=== PATIENT | male | born 1955 | race Native Hawaiian/Other Pacific Islander ===

== ENCOUNTER 2016-10-03 05:39 | Outpatient (CLI) | payer BC ==
[~2016-10-03] VITALS: Ht 157.5 cm; Wt 68.4 kg
[~2016-10-03 05:39] MED LIST: ASP81CT PO; ATRV10T PO; GLIP5TAB13 PO; LISI5TAB PO; METF-380 PO; METO50TA7 PO; ONDA4TAB11 PO; OXYC-12 PO; PRM25T PO; RNT150T PO
[2016-10-03] MEDS ORDERED: GLIP10TA13 PO (12:34)
== END 2016-10-03 12:37 ==
LOC: PREOP 05:39
PROVIDERS: ATTEND Surgery
DX: Z01.818 Encounter for other preprocedural examination (principal); K21.9 Gastro-esophageal reflux disease without esophagitis; K62.89 Other specified diseases of anus and rectum; K62.5 Hemorrhage of anus and rectum

== ENCOUNTER 2016-10-16 08:18 | Day surgery (SDC) | payer BC ==
[~2016-10-16] VITALS: Ht 157.5 cm; Wt 68.4 kg
[~2016-10-16 08:18] MED LIST changes: +GLIP10TA13 PO
--- OUTSIDE RECORDS SUMMARY | 2016-10-16 08:23 | XMS REPORT ---
Author Author GERMAN THAKUR Organization eClinicalWorks Address Unknown Phone Unavailable Care Team Providers Care Currency Machine Operator Name Role Phone GERMAN THAKUR CP Unavailable Allergies No Known Allergies Problems Problem Type Condition Code Onset Dates Condition Status Problem Unspecified infective otitis externa 380.10 Active Problem Unspecified hypotension 458.9 Active Problem Routine general medical examination at health care facility V70.0 Active Problem Sinusitis 473.9 Active Problem Dehydration 276.51 Active Problem Otitis media 382.9 Active Problem Impacted cerumen 380.4 Active Problem Unspecified hearing loss 389.9 Active Problem Unspecified subjective visual disturbance 368.10 Active Problem Diabetes mellitus without mention of complication, type II or unspecified type, not stated as uncontrolled 250.00 Active Medications Medication Code System Code Instructions Start Date End Date Status Dosage Lisinopril [facility] [address]-99 5 MG Mar 25, 2014 take 1 tablet by Oral route 1 time per day Metformin HCl [facility] 44521216982 1000 MG TAKE ONE TABLET BY MOUTH TWICE DAILY WITH MORNING AND EVENING MEALS GlipiZIDE [facility] 23373109619 10 MG TAKE ONE TABLET BY MOUTH IN THE MORNING AND ONE-HALF TABLET BY MOUTH EVERY EVENING Results No Known Results Summary Purpose eClinicalWorks Submission
--- OUTSIDE RECORDS SUMMARY | 2016-10-16 08:23 | XMS REPORT ---
Author GERMAN [facility]l [facility] eClinicalWorks Address Unknown Phone Unavailable Care Team Providers Care Sleeve Maker Name Role Phone GERMAN THAKUR CP Unavailable Allergies, Adverse Reactions, Alerts Substance Reaction Event Type N.K.D.A. Info Not Available Non Drug Allergy Problems Problem Type Condition Code Onset Dates Condition Status Problem Routine general medical examination at health care facility V70.0 Active Problem Unspecified hearing loss 389.9 Active Problem Unspecified hypotension 458.9 Active Assessment Type 2 diabetes mellitus without complications E11.9 Active Problem Unspecified infective otitis externa 380.10 Active Problem Otitis media 382.9 Active Problem Sinusitis 473.9 Active Problem Type 2 diabetes mellitus without complications E11.9 Active Problem Diabetes mellitus without mention of complication, type II or unspecified type, not stated as uncontrolled 250.00 Active Problem Impacted cerumen 380.4 Active Problem Dehydration 276.51 Active Problem Unspecified subjective visual disturbance 368.10 Active Medications Medication Code System Code Instructions Start Date End Date Status Dosage Blood Glucose Test Strip NDC 0 Twice daily with lancets 1 Test Blood Glucose Test NDC 0 Blood Glucose 2 times a day ONE TOUCH ULTRA DX E11.9 August 07, 2014 as directed and lancets GlipiZIDE [facility] [address]-99 10 mg Once a day, am, and 1/2 tab in pm 1 tablet Metformin HCl [facility] [address]-28 1000 MG 2 times a day 1 tablet with meals Atorvastatin Calcium [facility] [address]-99 10 mg Once a day 1 tablet Lisinopril [facility] [address]-26 5 mg Once a day 1 tablet Loratadine [facility] [address]-64 10 mg Once a day 1 tablet Procedures Procedure Coding System Code Date Office Visit, Est Pt., Level 3 CPT-4 34892 Jan 21, 2016 GLYCATED HEMOGLOBIN TEST CPT-4 62683 Jan 21, 2016 Vital Signs Date/Time: Jan 21, 2016 Cardiac Monitoring Heart Rate 72 bpm Weight 161.6 lbs Height 63 in BMI 28.62 Index Blood Pressure Diastolic 66 mmHg Blood Pressure Systolic 108 mmHg Results Name Result Date Reference Range Unit Abnormality Flag A1C (IN HOUSE) ----A1C IN HOUSE 8.2 20160121 4.3 - 5.6 % ----Previous A1c 7.4 20160121 ----Lot [id number] ----Exp date 20160121 Summary Purpose eClinicalWorks Submission
--- OUTSIDE RECORDS SUMMARY | 2016-10-16 08:23 | XMS REPORT ---
Author Author GERMAN THAKUR [facility] eClinicalWorks Address Unknown Phone Unavailable Care Team Providers Care Produce Shipper Name Role Phone GERMAN THAKUR CP Unavailable [...] type, not stated as uncontrolled 250.00 Active Assessment Vision changes H53.9 Active Assessment Type 2 diabetes mellitus without complications E11.9 Active Assessment Hearing loss, bilateral H91.93 Active Medications Medication Code System Code Instructions Start Date End Date Status Dosage Blood Glucose Test NDC 0 Blood Glucose 2 times a day ONE TOUCH ULTRA DX 250.01 August 07, 2014 as directed and lancets Blood Glucose Test Strip NDC 0 Twice daily with lancets 1 Test Lisinopril [facility] [address]-60 5 MG Mar 25, 2014 take 1 tablet by Oral route 1 time per day Metformin HCl [facility] 42881288617 1000 MG TAKE ONE TABLET BY MOUTH TWICE DAILY WITH MORNING AND EVENING MEALS GlipiZIDE ND 37259777208 10 MG TAKE ONE TABLET BY MOUTH IN THE MORNING AND ONE-HALF TABLET BY MOUTH EVERY EVENING Procedures Procedure Coding System Code Date Office Visit, Est Pt., Level 3 CPT-4 76771 Mar 17, 2015 GLYCATED HEMOGLOBIN TEST CPT-4 68547 Mar 17, 2015 Vital Signs Date/Time: Mar 17, 2015 Temperature 98.0 F Weight 154 lbs Height 63 in BMI 27.28 Index Blood Pressure Diastolic 62 mmHg Blood Pressure Systolic 140 mmHg Cardiac Monitoring Heart Rate 78 bpm Results Name Result Date Reference Range Unit Abnormality Flag A1C (IN HOUSE) ----A1C IN HOUSE 7.9 [id number] 4.3 - 5.6 % ----Previous A1c 7.1 [id number] ----Lot [id number] ----Exp date 20150317 Summary Purpose eClinicalWorks Submission
--- OUTSIDE RECORDS SUMMARY | 2016-10-16 08:24 | XMS REPORT ---
Author GERMAN [facility] eClinicalWorks Address Unknown Phone Unavailable Care Team Providers Care Hearing Instrument Specialist Name Role Phone GERMAN THAKUR CP Unavailable [...] August 07, 2014 as directed and lancets Atorvastatin Calcium [facility] [address]-77 10 mg Once a day 1 tablet Metformin HCl [facility] [address]-55 1000 MG 2 times a day 1 tablet with meals Loratadine [facility] [address]-24 10 mg Once a day 1 tablet GlipiZIDE [facility] [address]-45 10 mg Once a day, am, and 1/2 tab in pm 1 tablet Lisinopril [facility] [address]-01 5 mg Once a day 1 tablet Colace [facility] 51401255809 100 MG Orally Once a day 1 capsule as needed Procedures Procedure Coding System Code Date Office Visit, Est Pt., Level 3 CPT-4 58752 September 17, 2015 GLYCATED HEMOGLOBIN TEST CPT-4 27907 September 17, 2015 Vital Signs Date/Time: September 17, 2015 Cardiac Monitoring Heart Rate 68 bpm Weight 158.4 lbs Height 63 in Blood Pressure Diastolic 64 mmHg Blood Pressure Systolic 108 mmHg Results No Known Results Summary Purpose eClinicalWorks Submission
--- OUTSIDE RECORDS SUMMARY | 2016-10-16 08:24 | XMS REPORT ---
Author GERMAN Morel Organization [employer]Works Address Unknown Phone Unavailable Care Team Providers Care Care Taker Name Role Phone GERMAN THAKUR CP Unavailable Allergies No Known Allergies Problems Problem Type Condition Code Onset Dates Condition Status Problem Routine general medical examination at health care facility V70.0 Active Problem Unspecified hearing loss 389.9 Active Problem Unspecified hypotension 458.9 Active Problem Unspecified infective otitis externa 380.10 [...] August 07, 2014 as directed and lancets Results No Known Results Summary Purpose eClinicalWorks Submission
--- OUTSIDE RECORDS SUMMARY | 2016-10-16 08:24 | XMS REPORT ---
Author GERMAN Morel Organization eClinicalWorks Address Unknown Phone Unavailable Care Team Providers Care Human Resources Advisor Name Role Phone GERMAN THAKUR CP Unavailable [...] Unspecified subjective visual disturbance 368.10 Active Medications No Known Medications Results No Known Results Summary Purpose eClinicalWorks Submission
--- OUTSIDE RECORDS SUMMARY | 2016-10-16 08:25 | XMS REPORT | Continuity of Care Document ---
Author Author [facility] Address Unknown Phone Unavailable Allergies Medications Problems Date Dx Coded Attending Type Code Diagnosis Diagnosed By 02/14/2012 GERMAN THAKUR APRN 250.00 DIABETES II CONTROLLED (UNCOMPLICATED) 02/14/2012 GERMAN THAKUR APRN 380.4 CERUMEN IMPACTION 02/14/2012 ALLIE CORTEZ DO 250.00 DIABETES II CONTROLLED (UNCOMPLICATED) 02/14/2012 ALLIE CORTEZ DO 380.4 CERUMEN IMPACTION 02/14/2012 GERMAN THAKUR APRN 250.00 DIABETES II CONTROLLED (UNCOMPLICATED) 02/14/2012 GERMAN THAKUR APRN 380.4 CERUMEN IMPACTION 02/14/2012 250.00 DIABETES II CONTROLLED (UNCOMPLICATED) 02/14/2012 380.4 CERUMEN IMPACTION 02/14/2012 250.00 DIABETES II CONTROLLED (UNCOMPLICATED) 02/14/2012 380.4 CERUMEN IMPACTION 02/14/2012 GERMAN THAKUR APRN 250.00 DIABETES MELLITUS TYPE 2 02/14/2012 GERMAN THAKUR APRN 380.4 CERUMEN IMPACTION 02/14/2012 250.00 DIABETES MELLITUS TYPE 2 02/14/2012 380.4 CERUMEN IMPACTION 02/14/2012 GERMAN THAKUR APRN 250.00 DIABETES MELLITUS TYPE 2 02/14/2012 GERMAN THAKUR APRN 380.4 CERUMEN IMPACTION 02/14/2012 OMALLEYVIKTOR DAVIS DDS 250.00 DIABETES MELLITUS TYPE 2 02/14/2012 VIKTOR OMALLEY DDS 380.4 CERUMEN IMPACTION 02/14/2012 GERMAN THAKUR APRN 250.00 DIABETES MELLITUS TYPE 2 02/14/2012 GERMAN THAKUR APRN 380.4 CERUMEN IMPACTION 02/26/2012 ALLIE CORTEZ DO 380.10 INFECTIVE OTITIS EXTERNA UNSPECIFIED 02/26/2012 ALLIE CORTEZ DO V70.0 ROUTINE GENERAL MEDICAL EXAMINATION AT A HEALTH CARE FACILITY 02/26/2012 GERMAN THAKUR APRN 380.10 INFECTIVE OTITIS EXTERNA UNSPECIFIED 02/26/2012 GERMAN THAKUR APRN V70.0 ROUTINE GENERAL MEDICAL EXAMINATION AT A HEALTH CARE FACILITY 02/26/2012 380.10 INFECTIVE OTITIS EXTERNA UNSPECIFIED 02/26/2012 V70.0 ROUTINE GENERAL MEDICAL EXAMINATION AT A HEALTH CARE FACILITY 02/26/2012 380.10 INFECTIVE OTITIS EXTERNA UNSPECIFIED 02/26/2012 V70.0 ROUTINE GENERAL MEDICAL EXAMINATION AT A HEALTH CARE FACILITY 02/26/2012 GERMAN THAKUR APRN 380.10 INFECTIVE OTITIS EXTERNA UNSPECIFIED 02/26/2012 GERMAN THAKUR APRN V70.0 ROUTINE GENERAL MEDICAL EXAMINATION AT A HEALTH CARE FACILITY 02/26/2012 380.10 INFECTIVE OTITIS EXTERNA UNSPECIFIED 02/26/2012 V70.0 ROUTINE GENERAL MEDICAL EXAMINATION AT A HEALTH CARE FACILITY 02/26/2012 GERMAN THAKUR APRN 380.10 INFECTIVE OTITIS EXTERNA UNSPECIFIED 02/26/2012 GERMAN THAKUR APRN V70.0 ROUTINE GENERAL MEDICAL EXAMINATION AT A HEALTH CARE FACILITY 02/26/2012 OM[facility] DDSVIKTOR 380.10 INFECTIVE OTITIS EXTERNA UNSPECIFIED 02/26/2012 [facility] DDSVIKTOR V70.0 ROUTINE GENERAL MEDICAL EXAMINATION AT A HEALTH CARE FACILITY 02/26/2012 GERMAN THAKUR APRN 380.10 INFECTIVE OTITIS EXTERNA UNSPECIFIED 02/26/2012 GERMAN THAKUR APRN V70.0 ROUTINE GENERAL MEDICAL EXAMINATION AT A HEALTH CARE FACILITY 03/19/2012 GERMAN THAKUR APRN 389.9 HEARING LOSS UNSPEC 03/19/2012 GERMAN THAKUR APRN 458.9 HYPOTENSION 03/19/2012 389.9 HEARING LOSS UNSPEC 03/19/2012 458.9 HYPOTENSION 03/19/2012 389.9 HEARING LOSS UNSPEC 03/19/2012 458.9 HYPOTENSION 03/19/2012 GERMAN THAKUR APRN 389.9 HEARING LOSS UNSPEC 03/19/2012 GERMAN THAKUR APRN 458.9 HYPOTENSION 03/19/2012 389.9 HEARING LOSS UNSPEC 03/19/2012 458.9 HYPOTENSION 03/19/2012 GERMAN THAKUR APRN 389.9 HEARING LOSS UNSPEC 03/19/2012 GERMAN THAKUR APRN 458.9 HYPOTENSION 03/19/2012 OM[facility] VIKTOR RAMIREZ 389.9 HEARING LOSS UNSPEC 03/19/2012 VIKTOR OMALLEY DDS 458.9 HYPOTENSION 03/19/2012 GERMAN THAKUR APRN 389.9 HEARING LOSS UNSPEC 03/19/2012 GERMAN THAKUR APRN 458.9 HYPOTENSION 06/05/2012 276.51 DEHYDRATION 06/05/2012 276.51 DEHYDRATION 06/05/2012 GERMAN THAKUR APRN 276.51 DEHYDRATION 06/05/2012 276.51 DEHYDRATION 06/05/2012 GERMAN THAKUR APRN 276.51 DEHYDRATION 06/05/2012 VIKTOR OMALLEY DDS 276.51 DEHYDRATION 06/05/2012 GERMAN THAKUR APRN 276.51 DEHYDRATION 11/06/2012 GERMAN THAKUR APRN 368.10 VISUAL DISTURBANCE UNSPECIFIED 11/06/2012 368.10 VISUAL DISTURBANCE UNSPECIFIED 11/06/2012 GERMAN THAKUR APRN 368.10 VISUAL DISTURBANCE UNSPECIFIED 11/06/2012 VIKTOR OMALLYE DDS 368.10 VISUAL DISTURBANCE UNSPECIFIED 11/06/2012 GERMAN THAKUR APRN 368.10 VISUAL DISTURBANCE UNSPECIFIED Procedures Code [place] [address] ROUTINE VENIPUNCTURE 02/26/2012 92303 A1C (IN-HOUSE) 58612 CMP 02/26/2012 0114144 GFR CALC (RESULT ONLY) 02/26/2012 85538 CBC 02/26/2012 46531 TSH 02/27/2012 30527 REMOVE IMPACTED EAR WAX 02/28/2012 Family Chey Blackburn 03/19/2012 69213 ROUTINE VENIPUNCTURE 06/05/2012 31730 A1C (IN-HOUSE) 77857 CMP 06/05/2012 22164 LIPID PANEL 06/05 67903 CBC 06/05/2012 Archie Maurice 02/17/2013 81044 A1C (IN-HOUSE) Results Encounters ACCT No. Visit Date/Time Discharge Status Pt. Type Provider Facility Loc./Unit Complaint [id number] 03/26/2014 08:42:00 03/26/2014 23: 59:59 CLS Outpatient GERMAN THAKUR APRN [id number] 12/30/2013 10:02:00 12/30/2013 23: 59:59 CLS Outpatient VIKTOR OMALLEY DDS [id number] 03/31/2013 11:48:00 03/31/2013 23: 59:59 CLS Outpatient GERMAN THAKUR APRN [id number] 01/08/2013 05:52:00 01/08/2013 23: 59:59 CLS Outpatient [id number] 11/06/2012 16:39:00 11/06/2012 23: 59:59 CLS Outpatient GERMAN THAKUR APRN [id number] 06/05/2012 11:45:00 06/05/2012 23: 59:59 CLS Outpatient [id number] 03/19/2012 13:33:00 03/19/2012 23: 59:59 CLS Outpatient GERMAN THAKUR APRN [id number] 02/26/2012 09:52:00 02/26/2012 23: 59:59 CLS Outpatient ALLIE CORTEZ DO [id number] 02/14/2012 09:59:00 02/14/2012 23: 59:59 CLS Outpatient GERMAN THAKUR APRN [id number] 06/19/2012 14:49:00 Document Registration
[2016-10-16 08:35] VITALS: BP 131/64
[2016-10-16] MEDS ORDERED: NS IV 500 ML 500 ML IV PRN (08:35)
[2016-10-16] MEDS ORDERED: HURRICAINE EXT TUBE (BENZOCAINE) XX PRN (08:45)
[2016-10-16] MEDS ORDERED: NS IV 500 ML 500 ML ONE (08:53)
[2016-10-16] MEDS ORDERED: ATOR10TA66 PO (09:22)
[2016-10-16] MEDS ORDERED: ATOR10TA PO (09:22)
[2016-10-16] MEDS ORDERED: METF1000 PO (09:22)
[2016-10-16] MEDS ORDERED: fentaNYL INJECTION 100 MCG/2 ML AMP ONE ×2 (11:02)
[2016-10-16] MEDS ORDERED: HURRICAINE EXT TUBE (BENZOCAINE) ONE (11:02)
[2016-10-16] MEDS ORDERED: MIDAZOLAM 2 MG/2 ML (VERSED) VIAL ONE ×3 (11:02)
--- NOTE | 2016-10-16 11:29 | History & Physicial ---
History of Present Illness History of Present Illness Reason for visit/HPI to undergo an upper endoscopy to evaluate symptoms of gastroesophageal reflux and concomitant colonoscopy to investigate rectal bleeding. Most of the history was obtained from his sister, due to his inability with communication in [place]. Date of Admission Date Seen by Provider: Oct 16, 2016 Time Seen by Provider: 11:28 I consulted on this patient on 10/16/16 11:27 Attending Physician Maria D Suggs MD Admitting Physician Lanny,[facility] Allergies and Home Medications Allergies Coded Allergies: No Known Drug Allergies (Unverified , 01/21/12) Home Medications Atorvastatin Calcium 10 Mg Tablet, 10 MG PO HS, (Reported) Glipizide 10 Mg Tablet, 5-10 MG PO BID, (Reported) take 1 (10mg) tab in am take 1/2 of 5mg tab in pm Lisinopril 5 Mg Tablet, 5 MG PO DAILY, (Reported) Metformin HCl 1,000 Mg Tablet, 1,000 MG PO BID, (Reported) Past Tiuqxey-Iptzfx-Nuvnhf Hx Patient Social History Marrital Status: Employed/Student: unemployed Alcohol Use: Denies Use Recreational Drug Use: No Smoking Status: Never a Smoker Recent Foreign Travel: No Contact w/other who traveled: No Recent Hopitalizations: No Recent Infectious Disease Expo: No Immunizations Up To Date Tetanus Booster (TDap): Unknown Pediatric: No Date of Pneumonia Vaccine: May 27, 2012 Surgeries Appendectomy, Eye Surgery Cardiovascular High Cholesterol, Hypertension Reproductive System Hx Reproductive Disorders: No Gastrointestinal Gastroesophageal Reflux, Chronic Constipation Endocrine Endocrine Disorders: Diabetes, Non-Insulin dep HEENT Hearing Impairment: Hard of Hearing Family Medical History Significant Family History: No Pertinent Family Hx Constitutional: malaise EENTM: no symptoms reported Respiratory: no symptoms reported Cardiovascular: no symptoms reported Gastrointestinal: heartburn, melena Genitourinary: no symptoms reported Musculoskeletal: no symptoms reported Skin: no symptoms reported Psychiatric/Neurological: No Symptoms Reported Physical Exam Vital Signs Vital Sign - Last 12Hours 10/16/16 08:35 Temp 97.7 Pulse 68 Resp 16 B/P (MAP) 131/64 Pulse Ox 96 O2 Delivery Room Air Capillary Refill : General Appearance: No Apparent Distress HEENT: Normal ENT Inspection Neck: Normal Inspection Respiratory: Lungs Clear Cardiovascular: Regular Rate, Rhythm Gastrointestinal: Non Tender, Soft Rectal: Deferred Extremity: Normal Inspection Neurologic/Psychiatric: Alert, Oriented x3 Skin: Warm/Dry Assessment/Plan Assessment and Plan gentleman with symptoms of reflux disease and a history of rectal bleeding. For combined upper endoscopy and colonoscopy. Problems: MARIA D SUGGS MD Oct 16, 2016 11:29 am
[2016-10-16] MEDS: fentaNYL INJECTION 100 MCG/2 ML AMP IVP PRN ×2 (11:30→11:37)
--- NOTE | 2016-10-16 11:30 | Conscious Sedation/ASA ---
Conscious Sedation Pre-Proced Time Reviewed: 11:29 ASA Class: 2 Airway Mallampati Classification: (viejas appropriate class) I. II. III, IV Lungs Heart ASA score ASA 1: a normal healthy patient ASA 2: a patient with a mild systemic disease (mid diabetes, controlled hypertension, obesity ASA 3: a patient with a severe systemic disease that limits activity (angina , COPD, prior Myocardial infarction) ASA 4: a patient with an incapacitating disease that is a constant threat to life (CHF, renal failure) ASA 5: a moribund patient not expected to survive 24 hrs. (ruptured aneurysm) ASA 6: a declared brain patient whose organs are being harvested. For emergent operations, add the letter E after the classification Grade 2 Sedation Plan: Discussed options with patient/fam Note The patient is an appropriate candidate to undergo the planned procedure, sedation, and anesthesia. The patient immediately re-assessed prior to indication. MARIA D SUGGS MD Oct 16, 2016 11:30 am
[2016-10-16] MEDS: MIDAZOLAM 2 MG/2 ML (VERSED) VIAL IVP PRN ×3 (11:35→11:46)
--- NOTE | 2016-10-16 12:23 | Endo Procedure Record ---
Endo Procedure Report Date of Procedure Oct 16, 2016 Surgeon (s) MARIA D SUGGS MD Post Procedure/Op Diagnosis EGD: Grade 2 distal esophageal varices. Distal gastritis and duodenitis Colonoscopy: Internal and external hemorrhoids Procedure Performed EGD with antral biopsy Colonoscopy to cecum Description of Procedure Anesthesia Type: Conscious Sedation Specimen(s) collected/removed antral mucosa Description of the Procedure Indication for the procedures: This gentleman came in for an upper endoscopy to evaluate symptoms of reflux disease and concomitant colonoscopy to investigate rectal pain along with rectal bleeding. Informed consent was obtained with the help of his sister due to his inability due to comprehend and speak Tajik. Description of the procedures: EGD: He was placed in left lateral decubitus position and his vital signs were monitored. Conscious sedation was achieved using Versed and fentanyl. The flexible gastroscope was introduced down the esophagus, past the stomach, into the proximal duodenum. Findings: Esophagus: Grade 2 esophageal varices involving the distal end. Stomach: Evidence of distal gastritis without any ulceration. Biopsy for H. pylori was obtained. Duodenum: Changes of duodenitis with found along the first part. There was no ulceration. He tolerated the procedure well and was turned around in preparation for colonoscopy. Impression: Symptoms of reflux, esophageal varices requiring further evaluation as to the etiologydistal gastritis and duodenitis. Helicobacter status pending. Colonoscopy: Examination of the perianal area revealed large external hemorrhoids. Digital examination was otherwise unremarkable. The colonoscope was then introduced into the rectum and advanced to the cecum. It was then withdrawn slowly and the mucosa examined in a systematic fashion. Finding: Internal hemorrhoids, the possible source of his bleeding. It is likely that he may have occult portal hypertension contributing to esophageal varices and the distal hemorrhoids. This requires further evaluation possibly involving the safety leader. He tolerated both procedures reasonably well and was taken back to the nursing area in a stable condition Impression: Rectal bleeding due to hemorrhoids. Incidental esophageal varices this, making the possibility of portal hypertension likely. Recommend evaluation by a safety leader. Copies To: ALLIE CORTEZ XAVIER M MD Oct 16, 2016 12:23 pm
--- NOTE | 2016-10-16 12:26 | Discharge Inst-Simple/Standard ---
Discharge Inst-Standard Discharge Medications New, Converted or Re-Newed RX: Other Patient Instructions/Follow Up Plan of Care/Instructions/FU: follow-up with his primary provider to seek an appointment with a control systems engineer Activity as Tolerated: Yes Discharge Diet: No Restrictions MARIA D SUGGS MD Oct 16, 2016 12:26 pm
[2016-10-16 12:30] VITALS: BP 107/72
[2016-10-16 13:00] VITALS: BP 114/63
--- NOTE | 2016-10-16 13:22 | Discharge Inst-Simple/Standard ---
Discharge Inst-Standard Discharge Medications New, Converted or Re-Newed RX: Other Patient Instructions/Follow Up Plan of Care/Instructions/FU: to follow up with his primary and have a consultation with a public information relations manager arranged Activity as Tolerated: Yes Discharge Diet: ADA Diet MARIA D SUGGS MD Oct 16, 2016 1:21 pm
[2016-10-16 14:00] VITALS: BP 114/63
== END 2016-10-16 14:00 | disposition home or self-care (01) ==
LOC: ENDO 08:18
PROVIDERS: ATTEND Surgery
DX: I85.00 Esophageal varices without bleeding (principal); K62.5 Hemorrhage of anus and rectum; K29.60 Other gastritis without bleeding; K29.80 Duodenitis without bleeding; K64.4 Residual hemorrhoidal skin tags; K64.8 Other hemorrhoids; K21.9 Gastro-esophageal reflux disease without esophagitis; E11.9 Type 2 diabetes mellitus without complications
CPT/HCPCS: 82962

== ENCOUNTER 2020-10-31 11:39 | Observation (INO) | payer SELFPAY ==
[~2020-10-31] VITALS: Ht 165 cm; Wt 78.0 kg
[~2020-10-31 11:39] MED LIST changes: +ATOR10TA PO; +ATOR10TA66 PO; +METF-399 PO
[2020-10-31 12:06] LABS: BASOPHILS # (AUTO) 0.1 10^3/uL (0.0-0.1); BASOPHILS % (AUTO) 1 % (0-10); EOSINOPHILS # (AUTO) 0.2 10^3/uL (0.0-0.3); EOSINOPHILS % (AUTO) 2 % (0-10); HEMATOCRIT 41 % (40-54); HEMOGLOBIN 13.8 g/dL (13.3-17.7); LYMPHOCYTES # (AUTO) 1.8 10^3/uL (1.0-4.0); LYMPHOCYTES % (AUTO) 22 % (12-44); MEAN CORPUSCULAR HEMOGLOBIN 31 pg (25-34); MEAN CORPUSCULAR HGB CONC 34 g/dL (32-36); MEAN CORPUSCULAR VOLUME 93 fL (80-99); MEAN PLATELET VOLUME 10.6 fL (9.0-12.2); MONOCYTES # (AUTO) 0.6 10^3/uL (0.0-1.0); MONOCYTES % (AUTO) 7 % (0-12); NEUTROPHILS # (AUTO) 5.7 10^3/uL (1.8-7.8); NEUTROPHILS % (AUTO) 68 % (42-75); PLATELET COUNT 153 10^3/uL (130-400); WHITE BLOOD COUNT 8.5 10^3/uL (4.3-11.0)
[2020-10-31 12:08] LABS: CHLORIDE 101 MMOL/L (98-107); POTASSIUM 4.7 MMOL/L (3.6-5.0); SODIUM 133 MMOL/L (135-145)
[2020-10-31 12:09] LABS: CALCIUM 9.8 MG/DL (8.5-10.1)
[2020-10-31 12:10] LABS: GLUCOSE 206 MG/DL (70-105); TOTAL PROTEIN 7.4 GM/DL (6.4-8.2)
[2020-10-31 12:11] LABS: CARBON DIOXIDE 21 MMOL/L (21-32)
[2020-10-31 12:12] LABS: BILIRUBIN,TOTAL 0.7 MG/DL (0.1-1.0)
[2020-10-31 12:14] LABS: ALKALINE PHOSPHATASE 60 U/L (40-136); CREATININE SERUM 2.26 MG/DL (0.60-1.30); GFR ESTIMATED 29
[2020-10-31 12:15] LABS: BUN/CREATININE RATIO 23
[2020-10-31 12:17] LABS: ALANINE AMINOTRANSFERASE 21 U/L (0-55)
[2020-10-31 12:23] LABS: FIBRIN DEGRADATION PRODUCTS < 0.27 UG/ML (0.00-0.49); INR 0.9 (0.8-1.4); PARTIAL THROMBOPLASTIN TIME 25 SEC (24-35); PROTHROMBIN TIME PATIENT 12.7 SEC (12.2-14.7)
--- NOTE | 2020-10-31 12:25 | Diagnostic Imaging Report ---
PROCEDURE: CT head wo r/o stroke. TECHNIQUE: Multiple contiguous axial images were obtained through the brain without the use of intravenous contrast. Auto Exposure Controls were utilized during the CT exam to meet ALARA standards for radiation dose reduction. DATE: October 31, 2020. COMPARISON: None. INDICATION: 65-year-old male, neuro deficit. Evaluation for stroke. FINDINGS: The ventricles and cerebral spinal fluid spaces are of normal size and configuration for the patient's age. There is no mass effect or midline shift. There is no acute intracranial hemorrhage. There is no abnormal extra-axial fluid collection. The visualized portions of the paranasal sinuses, mastoid air cells and middle ears are well aerated. IMPRESSION: 1. No identified acute intracranial abnormality. Dictated by: Dictated on workstation # [id number]
--- NOTE | 2020-10-31 12:33 | Diagnostic Imaging Report ---
PROCEDURE: CT chest, abdomen, and pelvis without contrast. TECHNIQUE: Multiple contiguous axial images were obtained through the chest, abdomen, and pelvis without the use of intravenous contrast. Auto Exposure Controls were utilized during the CT exam to meet ALARA standards for radiation dose reduction. Date: October 31, 2020. Indication: 65-year-old male, left flank pain, syncope. Comparison: CT abdomen pelvis January 25, 2016. Chest radiograph October 31, 2020. Findings: There is no identified pulmonary nodule. There is no lung mass. There is respiratory motion artifact. There is atelectasis most notable in the lower lobes. There is no additional focal airspace consolidation. There is no pneumothorax. There is no pleural effusion. The heart is not enlarged. There is no pericardial effusion. There are coronary artery calcifications. There is no abnormally enlarged mediastinal or axillary lymph node meeting CT size criteria for adenopathy. The liver is unremarkable in size and contour. The patient is status post cholecystectomy. There is no biliary ductal dilation. The main pancreatic duct is not grossly dilated. Limited noncontrast evaluation of the pancreatic parenchyma is unremarkable. The spleen is normal in size. The adrenal glands are unremarkable. Unremarkable appearance of the renal parenchyma. The urinary collecting systems are not distended. No identified renal or ureteral stone. Urinary bladder is unremarkable. There is a large volume stool in the rectum which is mildly distended. There is an additional moderate to large volume colonic stool. There is questioned mild wall thickening of the distal transverse colon. There is no evidence of acute appendicitis. There is no free intraperitoneal air. There is no drainable fluid collection. There is no free pelvic fluid. There are atherosclerotic calcifications. There is no identified abnormally enlarged lymph node in the abdomen or pelvis meeting CT size criteria for adenopathy. There are degenerative changes of the spine. There is no identified acute bony abnormality. Impression: 1. No identified acute abnormality of the chest, abdomen, or pelvis. 2. Large volume stool in the rectum which is mildly distended. Additional mild to moderate volume colonic stool. Dictated by: Dictated on workstation # [id number]
--- NOTE | 2020-10-31 12:34 | Diagnostic Imaging Report ---
EXAMINATION: Chest radiograph, portable AP view. DATE: 10/31/2020 12:20 PM INDICATION: 65-year-old male, syncope. COMPARISON: January 21, 2012. FINDINGS: Heart size and mediastinal contours are unchanged. There is no identified pneumothorax, large pleural effusion, or focal airspace consolidation. IMPRESSION: No identified acute cardiopulmonary abnormality. Dictated by: Dictated on workstation # [id number]
--- NOTE | 2020-10-31 13:03 | History & Physical-Hospitalist ---
History of Present Illness HPI/Chief Complaint Chief complaint: Syncopal episode History of present illness: This is a 65-year-old male clinic patient of [facility] with intellectual disability and language barrier who presents with his 2 sisters 1 of whom he lives with after suffering a syncopal episode while he was in the car waiting for a to finish. An extensive work-up was done no evidence of any type of stroke but it was recommended to monitor and observation for any cardiac arrhythmia or any other type of self-limited issue. 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 Patients Allergies have been reviewed. Allergies Allergies Coded Allergies No Known Drug Allergies (Verified10/16/16) Past Ywhhaea-Sistjd-Gqcdoa Hx Patient Social History Marrital Status: single Employed/Student: unemployed Tobacco Use?: No Smoking Status: Never a Smoker Use of E-Cig and/or Vaping dev: No Substance use?: No Alcohol Use?: No Pt feels they are or have been: No Immunizations Up To Date Second COVID19 Vaccination Gordon: 2 MO AGO 2020 PER FAM Tetanus Booster (TDap): Unknown PED Vaccines UTD: No Date of Pneumonia Vaccine: May 27, 2012 Current Status Advance Directives: No Communicates: Verbally Primary Language: [place] Preferred Spoken Language: [place] Is interpretation needed?: No Past Medical History Surgeries: Appendectomy, Eye Surgery High Cholesterol, Hypertension Gastroesophageal Reflux, Chronic Constipation Diabetes, Non-Insulin dep Hearing Impairment: Hard of Hearing Family Medical History No Pertinent Family Hx Review of Systems Constitutional: see HPI EENTM: no symptoms reported Respiratory: no symptoms reported Cardiovascular: no symptoms reported Gastrointestinal: no symptoms reported Genitourinary: no symptoms reported Skin: no symptoms reported Psychiatric/Neurological: No Symptoms Reported All Other Systems Reviewed Negative Unless Noted: Yes Physical Exam Physical Exam Vital Signs Vital Signs - First Documented 10/31/20 12:43 Temp 35.6 Pulse 88 Resp 22 B/P (MAP) 127/90 (102) Pulse Ox 96 O2 Delivery Room Air Capillary Refill : Height, Weight, BMI Height: 5'2.00" Weight: 150lbs. 11.6oz. 68.872053gd; 29.00 BMI Method:Stated General Appearance: No Apparent Distress, Obese Eyes: Right Eye Normal Inspection, Right Eye PERRL HEENT: PERRL/EOMI, Normal ENT Inspection, Pharynx Normal, Moist Mucous Membranes Neck: Full Range of Motion, Normal Inspection, Non Tender Respiratory: Chest Non Tender, Lungs Clear, Normal Breath Sounds, No Accessory Muscle Use, No Respiratory Distress Cardiovascular: Regular Rate, Rhythm, No Edema, No Gallop, No JVD, No Murmur, Normal Peripheral Pulses Gastrointestinal: Normal Bowel Sounds, No Organomegaly, No Pulsatile Mass, Non Tender, Soft Back: Normal Inspection, No CVA Tenderness, No Vertebral Tenderness Extremity: Normal Capillary Refill, Normal Inspection, Normal Range of Motion, Non Tender, No Calf Tenderness, No Pedal Edema Neurologic/Psychiatric: Alert, Oriented x3, No Motor/Sensory Deficits, Normal Mood/Affect Skin: Normal Color, Warm/Dry Lymphatic: No Adenopathy Results Results/Procedures Labs Laboratory Tests 10/31/20 11:47 11/01/20 05:49 Patient resulted labs reviewed. Assessment/Plan Admission Diagnosis Assessment: Syncope Acute kidney injury Presumed dehydration Intellectual disability Language barrier Hypertension Hyperlipidemia Plan: Supportive care Observe Admission Status: Observation Diagnosis/Problems Diagnosis/Problems (1) Syncope Status: Acute Qualifiers: Syncope type: unspecified Qualified Codes: R55 - Syncope and collapse (2) Acute kidney injury Status: Acute (3) Dehydration Status: Acute HECTOR ROBERTS DO Oct 31, 2020 13:02
--- NOTE | 2020-10-31 13:22 | ED Neurological Problem ---
General Chief Complaint: Neurological Problems Stated Complaint: NEURO ISSUES Nursing Triage Note: PATIENT FAMILY STATE PATIENT HAS A HISTORY OF MR AND AUTISM. THIS PATIENT SPEAKS [place], PATIENT CONVERSING WITH FAMILY IN [place] LANGUAGE. THEY STATE THIS IS MORE HIS BASELINE THAN WHEN PICKED UP BY EMS. Source: patient, family, EMS, cold press loader (Sisters) Exam Limitations: language barrier History of Present Illness Date Seen by Provider: Oct 31, 2020 Time Seen by Provider: 11:45 Initial Comments This 65-year-old gentleman is brought to the emergency room by EMS after having a unresponsive or syncopal episode. His family was attending a . He was reported to be normal in route to the between 1000 and 1030. The family left the car and went into the . He stated he would wait in the car for a bit and come in in a few minutes. He did not arrive into the and was found to be unresponsive when his brother went out to check on him. He was diaphoretic and had vomited. There was no observed seizure-like activity. He has not been known to have any type of syncope or seizure in the past. EMS reports blood sugar was 167 upon their assessment. Patient is now responsive and able to interact some but not quite at his baseline according to sisters. There are no focal deficits on exam. Patient reports having a little bit of left flank pain. Patient has cognitive disability at baseline described as MR or autism by his sisters. He does walk at baseline and is generally conversational. His primary care provider is Kobi gardiner at [facility]. His decision makers would be his mother and his sister Ashley with whom he lives. Ainsley is present in the ER. Her phone number is [phone]. Allergies and Home Medications Allergies Coded Allergies: No Known Drug Allergies (Verified , 10/16/16) Patient Home Medication List Home Medication List Reviewed: Yes Atorvastatin Calcium (Lipitor) 10 Mg Tablet, 10 MG PO HS, (Reported) Entered as Reported by: BRET TORO on 10/16/16 0922 Glipizide (Glipizide) 10 Mg Tablet, 5-10 MG PO BID, (Reported) Entered as Reported by: LINUS YEE on 10/03/16 1234 Lisinopril (Prinivil) 5 Mg Tablet, 5 MG PO DAILY, (Reported) Entered as Reported by: MARY VARGAS on 01/29/12 0939 Metformin HCl (Metformin HCl) 1,000 Mg Tablet, 1,000 MG PO BID, (Reported) Entered as Reported by: BRET TORO on 10/16/16 0922 Review of Systems Review of Systems Constitutional: see HPI, diaphoresis Eyes: No Symptoms Reported Ears, Nose, Mouth, Throat: no symptoms reported Respiratory: no symptoms reported Cardiovascular: see HPI Gastrointestinal: see HPI Genitourinary: no symptoms reported Musculoskeletal: no symptoms reported Skin: see HPI Psychiatric/Neurological: See HPI Endocrine: No Symptoms Reported Hematologic/Lymphatic: No Symptoms Reported Past Ryfbjhd-Ggytfj-Cqezrg Hx Patient Social History Tobacco Use?: No Use of E-Cig and/or Vaping dev: No Substance use?: No Alcohol Use?: No Pt feels they are or have been: No Immunizations Up To Date Tetanus Booster (TDap): Unknown PED Vaccines UTD: No Second COVID19 Vaccination Gordon: 2 MO AGO 2020 PER FAM COVID19 Vaccine 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: VIRGEN Past Medical History Surgeries: Yes Appendectomy, Eye Surgery Respiratory: No Cardiac: Yes High Cholesterol, Hypertension Neurological: Yes (Cognitive deficits) Reproductive Disorders: No Genitourinary: No Gastrointestinal: Yes Gastroesophageal Reflux, Chronic Constipation Musculoskeletal: No Endocrine: Yes Diabetes, Non-Insulin dep HEENT: No Hearing Impairment: Hard of Hearing Cancer: No Psychosocial: No Integumentary: No Family Medical History No Pertinent Family Hx Physical Exam Vital Signs Vital Signs - First Documented 10/31/20 12:43 Temp 35.6 Pulse 88 Resp 22 B/P (MAP) 127/90 (102) Pulse Ox 96 O2 Delivery Room Air Capillary Refill : Height, Weight, BMI Height: 5'2.00" Weight: 150lbs. 11.6oz. 68.059156mc; 29.00 BMI Method:Stated General Appearance: WD/WN, no apparent distress HEENT: PERRL/EOMI, normal ENT inspection Neck: normal inspection Respiratory: lungs clear, normal breath sounds, no respiratory distress Cardiovascular: regular rate, rhythm, no edema, no murmur Gastrointestinal: normal bowel sounds, soft, tenderness (Mild tenderness in the left flank) Extremities: normal inspection, no pedal edema Neurologic/Psychiatric: svp marketing II-XII nml as tested, no motor/sensory deficits, alert, normal mood/affect Crainal Nerves: normal speech, hearing deficit (R) (Hard of hearing), hearing deficit (L) (Hard of hearing) Coordination/Gait: normal finger to nose Motor/Sensory: no motor deficit, no sensory deficit Skin: normal color, diaphoresis (Improving) Formal NIH stroke scale was not performed for 2 reasons. First, brief syncope of this nature with no specific focal deficits is not suggestive of stroke. Second, the language and intellectual disability barriers did not permit accurate NIH scoring. Progress/Results/Core Measures Results/Orders Lab Results Laboratory Tests Test 10/31/20 11:47 Range/Units White Blood Count 8.5 4.3-11.0 10^3/uL Red Blood Count 4.41 4.30-5.52 10^6/uL Hemoglobin 13.8 13.3-17.7 g/dL Hematocrit 41 40-54 % Mean Corpuscular Volume 93 80-99 fL Mean Corpuscular Hemoglobin 31 25-34 pg Mean Corpuscular Hemoglobin Concent 34 32-36 g/dL Red Cell Distribution Width 12.6 10.0-14.5 % Platelet Count 153 130-400 10^3/uL Mean Platelet Volume 10.6 9.0-12.2 fL Immature Granulocyte % (Auto) 1 % Neutrophils (%) (Auto) 68 42-75 % Lymphocytes (%) (Auto) 22 12-44 % Monocytes (%) (Auto) 7 0-12 % Eosinophils (%) (Auto) 2 0-10 % Basophils (%) (Auto) 1 0-10 % Neutrophils # (Auto) 5.7 1.8-7.8 10^3/uL Lymphocytes # (Auto) 1.8 1.0-4.0 10^3/uL Monocytes # (Auto) 0.6 0.0-1.0 10^3/uL Eosinophils # (Auto) 0.2 0.0-0.3 10^3/uL Basophils # (Auto) 0.1 0.0-0.1 10^3/uL Immature Granulocyte # (Auto) 0.1 0.0-0.1 10^3/uL Prothrombin Time 12.7 12.2-14.7 SEC INR Comment 0.9 0.8-1.4 Activated Partial Thromboplast Time 25 24-35 SEC D-Dimer < 0.27 0.00-0.49 UG/ML Sodium Level 133 L 135-145 MMOL/L Potassium Level 4.7 3.6-5.0 MMOL/L Chloride Level 101 98-107 MMOL/L Carbon Dioxide Level 21 21-32 MMOL/L Anion Gap 11 5-14 MMOL/L Blood Urea Nitrogen 52 H 7-18 MG/DL Creatinine 2.26 H 0.60-1.30 MG/DL Estimat Glomerular Filtration Rate 29 BUN/Creatinine Ratio 23 Glucose Level 206 H 70-105 MG/DL Calcium Level 9.8 8.5-10.1 MG/DL Corrected Calcium 9.8 8.5-10.1 MG/DL Total Bilirubin 0.7 0.1-1.0 MG/DL Aspartate Amino Transf (AST/SGOT) 19 5-34 U/L Alanine Aminotransferase (ALT/SGPT) 21 0-55 U/L Alkaline Phosphatase 60 40-136 U/L Troponin I < 0.028 <0.028 NG/ML Total Protein 7.4 6.4-8.2 GM/DL Albumin 4.0 3.2-4.5 GM/DL Influenza Type A (RT-PCR) Not Detected Not Detecte Influenza Type B (RT-PCR) Not Detected Not Detecte SARS-CoV-2 RNA (RT-PCR) Not Detected Not Detecte My Orders Orders - MARTHA SPRINGER MD Cbc With Automated Diff (10/31/20 11:59) Protime With Inr (10/31/20 11:59) Partial Thromboplastin Time (10/31/20 11:59) Comprehensive Metabolic Panel (10/31/20 11:59) Fibrin Degradation Products (10/31/20 11:59) Troponin I (10/31/20 11:59) Ua Culture If Indicated (10/31/20 11:59) Chest 1 View, Ap/Pa Only (10/31/20 11:59) Ekg Tracing (10/31/20 11:59) Nothing By Mouth (10/31/20 Lunch) Accucheck Stat ONCE (10/31/20 11:59) Ed Iv/Invasive Line Start (10/31/20 11:59) Ed Iv/Invasive Line Start (10/31/20 11:59) Vital Signs Stroke Patient Q15M (10/31/20 11:59) Ct Head Wo-R/O Stroke (10/31/20 11:59) O2 (10/31/20 11:59) Intake & Output 06,14,22 (10/31/20 11:59) Monitor-Rhythm Ecg Trace Only (10/31/20 11:59) Dysphagia Screening Tool (10/31/20 11:59) Post Thrombolytic Adminstratio (10/31/20 11:59) Lipid Panel (11/01/20 06:00) Ct Chest/Abdomen/Pelvis Wo (10/31/20 12:00) Covid 19 Inhouse Test (10/31/20 12:01) Influenza A And B By Pcr (10/31/20 12:01) Vital Signs/I&O 10/31/20 12:43 Temp 35.6 Pulse 88 Resp 22 B/P (MAP) 127/90 (102) Pulse Ox 96 O2 Delivery Room Air Blood Pressure Mean: 102 Progress Progress Note : Progress Note Patient received a liter of IV fluid as administered by EMS. Blood sugar was 167 per EMS. Cognitive function improved to baseline according to patient's sisters. CT of the head was unremarkable. Labs revealed probable acute kidney injury when compared with baseline. The exact cause of his unresponsive episode is uncertain. This may have been hypoglycemic that corrected prior to EMS arrival. Cardiac arrhythmia, vasovagal syncope, and seizure are also within the differential. CT of the chest abdomen and pelvis was also obtained as patient complained of left-sided abdominal pain. Constipation was noted. Initial ECG Impression Date: Oct 31, 2020 Initial ECG Impression Time: 12:24 Initial ECG Rate: 75 Initial ECG Rhythm: Normal Sinus Comment Sinus rhythm with no diagnostic ST elevation or depression. There were minimal ST changes but they are nearly identical to prior from 2011. No abnormal intervals or axis deviation. Departure Communication (Admissions) Time/Spoke to Admitting Phy: 13:00 Dr. Squires Impression Primary Impression: Syncope Qualified Codes: R55 - Syncope and collapse Additional Impressions: Vomiting Qualified Codes: R11.10 - Vomiting, unspecified Acute kidney injury Acute constipation Disposition: ADMITTED INPATIENT Condition: Improved Admissions Decision to Admit Reason: Admit from ER (General) Decision to Admit/Date: Oct 31, 2020 Time/Decision to Admit Time: 13:18 Departure-Patient Inst. Referrals: [facility] (PCP/Family) Primary Care Physician MARTHA SPRINGER MD Oct 31, 2020 13:22
[2020-10-31 14:13] LABS: BILIRUBIN,URINE NEGATIVE (NEGATIVE); CLARITY,URINE CLEAR; COLOR,URINE YELLOW; GLUCOSE, URINE (UA) TRACE (NEGATIVE); KETONES,URINE NEGATIVE (NEGATIVE); LEUKOCYTE ESTERASE ,URINE NEGATIVE (NEGATIVE); NITRITE,URINE NEGATIVE (NEGATIVE); PH,URINE 5.5 (5-9); PROTEIN,URINE NEGATIVE (NEGATIVE)
[2020-10-31 14:21] LABS: BACTERIA,URINE NEGATIVE /HPF
[2020-10-31] MEDS ORDERED: LORazepam INJ 2 MG/ML (ATIVAN) VIAL IV PRN (15:30)
[2020-10-31] MEDS ORDERED: ONDANSETRON 4 MG/2 ML (SDV) Z0FRAN IV PRN (15:30)
[2020-10-31 16:00] VITALS: BP 161/72
[2020-10-31] MEDS: DOCUSATE SODIUM 100 MG (COLACE) CAP PO SCH ×2 (16:07→20:47)
[2020-10-31] MEDS: NS IV 1000 ML 1,000 ML IV SCH ×2 (16:09→23:20)
[2020-10-31] MEDS ORDERED: MONT10TA32 PO (18:16)
[2020-10-31] MEDS ORDERED: CETI10TA17 PO (18:16)
[2020-10-31] MEDS ORDERED: PIOG45TA65 PO (18:16)
[2020-10-31] MEDS: inSUlin ASPART (NovoLOG) 1 UNIT/0.01 ML (CHARGE PER UNIT) SC SCH (19:29)
[2020-10-31 19:33] VITALS: BP 131/76
[2020-10-31] MEDS ORDERED: ACETAMINOPHEN 500 MG TAB (TYLENOL) PO PRN (21:00)
[2020-10-31] MEDS ORDERED: ENOXAPARIN 40 MG/0.4 ML (LOVENOX) SYR SC SCH (21:00)
[2020-10-31] MEDS ORDERED: diphenhydrAMINE 25 MG TAB (BENADRYL) PO PRN (21:00)
[2020-10-31] MEDS ORDERED: MELATONIN 3 MG TABLET PO PRN (21:00)
[2020-10-31] MEDS ORDERED: HYDROcodone/APAP 5 MG/325 MG (LORTAB) TAB PO PRN (21:00)
[2020-10-31] MEDS ORDERED: DOCUSATE SODIUM 100 MG (COLACE) CAP PO PRN (21:00)
[2020-10-31] MEDS ORDERED: ALPRAZolam 0.25 MG (XANAX) TAB PO PRN (21:00)
[2020-10-31] MEDS ORDERED: LOPERAMIDE 2 MG (IMODIUM) TABLET PO PRN (21:00)
[2020-10-31] MEDS ORDERED: CALCIUM CARBONATE 500 MG (TUMS) TAB.CHEW PO PRN (21:00)
[2020-10-31] MEDS: polyethylene glycoL POWDER 17 GM (MIRALAX) PACK PO SCH (21:35)
[2020-10-31] MEDS: SENNA W/DOCUSATE (SENOKOT S) TABLET PO SCH (21:36)
[2020-11-01] VITALS: BP 130/70
[2020-11-01 04:30] VITALS: BP 147/76
[2020-11-01] MEDS: inSUlin ASPART (NovoLOG) 1 UNIT/0.01 ML (CHARGE PER UNIT) SC SCH ×2 (05:08→12:00)
[2020-11-01 06:00] LABS: BASOPHILS % (AUTO) 1 % (0-10); EOSINOPHILS # (AUTO) 0.2 10^3/uL (0.0-0.3); EOSINOPHILS % (AUTO) 2 % (0-10); HEMATOCRIT 40 % (40-54); HEMOGLOBIN 13.2 g/dL (13.3-17.7); LYMPHOCYTES # (AUTO) 1.6 10^3/uL (1.0-4.0); LYMPHOCYTES % (AUTO) 20 % (12-44); MEAN CORPUSCULAR HEMOGLOBIN 31 pg (25-34); MEAN CORPUSCULAR HGB CONC 33 g/dL (32-36); MEAN CORPUSCULAR VOLUME 94 fL (80-99); MEAN PLATELET VOLUME 10.3 fL (9.0-12.2); MONOCYTES # (AUTO) 0.5 10^3/uL (0.0-1.0); MONOCYTES % (AUTO) 6 % (0-12); NEUTROPHILS # (AUTO) 5.9 10^3/uL (1.8-7.8); NEUTROPHILS % (AUTO) 71 % (42-75); PLATELET COUNT 135 10^3/uL (130-400); WHITE BLOOD COUNT 8.3 10^3/uL (4.3-11.0)
[2020-11-01 06:13] LABS: POTASSIUM 4.4 MMOL/L (3.6-5.0)
[2020-11-01 06:15] LABS: CALCIUM 9.4 MG/DL (8.5-10.1)
[2020-11-01 06:19] LABS: CREATININE SERUM 1.34 MG/DL (0.60-1.30)
[2020-11-01 08:00] VITALS: BP 152/76
[2020-11-01] MEDS: SENNA W/DOCUSATE (SENOKOT S) TABLET PO SCH (10:07)
[2020-11-01] MEDS: DOCUSATE SODIUM 100 MG (COLACE) CAP PO SCH (10:07)
[2020-11-01] MEDS: polyethylene glycoL POWDER 17 GM (MIRALAX) PACK PO SCH (10:07)
[2020-11-01] MEDS: NS IV 1000 ML 1,000 ML IV SCH (10:12)
[2020-11-01 11:54] VITALS: BP 148/66
--- NOTE | 2020-11-01 12:12 | Discharge Summary ---
Discharge Summary Hospital Course Was the Problem List Reviewed?: Yes Problems/Dx: (1) Syncope Status: Acute Qualifiers: Qualified Codes: R55 - Syncope and collapse (2) Acute kidney injury Status: Acute (3) Dehydration Status: Acute Hospital Course Date of Admission: Oct 31, 2020 at 13:10 Admission Diagnosis : Family Physician/Provider: [place] Date of Discharge: 11/01/20 Discharge Diagnosis: Syncope, dehydration, acute kidney injury, diabetes, hypertension, intellectual disability Hospital Course: Patient has short observation course he was admitted after syncopal episode when he was in a car waiting for a to finish. Lab work-up ensued no evidence of stroke and patient was monitored on telemetry given aggressive IV fluids which improved creatinine and patient was deemed stable for discharge. Labs and Pending Lab Test: Laboratory Tests 10/31/20 14:04: Urine Color YELLOW, Urine Clarity CLEAR, Urine pH 5.5, Urine Specific Lind 1.020, Urine Protein NEGATIVE, Urine Glucose (UA) TRACEH, Urine Ketones NEGATIVE, Urine Nitrite NEGATIVE, Urine Bilirubin NEGATIVE, Urine Urobilinogen 0.2, Urine Leukocyte Esterase NEGATIVE, Urine RBC (Auto) NEGATIVE, Urine RBC NONE, Urine WBC NONE, Urine Squamous Epithelial Cells NONE, Urine Crystals NONE, Urine Bacteria NEGATIVE, Urine Casts PRESENT, Urine Hyaline Casts 5-10H, Urine Mucus NEGATIVE, Urine Culture Indicated NO 10/31/20 18:58: Glucometer 331H 11/01/20 05:03: Glucometer 118H 11/01/20 05:49: White Blood Count 8.3, Red Blood Count 4.26L, Hemoglobin 13.2L, Hematocrit 40, Mean Corpuscular Volume 94, Mean Corpuscular Hemoglobin 31, Mean Corpuscular Hemoglobin Concent 33, Red Cell Distribution Width 12.6, Platelet Count 135, Mean Platelet Volume 10.3, Immature Granulocyte % (Auto) 0, Neutrophils (%) (Auto) 71, Lymphocytes (%) (Auto) 20, Monocytes (%) (Auto) 6, Eosinophils (%) (Auto) 2, Basophils (%) (Auto) 1, Neutrophils # (Auto) 5.9, Lymphocytes # (Auto) 1.6, Monocytes # (Auto) 0.5, Eosinophils # (Auto) 0.2, Basophils # (Auto) 0.0, Immature Granulocyte # (Auto) 0.0, Sodium Level 136, Potassium Level 4.4, Chloride Level 110H, Carbon Dioxide Level 19L, Anion Gap 7, Blood Urea Nitrogen 40H, Creatinine 1.34H, Estimat Glomerular Filtration Rate 53, BUN/Creatinine Ratio 30, Glucose Level 133H, Calcium Level 9.4, Triglycerides Level 72, Cholesterol Level 172, LDL Cholesterol Direct 130H, VLDL Cholesterol 14, HDL Cholesterol 36L 11/01/20 11:08: Glucometer 353H Home Meds Active Reported Cetirizine HCl 10 Mg Tablet 10 Mg PO DAILY Montelukast Sodium 10 Mg Tablet 10 Mg PO DAILY Pioglitazone HCl 45 Mg Tablet 45 Mg PO DAILY Metformin HCl 1,000 Mg Tablet 1,000 Mg PO BID Lipitor (Atorvastatin Calcium) 10 Mg Tablet 10 Mg PO HS Glipizide 10 Mg Tablet 5-10 Mg PO BID take 1 (10mg) tab in am take 1/2 of 5mg tab in pm Prinivil (Lisinopril) 5 Mg Tablet 5 Mg PO DAILY Assessment/Pt Instructions [facility] in 1 week Discharge Planning: <30 minutes discharge planning Discharge Instructions Discharge Diet: ADA Diet Discharge Physical Examination Vital Signs Vital Signs Date Time Temp Pulse Resp B/P (MAP) Pulse Ox O2 Delivery O2 Flow Rate FiO2 11/01/20 11:54 36.2 85 20 148/66 (93) 97 Room Air General Appearance: No Apparent Distress, WD/WN, Chronically ill, Obese Allergies: Coded Allergies: No Known Drug Allergies (Verified , 10/16/16) Discharge Summary Date of Admission Oct 31, 2020 at 13:10 Date of Discharge Discharge Date: Nov 01, 2020 Admission Diagnosis Assessment: Syncope Acute kidney injury Presumed dehydration Intellectual disability Language barrier Hypertension Hyperlipidemia Plan: Supportive care Observe Discharge Diagnosis (1) Syncope Status: Acute Qualifiers: Qualified Codes: R55 - Syncope and collapse (2) Acute kidney injury Status: Acute (3) Dehydration Status: Acute HECTOR ROBERTS DO Nov 01, 2020 12:12
== END 2020-11-01 13:56 | disposition home or self-care (01) ==
LOC: EDUNIT# 11:43 → ER 11:45 → 4TH 13:10
PROVIDERS: ADMIT Internal Medicine; ATTEND Internal Medicine
DX: R55 Syncope and collapse (principal); R11.10 Vomiting, unspecified; K59.09 Other constipation; N17.9 Acute kidney failure, unspecified; E86.0 Dehydration; F79 Unspecified intellectual disabilities; E78.00 Pure hypercholesterolemia, unspecified; I10 Essential (primary) hypertension; E11.9 Type 2 diabetes mellitus without complications; K21.9 Gastro-esophageal reflux disease without esophagitis; Z79.899 Other long term (current) drug therapy; Z79.84 Long term (current) use of oral hypoglycemic drugs
CPT/HCPCS: 36415; 70450; 71045; 71250; 74176; 80048; 80053; 80061; 81000; 82947; 84484; 85025; 85379; 85610; 85730; 87636; 93005; 93041; G0378

== ENCOUNTER 2021-03-26 19:32 | Inpatient (IN) | payer OTHER ==
[~2021-03-26] VITALS: Ht 172.7 cm; Wt 91.3 kg
[~2021-03-26 19:32] MED LIST changes: +CETI10TA17 PO; +MONT-40 PO; +PIOG45TA65 PO
[2021-03-26] MEDS ORDERED: NOREPINEPHRINE 8 MG/250 ML 250 ML IV ONE ×2 (20:05→23:23)
[2021-03-26] MEDS ORDERED: NS (IVPB) 250 ML ONE ×3 (20:24→23:54)
[2021-03-26 20:28] LABS: BASOPHILS # (AUTO) 0.1 10^3/uL (0.0-0.1); BASOPHILS % (AUTO) 1 % (0-10); EOSINOPHILS # (AUTO) 0.1 10^3/uL (0.0-0.3); EOSINOPHILS % (AUTO) 1 % (0-10); HEMATOCRIT 40 % (40-54); HEMOGLOBIN 12.3 g/dL (13.3-17.7); LYMPHOCYTES % (AUTO) 18 % (12-44); MEAN CORPUSCULAR HEMOGLOBIN 30 pg (25-34); MEAN CORPUSCULAR HGB CONC 31 g/dL (32-36); MEAN CORPUSCULAR VOLUME 99 fL (80-99); MEAN PLATELET VOLUME 11.2 fL (9.0-12.2); MONOCYTES # (AUTO) 0.3 10^3/uL (0.0-1.0); MONOCYTES % (AUTO) 2 % (0-12); NEUTROPHILS # (AUTO) 12.5 10^3/uL (1.8-7.8); NEUTROPHILS % (AUTO) 74 % (42-75); PLATELET COUNT 146 10^3/uL (130-400)
[2021-03-26] MEDS ORDERED: EPINEPHrine INJECTION 1 MG/ML AMP ONE (20:32)
[2021-03-26 20:33] LABS: BILIRUBIN,URINE NEGATIVE (NEGATIVE); CLARITY,URINE CLEAR; COLOR,URINE YELLOW; GLUCOSE, URINE (UA) 3+ (NEGATIVE); KETONES,URINE TRACE (NEGATIVE); LEUKOCYTE ESTERASE ,URINE NEGATIVE (NEGATIVE); NITRITE,URINE NEGATIVE (NEGATIVE); PH,URINE 5.5 (5-9); PROTEIN,URINE TRACE (NEGATIVE)
[2021-03-26 20:40] LABS: BACTERIA,URINE FEW /HPF; SQUAMOUS EPITHELIAL CELL,UR 0-2 /HPF; WBC,URINE 0-2 /HPF
--- NOTE | 2021-03-26 20:41 | Diagnostic Imaging Report ---
EXAMINATION: Chest 1 view. HISTORY: Post code. Central line placement. COMPARISON: 10/31/2020. FINDINGS: A right internal jugular central line is seen with the tip overlying the mid SVC. Endotracheal tube is seen overlying the trachea approximately 5 cm above the sherif. Enteric tube is seen descending below the diaphragm with the tip overlying the stomach. Widespread patchy and consolidative opacities are seen throughout the lungs. No large pleural effusion or pneumothorax. The cardiac silhouette is prominent although this is likely partially due to technique. IMPRESSION: 1. Support devices in the appropriate configuration. 2. Multifocal pneumonia. Dictated by: Dictated on workstation # [id number]
[2021-03-26 20:42] LABS: PROTHROMBIN TIME PATIENT 23.1 SEC (12.2-14.7)
[2021-03-26 20:48] LABS: LYMPHOCYTES % (MANUAL) 18 %; MONOCYTES % (MANUAL) 14 %; MYELOCYTES % 2 %; NEUTROPHILS % (MANUAL) 66 %; POLYCHROMASIA SLIGHT
--- NOTE | 2021-03-26 20:53 | ED CPR ---
HPI-CPR General Chief Complaint: Code Blue Stated Complaint: CODE BLUE Source of Information: Patient Exam Limitations: No Limitations History of Present Illness Date Seen by Provider: Mar 26, 2021 Time Seen by Provider: 19:30 Initial Comments Patient to ER from home by EMS performing CPR for arrest. Family witnessed. Ca lled EMS immediately. Police initiated CPR. 3 doses of epi were given in route. V. tach was seen on the monitor then asystole interspersed. PEA. LMA placed by EMS. He is diabetic and has hypertension on lisinopril, glimepiride and Metformin followed by oKbi Lopez at [facility]. He has been sick for the last 2 to 3 days according to his family, sister who is his caregiver who lives with him. He has a history of learning disabilities. They did a Covid swab yesterday which was negative Allergies and Home Medications Allergies Coded Allergies: No Known Drug Allergies (Verified , 10/16/16) Patient Home Medication List Home Medication List Reviewed: Yes Atorvastatin Calcium (Lipitor) 10 Mg Tablet, 10 MG PO HS, (Reported) Entered as Reported by: BRET TORO on 10/16/16 0922 Cetirizine HCl (Cetirizine HCl) 10 Mg Tablet, 10 MG PO DAILY, (Reported) Entered as Reported by: DEE BRANCH on 10/31/201815 Glipizide (Glipizide) 10 Mg Tablet, 5-10 MG PO BID, (Reported) Entered as Reported by: LINUS YEE on 10/03/16 1234 Montelukast Sodium (Montelukast Sodium) 10 Mg Tablet, 10 MG PO DAILY, (Reported) Entered as Reported by: DEE BRANCH on 10/31/201815 Pioglitazone HCl (Pioglitazone HCl) 45 Mg Tablet, 45 MG PO DAILY, (Reported) Entered as Reported by: DEE BRANCH on 10/31/201815 Review of Systems Review of Systems Constitutional: see HPI EENTM: See HPI Respiratory: See HPI Cardiovascular: See HPI Gastrointestinal: See HPI Genitourinary: See HPI All Other Systems Reviewed Negative Unless Noted: Yes Past Gyiljix-Toyffg-Zgfwbg Hx Patient Social History Tobacco Use?: No Use of E-Cig and/or Vaping dev: No Substance use?: No Alcohol Use?: No Immunizations Up To Date Tetanus Booster (TDap): Unknown PED Vaccines UTD: No First/Initial COVID19 Vaccinat: July Second COVID19 Vaccination Gordon: August Past Medical History Surgery/Hospitalization HX: None Surgeries: Yes Appendectomy, Eye Surgery Respiratory: No Cardiac: Yes High Cholesterol, Hypertension Neurological: Yes (Cognitive deficits) Reproductive Disorders: No Genitourinary: No Gastrointestinal: Yes Gastroesophageal Reflux, Chronic Constipation Musculoskeletal: No Endocrine: Yes Diabetes, Non-Insulin dep HEENT: No Hearing Impairment: Hard of Hearing Cancer: No Psychosocial: No Integumentary: No Family Medical History No Pertinent Family Hx Physical Exam Vital Signs Vital Signs - First Documented 03/26/21 21:18 Pulse 55 B/P (MAP) 75/54 Capillary Refill : Height, Weight, BMI Height: 5'2.00" Weight: 150lbs. 11.6oz. [id number]; 28.65 BMI Method:Stated General Appearance: WD/WN, Severe Distress HEENT: PERRL/EOMI, Pharynx Normal Neck: Full Range of Motion, Normal Inspection Respiratory: Other (Respiratory arrest, LMA in the mouth and high flow oxygen t hrough a bag) Cardiovascular: No Edema, Other (Cool extremities) Gastrointestinal: Normal Bowel Sounds, No Organomegaly Extremity: Slow Capillary Refill, Other (Acrocyanosis all 4 extremities) Neurologic/Psychiatric: Other (3T GCS) Skin: Cyanosis, Damp, Diaphoresis Focused Exam Lactate Level 03/26/21 02:30: Lactic Acid Level 10.74*H Lactic Acid Level Laboratory Tests Test 03/26/21 02:30 Lactic Acid Level 10.74 MMOL/L (0.50-2.00) *H Procedures/Interventions Lumen: triple Central Line Procedure: betadine prep (Chlorhexidine prep), sterile drapes applied, sterile dressing applied Position: internal jugular (R) Complications: none Post Position: sutured, good blood return, position confirmed w/ CXR Risks, benefits and alternatives were discussed with the patient and the patient consented to the procedure. The patient was positioned in the usual format and using the usual sterile garments and drapes the patient was dressed out. The skin was thoroughly cleaned with the supplied chlorhexidine prep. After the prep had dried a sterile drape was placed. The 20 cm 7 Burkinan triple-lumen catheter was flushed with sterile saline. We used ultrasound guidance to pass the introducer needle into the right internal jugular without difficulty. A guidewire was placed easily without difficulty. No ectopy was seen on the monitor. The supplied 11 blade scalpel was used to make a 2 mm incision at the inferior portion of the introducer needle. The introducer needle was replaced with the dilator. The dilator was taken out and the patient had the central lumen of the triple lumen catheter threaded over the guidewire and placed at 14 cm. The guidewire was removed and the triple-lumen catheter was stitched in place using the supplied braided stitch at 2 different points. The catheter withdrew blood and flushed easily. A sterile dressing was placed over the catheter. The patient tolerated the procedure well. A chest x-ray was obtained that demonstrated no pneumothorax and a new interval central catheter over the shadow of the right internal jugular down the superior vena cava and terminating just proximal to the right atria. Reason for Intubation: Cardiopulmonary arrest Date of ETT Placement: Mar 26, 2021 Time of ETT Placement: 20:00 Intubation Method: orotracheal Tube Size: 7.5 Positive End Tide CO2: Yes Breath Sounds after Intubation: bilateral-equal Intubation Complications: no complications Post Intubation Xray: Yes Good position Trevor vision used and placed through the fully visible vocal cords on first attempt. 7.5 ET tube at 22 at the lips. Tube clogged on expiration, bilateral breath sounds heard. No sounds auscultated over the epigastric region. Oxygen saturations improved. End-tidal CO2 in the 50s. Progress/Results/Core Measures Results/Orders Lab Results Laboratory Tests Test 03/26/21 02:30 03/26/21 20:20 03/26/21 20:25 03/26/21 20:35 Range/Units Lactic Acid Level 10.74 *H 0.50-2.00 MMOL/L White Blood Count 17.0 H 4.3-11.0 10^3/uL Red Blood Count 4.07 L 4.30-5.52 10^6/uL Hemoglobin 12.3 L 13.3-17.7 g/dL Hematocrit 40 40-54 % Mean Corpuscular Volume 99 80-99 fL Mean Corpuscular Hemoglobin 30 25-34 pg Mean Corpuscular Hemoglobin Concent 31 L 32-36 g/dL Red Cell Distribution Width 14.0 10.0-14.5 % Platelet Count 146 130-400 10^3/uL Mean Platelet Volume 11.2 9.0-12.2 fL Immature Granulocyte % (Auto) 6 % Neutrophils (%) (Auto) 74 42-75 % Lymphocytes (%) (Auto) 18 12-44 % Monocytes (%) (Auto) 2 0-12 % Eosinophils (%) (Auto) 1 0-10 % Basophils (%) (Auto) 1 0-10 % Neutrophils # (Auto) 12.5 H 1.8-7.8 10^3/uL Lymphocytes # (Auto) 3.0 1.0-4.0 10^3/uL Monocytes # (Auto) 0.3 0.0-1.0 10^3/uL Eosinophils # (Auto) 0.1 0.0-0.3 10^3/uL Basophils # (Auto) 0.1 0.0-0.1 10^3/uL Immature Granulocyte # (Auto) 1.0 H 0.0-0.1 10^3/uL Neutrophils % (Manual) 66 % Lymphocytes % (Manual) 18 % Monocytes % (Manual) 14 % Myelocytes % 2 % Polychromasia SLIGHT Blood Morphology Comment NA Prothrombin Time 23.1 H 12.2-14.7 SEC INR Comment 2.0 H 0.8-1.4 Activated Partial Thromboplast Time 77 H 24-35 SEC D-Dimer > 20.00 H 0.00-0.49 UG/ML Sodium Level 138 135-145 MMOL/L Potassium Level 4.7 3.6-5.0 MMOL/L Chloride Level 102 98-107 MMOL/L Carbon Dioxide Level 5 *L 21-32 MMOL/L Anion Gap 31 H 5-14 MMOL/L Blood Urea Nitrogen 80 H 7-18 MG/DL Creatinine 2.92 H 0.60-1.30 MG/DL Estimat Glomerular Filtration Rate 23 BUN/Creatinine Ratio 27 Glucose Level 759 *H 70-105 MG/DL Calcium Level 10.0 8.5-10.1 MG/DL Corrected Calcium 11.2 H 8.5-10.1 MG/DL Phosphorus Level 11.4 H 2.3-4.7 MG/DL Magnesium Level 3.3 H 1.6-2.4 MG/DL Total Bilirubin 1.3 H 0.1-1.0 MG/DL Aspartate Amino Transf (AST/SGOT) 789 H 5-34 U/L Alanine Aminotransferase (ALT/SGPT) 371 H 0-55 U/L Alkaline Phosphatase 148 H 40-136 U/L Troponin I 0.211 H <0.028 NG/ML C-Reactive Protein High Sensitivity 33.92 H 0.00-0.50 MG/DL Total Protein 6.4 6.4-8.2 GM/DL Albumin 2.5 L 3.2-4.5 GM/DL Procalcitonin 4.00 H <0.10 NG/ML Urine Color YELLOW Urine Clarity CLEAR Urine pH 5.5 5-9 Urine Specific [place] 1.020 1.016-1.022 Urine Protein TRACE H NEGATIVE Urine Glucose (UA) 3+ H NEGATIVE Urine Ketones TRACE H NEGATIVE Urine Nitrite NEGATIVE NEGATIVE Urine Bilirubin NEGATIVE NEGATIVE Urine Urobilinogen 1.0 < = 1.0 MG/DL Urine Leukocyte Esterase NEGATIVE NEGATIVE Urine RBC (Auto) TRACE-I H NEGATIVE Urine RBC NONE /HPF Urine WBC 0-2 /HPF Urine Squamous Epithelial Cells 0-2 /HPF Urine Renal Epithelial Cells NONE /HPF Urine Crystals NONE /LPF Urine Bacteria FEW H /HPF Urine Casts NONE /LPF Urine Mucus NEGATIVE /LPF Urine Culture Indicated CULTURE PENDING Influenza Type A Antigen NEGATIVE NEGATIVE Influenza Type B Antigen NEGATIVE NEGATIVE SARS-CoV-2 RNA (RT-PCR) Detected H Not Detecte Test 03/26/21 20:56 03/26/21 21:21 Range/Units Blood Gas Puncture Site R RAD Blood Gas Patient Temperature 35.6 Arterial Blood pH 6.88 *L 7.37-7.43 Arterial Blood Partial Pressure CO2 46 H 35-45 MMHG Arterial Blood Partial Pressure O2 82 79-93 MMHG Arterial Blood HCO3 9 *L 23-27 MMOL/L Arterial Blood Total CO2 10.0 L 21.0-31.0 MMOL/L Arterial Blood Oxygen Saturation 81 L 94-100 % Arterial Blood Base Excess -22.1 L -2.5-2.5 MMOL/L Norm Test YES-POS Blood Gas Ventilator Setting YES Blood Gas Inspired Oxygen 100% Glucometer 590 *H 70-110 MG/DL My Orders Orders - TOMASZ RENE Norepinephrine 8 Mg/250 Ml (Norepinephri (03/26/21 20:05) Cbc With Automated Diff (03/26/21 20:19) Comprehensive Metabolic Panel (03/26/21 20:19) Blood Culture (03/26/21 20:19) Sputum Culture (03/26/21 20:19) Urinalysis (03/26/21 20:19) Urine Culture (03/26/21 20:19) Protime With Inr (03/26/21 20:19) Partial Thromboplastin Time (03/26/21 20:19) Chest 1 View, Ap/Pa Only (03/26/21 20:19) Ed Iv/Invasive Line Start (03/26/21 20:19) Ed Iv/Invasive Line Start (03/26/21 20:19) Troponin I Sherron (03/26/21 20:19) Vital Signs Adult Sepsis Patie Q15M (03/26/21 20:19) O2 (03/26/21 20:19) Remove Rings In Anticipation O (03/26/21 20:19) Lactic Acid Analyzer (03/26/21 20:19) Ns (Ivpb) (Sodium Chloride 0.9%) (03/26/21 20:24) Manual Differential (03/26/21 20:20) Epinephrine 1 Mg Injection (Adrenalin I (03/26/21 20:32) Ed Iv/Invasive Line Start (03/26/21 20:54) Ns Iv 1000 Ml (Sodium Chloride 0.9%) (03/26/21 21:00) Piperacillin Sodium/Tazobactam (Zosyn Vi (03/26/21 21:00) Vancomycin Injection (Vancomycin Injecti (03/26/21 21:00) Arterial Blood Gas (03/26/21 20:57) Covid 19 Inhouse Test (03/26/21 20:58) Influenza A & B Antigens (03/26/21 20:35) Accucheck Stat ONCE (03/26/21 21:10) Vasopressin Injection (Pitressin Injecti (03/26/21 21:15) Sodium Bicarbonate 8.4% Syr (Sodium Bica (03/26/21 21:10) 1/2 Ns Iv Solution (0.45% Sodium Chlorid (03/26/21 21:10) 1/2 Ns Iv Solution... W/Sodium Bicarbona (03/26/21 21:15) Ekg Tracing (03/26/21 21:14) Sodium Bicarbonate 8.4% Syr (Sodium Bica (03/26/21 21:15) Ekg Tracing (03/26/21 21:26) Medications Given in ED Current Medications Medications Dose Ordered Sig/Elham Route Start Time Stop Time Status Last Admin Dose Admin Epinephrine HCl 1 mg STK-MED ONCE .ROUTE 03/26/21 20:32 03/26/21 20:35 DC 03/26/21 21:19 1 MG Norepinephrine Bitartrate 250 ml @ ud STK-MED ONCE IV 03/26/21 20:05 03/26/21 20:09 DC 03/26/21 21:18 0 MLS/HR Piperacillin Sod/ Tazobactam Sod 4.5 gm/Sodium Chloride 100 ml @ 200 mls/hr ONCE ONCE IV 03/26/21 21:00 03/26/21 21:29 DC 03/26/21 21:15 200 MLS/HR Sodium Bicarbonate 50 meq STK-MED ONCE .ROUTE 03/26/21 21:10 03/26/21 21:11 DC 03/26/21 21:20 50 MEQ Sodium Bicarbonate 50 meq STK-MED ONCE .ROUTE 03/26/21 21:15 03/26/21 21:18 DC 03/26/21 21:21 50 MEQ Sodium Chloride 250 ml @ ud STK-MED ONCE .ROUTE 03/26/21 20:24 03/26/21 20:27 DC 03/26/21 21:19 0 MLS/HR Sodium Chloride 1,000 ml @ ud STK-MED ONCE IV 03/26/21 21:10 03/26/21 21:11 DC 03/26/21 21:17 0 MLS/HR Vital Signs/I&O 03/26/21 21:18 Pulse 55 B/P (MAP) 75/54 Progress Progress Note : Time: 20:52 Progress Note Patient is marginally stabilized, critically ill on 0.1 mcg/kg/min based on a estimated weight of 75 kg of epinephrine. He is also on 0.2 mics per kilo per minute of norepinephrine. Give him some fluids. His chest x-ray looks like yards. He had a negative Covid swab yesterday. Initial ECG Impression Date: Mar 26, 2021 Initial ECG Impression Time: 19:42 Initial ECG Rate: 113 Initial ECG Rhythm: S.Tach Comment Patient has sinus tachycardia with PVCs and right branch block and possible ST elevation in aVR EKG : EKG Time: 21:19 Rate: 82 Rhythm: Normal Sinus Intervals: Normal ECG Comparisson: Changed ECG Impression: Nonspecific Changes Comment Little less artifact patient does still have a little 1/2-1 block of elevation in aVR and anterior lateral leads V3 and V4 as seen on previous EKG uncertain clinical significance. Does not meet criteria for STEMI Diagnostic Imaging Diagonstic Imaging: Xray Plain Films/CT/US/NM/MRI: chest Comments [facility], [place] NAME: [facility] REC#: [id number] PT STATUS: REG ER : 1955 PHYSICIAN: TOMASZ RENE MD ADMIT DATE: 03/26/21/ER Signed Date of Exam:03/26/21 CHEST 1 VIEW, AP/PA ONLY EXAMINATION: Chest 1 view. HISTORY: Post code. Central line placement. COMPARISON: 10/31/2020. FINDINGS: A right internal jugular central line is seen with the tip overlying the mid SVC. Endotracheal tube is seen overlying the trachea approximately 5 cm above the sherif. Enteric tube is seen descending below the diaphragm with the tip overlying the stomach. Widespread patchy and consolidative opacities are seen throughout the lungs. No large pleural effusion or pneumothorax. The cardiac silhouette is prominent although this is likely partially due to technique. IMPRESSION: 1. Support devices in the appropriate configuration. 2. Multifocal pneumonia. Dictated by: Dictated on workstation # [id number] Dict: 03/26/212037 Trans: 03/26/212045 [facility] [id number] Interpreted by: MUKUND FOSTER DO Electronically signed by: MUKUND FOSTER DO 03/26/212045 Reviewed: Reviewed by Me Critical Care Note Critical Care Start Time: 19:30 Stop Time: 20:45 Total Time (minutes) 75-minute Progress I attest to 75 minutes of critical care time outside of procedures for CPR, management of pressors, antibiotics, taking a history from the family and managing their expectations. Also coordinated with eICU and admitting team. Departure Communication (Admissions) Time/Spoke to Admitting Phy: 21:[address] Squires and she agrees with ICU placement, eICU consult. Time/Spoke to Consulting Phy: 22:00 Discussed the case with Dr. Metz at eICU and he agrees to consult on the case. Impression Primary Impression: Cardiopulmonary arrest Additional Impressions: MSOF (multiple systems organ failure) COVID-19 Acute respiratory failure Qualified Codes: J96.01 - Acute respiratory failure with hypoxia; J96.02 - Acute respiratory failure with hypercapnia Liver injury Qualified Codes: S36.119A - Unspecified injury of liver, initial encounter Acute kidney injury (nontraumatic) Hyperglycemia Disposition: ADMITTED INPATIENT Condition: Critical Admissions Decision to Admit Reason: Admit from ER (General) Decision to Admit/Date: Mar 26, 2021 Time/Decision to Admit Time: 22:00 Departure-Patient Inst. Referrals: [facility] [place] Primary Care Physician TOMASZ RENE Mar 26, 2021 20:53
[2021-03-26 20:57] LABS: ALBUMIN 2.5 GM/DL (3.2-4.5); BILIRUBIN,TOTAL 1.3 MG/DL (0.1-1.0); CREATININE SERUM 2.92 MG/DL (0.60-1.30); POTASSIUM 4.7 MMOL/L (3.6-5.0); TOTAL PROTEIN 6.4 GM/DL (6.4-8.2)
[2021-03-26] MEDS ORDERED: NS IV 1000 ML 1,000 ML IV SCH (21:00)
[2021-03-26] MEDS ORDERED: PIPERACILLIN SODIUM/TAZOBACTAM 4.5 GM in NS (IVPB) 100 ML IV ONE (21:00)
[2021-03-26 21:04] LABS: ABG BASE EXCESS -22.1 MMOL/L (-2.5-2.5); ABG OXYGEN SATURATION 81 % (94-100); ABG PCO2 46 MMHG (35-45); ABG PO2 82 MMHG (79-93)
[2021-03-26 21:05] LABS: ALLENS TEST YES-POS; INSPIRED O2 100%; PATIENT TEMP 35.6; VENTILATOR YES
[2021-03-26 21:06] LABS: ABG PH 6.88 (7.37-7.43)
[2021-03-26] MEDS: VANCOMYCIN INJECTION 750 MG in NS (IVPB) 250 ML IV SCH ×2 (21:06→22:00)
[2021-03-26] MEDS ORDERED: 1/2 NS IV SOLUTION 1,000 ML IV ONE (21:10)
[2021-03-26] MEDS ORDERED: SODIUM BICARB 8.4% 50 MEQ/50 ML (ABBOTT) SYR ONE ×2 (21:10→21:15)
[2021-03-26] MEDS: SODIUM BICARBONATE 8.4% VIAL 150 MEQ in 1/2 NS IV SOLUTION 1,000 ML IV SCH (21:17)
[2021-03-26] MEDS ORDERED: PROPOFOL DRIP (ICU) 100 ML IV ONE (21:32)
--- NOTE | 2021-03-26 22:14 | Tele-ICU Consult ---
History of Present Illness History of Present Illness Date Seen by Provider: Mar 26, 2021 Time Seen by Provider: 22:08 History of Present Illness Hx of Dr Millard in ED 66 yo M known to have Developmental delay, NIDDM, HTN, arrested at home witnessed by family, CPR begun by police about 2 min later CPR begun in ED about 15 min later, intubated, Now on 3 pressors, epi, levo, vaso, severly acidotic with pH < 7 on IV NaHCO3 Started on IV hypothermia with body temp 95, LFT's are elevated in hundreds, CXR showing ARDS picture with enlarged heart Also started on IV insulin for glu 759, INR 2, Cr elevated at 2.92, BUN 80, received one dose on IV Vanco and IV Zosyn Pt had a home test for COVID which was negative but in ED is positive, Flu in negative Family want aggressive care unless codes again in which case they do not want CPR Pt is not posturing, seizing or having myoclonus. Allergies and Home Medications Allergies Coded Allergies: No Known Drug Allergies (Verified , 10/16/16) Home Medications Atorvastatin Calcium 10 Mg Tablet, 10 MG PO HS, (Reported) Cetirizine HCl 10 Mg Tablet, 10 MG PO DAILY, (Reported) Glipizide 10 Mg Tablet, 5-10 MG PO BID, (Reported) take 1 (10mg) tab in am take 1/2 of 5mg tab in pm Montelukast Sodium 10 Mg Tablet, 10 MG PO DAILY, (Reported) Pioglitazone HCl 45 Mg Tablet, 45 MG PO DAILY, (Reported) Past Medical/Social/Family Hx Immunizations Up To Date First/Initial COVID19 Vaccinat: July Second COVID19 Vaccination Gordon: August Tetanus Booster (TDap): Unknown TB Skin Test: None Date of Pneumonia Vaccine: May 27, 2012 Current Status Primary Language: [employer] Review of Systems Constitutional: see HPI Focused Exam Lactate Level 03/26/21 21:39: Height, Weight, BMI Height: 5'2.00" Weight: 150lbs. 11.6oz. 68.278234ex; 28.65 BMI Method:Stated Lactic Acid Level Laboratory Tests Test 03/26/21 21:39 Exam Exam Patient acknowledged, consented, and participated in this virtual visit which was conducted using real time audio/video Vital Signs Date Time Temp Pulse Resp B/P (MAP) Pulse Ox O2 Delivery O2 Flow Rate FiO2 03/26/21 21:46 85 126/78 03/26/21 21:18 55 75/54 Height & Weight Height: 5'2.00" Weight: 150lbs. 11.6oz. 68.331199yk; 28.65 BMI Method:Stated General Appearance: Other (unresponsive) Respiratory: Rhonci Cardiovascular: Regular Rate, Rhythm Neurologic/Psychiatric: Other (unresponsive, pupils do react, no clonus) Results Lab Laboratory Tests 03/26/21 20:20 Assessment/Plan Assessment/Plan Critically ill with poor prognosis, probably anoxic brain injury , continue on hypothermia, vent, pressors, abx, recheck ABG, continue insulin drip Made DNR by family Critical Care: Ventilator Management Time spent with patient (mins): 35 KALEB COOL MD Mar 26, 2021 22:13
[2021-03-26] MEDS ORDERED: inSUlin (REGULAR) HUMAN 1 UNIT/0.01 ML (CHARGE PER UNIT) SC ONE (22:15)
[2021-03-26] MEDS ORDERED: EPINEPHrine (OMNICELL DRIP KIT ONLY) 1 MG/ML AMP ONE ×2 (22:16→23:53)
[2021-03-26 22:35] LABS: MAGNESIUM 3.3 MG/DL (1.6-2.4); PHOSPHORUS 11.4 MG/DL (2.3-4.7)
[2021-03-26 23:25] VITALS: BP 140/109
[2021-03-26 23:35] VITALS: BP 75/54
[2021-03-27] VITALS (7 sets, daily range): BP systolic 121–163; BP diastolic 58–110
[2021-03-27 00:24] LABS: ABG BASE EXCESS -16.4 MMOL/L (-2.5-2.5); ABG OXYGEN SATURATION 90 % (94-100); ABG PCO2 46 MMHG (35-45); ABG PO2 90 MMHG (79-93); ABG TCO2 13.4 MMOL/L (21.0-31.0)
[2021-03-27 00:25] LABS: ALLENS TEST YES-POS; INSPIRED O2 100%; VENTILATOR YES
[2021-03-27 00:32] LABS: ABG PH 7.05 (7.37-7.43); PATIENT TEMP 35.2
[2021-03-27] MEDS ORDERED: EPINEPHrine 1 MG INJECTION 8 MG in NS (IVPB) 242 ML IV SCH (01:15)
[2021-03-27] MEDS: PROPOFOL DRIP (ICU) 100 ML IV SCH ×3 (02:42→22:08)
[2021-03-27] MEDS: NOREPINEPHRINE 8 MG/250 ML 250 ML IV SCH ×6 (02:42→20:08)
[2021-03-27] MEDS: EPINEPHrine 1 MG INJECTION 4 MG in NS (IVPB) 248 ML IV SCH ×2 (02:43→08:11)
[2021-03-27 02:49] LABS: BASOPHILS # (AUTO) 0.1 10^3/uL (0.0-0.1); BASOPHILS % (AUTO) 1 % (0-10); EOSINOPHILS % (AUTO) 0 % (0-10); HEMATOCRIT 39 % (40-54); HEMOGLOBIN 12.5 g/dL (13.3-17.7); LYMPHOCYTES # (AUTO) 0.8 10^3/uL (1.0-4.0); LYMPHOCYTES % (AUTO) 4 % (12-44); MEAN CORPUSCULAR HEMOGLOBIN 30 pg (25-34); MEAN CORPUSCULAR HGB CONC 32 g/dL (32-36); MEAN CORPUSCULAR VOLUME 95 fL (80-99); MONOCYTES # (AUTO) 0.5 10^3/uL (0.0-1.0); MONOCYTES % (AUTO) 3 % (0-12); NEUTROPHILS # (AUTO) 16.6 10^3/uL (1.8-7.8); NEUTROPHILS % (AUTO) 91 % (42-75); PLATELET COUNT 207 10^3/uL (130-400); WHITE BLOOD COUNT 18.2 10^3/uL (4.3-11.0)
[2021-03-27 03:02] LABS: ALBUMIN 2.6 GM/DL (3.2-4.5)
[2021-03-27 03:03] LABS: POTASSIUM 4.3 MMOL/L (3.6-5.0)
[2021-03-27 03:04] LABS: CALCIUM 8.3 MG/DL (8.5-10.1)
[2021-03-27 03:05] LABS: TOTAL PROTEIN 6.4 GM/DL (6.4-8.2)
[2021-03-27 03:07] LABS: BILIRUBIN,TOTAL 3.9 MG/DL (0.1-1.0)
[2021-03-27 03:08] LABS: PHOSPHORUS 7.9 MG/DL (2.3-4.7)
[2021-03-27 03:09] LABS: CREATININE SERUM 2.93 MG/DL (0.60-1.30)
[2021-03-27 03:12] LABS: MAGNESIUM 2.7 MG/DL (1.6-2.4)
[2021-03-27] MEDS ORDERED: inSUlin (REGULAR) HUMAN 1 UNIT/0.01 ML (CHARGE PER UNIT) IV ONE (03:45)
[2021-03-27] MEDS: PIPERACILLIN SODIUM/TAZOBACTAM 4.5 GM in NS (IVPB) 100 ML IV SCH ×3 (03:55→18:48)
[2021-03-27] MEDS ORDERED: 1/2 NS IV SOLUTION 1,000 ML IV ONE (04:13)
[2021-03-27] MEDS ORDERED: SODIUM BICARB 8.4% 50 MEQ/50 ML (ABBOTT) SYR ONE ×2 (04:13→04:14)
[2021-03-27] MEDS: SODIUM BICARBONATE 8.4% VIAL 150 MEQ in 1/2 NS IV SOLUTION 1,000 ML IV SCH ×4 (04:43→20:04)
[2021-03-27] MEDS: VASOPRESSIN INJECTION 20 UNIT in NS (IVPB) 100 ML IV SCH ×3 (04:56)
--- NOTE | 2021-03-27 05:40 | Progress Note ---
Standard Progress Note Progress Notes/Assess & Plan Date Seen by a Provider: Mar 27, 2021 Time Seen by a Provider: 05:39 Progress/Assessment & Plan glu still out of control at 588, will go up to 25 U/h reg insulin IV Grant Cool MD Focused Exam Lactate Level 03/26/21 02:30: Lactic Acid Level 10.74*H 03/26/21 21:39: Lactic Acid Level 13.79*H 03/27/21 04:55: Lactic Acid Level 12.07*H Lactic Acid Level Laboratory Tests Test 03/27/21 04:55 Lactic Acid Level 12.07 MMOL/L (0.50-2.00) *H KALEB COOL MD Mar 27, 2021 05:40
--- NOTE | 2021-03-27 06:43 | History & Physical-Hospitalist ---
History of Present Illness HPI/Chief Complaint CC: Multi-system organ failure s/o cardiac arrest in ER s/p epinephrine HPI: This is a 66yoHM who presented to the ER in respiratory failure and elevated sugar and COVID-19 PNA. Patient had a cardiac arrest in the ER and ER obtained ROSC. Anoxia brain injury suspected since he has been off sedation and no spontaneous movement. Severely elevated sugars noted requiring insulin drip. Patient appears to be mottling and requiring 3 pressors to maintain MAP 60. I did speak to sister and she told me the family wants us to "wait 3 days to see if he comes out of it" and I explained that although he is DNR he appears to be mottling and likely will not survive another 3 days. We decided to maintain care as is. Source: RN/MD, old records Exam Limitations: clinical condition (intubated) Date Seen 03/27/21 Time Seen by a Provider: 12:00 Attending Physician Christy Squires DO [facility] Referring Physician Date of Admission Mar 26, 2021 at 21:30 Home Medications & Allergies Home Medications Reviewed patient Home Medication Reconciliation performed by pharmacy medication reconciliations satellite tv technician installer and/or nursing. Patients Allergies have been reviewed. Allergies Allergies Coded Allergies No Known Drug Allergies (Verified10/16/16) Past Lihqpuh-Beepvy-Mdpczz Hx Patient Social History Tobacco Use?: No Smoking Status: Unknown if Ever Smoked Use of E-Cig and/or Vaping dev: No Substance use?: No Alcohol Use?: No Immunizations Up To Date First/Initial COVID19 Vaccinat: Marychuy Second COVID19 Vaccination Gordon: August Tetanus Booster (TDap): Unknown PED Vaccines UTD: No Date of Pneumonia Vaccine: May 27, 2012 Current Status Primary Language: Pug [employer] Past Medical History Surgeries: Appendectomy, Eye Surgery High Cholesterol, Hypertension Gastroesophageal Reflux, Chronic Constipation Diabetes, Non-Insulin dep Hearing Impairment: Hard of Hearing Family Medical History No Pertinent Family Hx Review of Systems ROS-Unable to Obtain: intubated Constitutional: see HPI Physical Exam Physical Exam Vital Signs Vital Signs - First Documented 03/26/21 03/26/21 03/26/21 19:32 20:04 23:30 Temp 34.3 Pulse 65 Resp 18 B/P (MAP) 107/77 Pulse Ox 70 O2 Delivery Ambu Bag O2 Flow Rate 100.00 FiO2 100 Capillary Refill : Height, Weight, BMI Height: 5'2.00" Weight: 150lbs. 11.6oz. 68.728387gd; 28.65 BMI Method:Stated General Appearance: Chronically ill, Other (intubated, unresponsive) Respiratory: Lungs Clear, Normal Breath Sounds Cardiovascular: Regular Rate, Rhythm Results Results/Procedures Labs Laboratory Tests 03/26/21 20:20 03/27/21 02:30 Patient resulted labs reviewed. Assessment/Plan Admission Diagnosis Assessment: Multi-system organ failure Vent dependence COVID 19 s/p cardiac arrest s/p epinephrine with ROSC DM with acute DKA on inulin drip CHRISSY Plan: DNR Poor prognosis Admission Status: Inpatient Order (span 2 midnights) Reason for Inpatient Admission: resp failure Diagnosis/Problems Diagnosis/Problems (1) COVID-19 Status: Acute (2) MSOF (multiple systems organ failure) Status: Acute (3) Acute kidney injury (nontraumatic) Status: Acute (4) Cardiopulmonary arrest Status: Acute (5) Acute respiratory failure Status: Acute Qualifiers: Respiratory failure complication: hypoxia and hypercapnia Qualified Codes: J96.01 - Acute respiratory failure with hypoxia; J96.02 - Acute respiratory failure with hypercapnia (6) Acute kidney injury Status: Acute CHRISTY SQUIRES DO Mar 27, 2021 06:42
[2021-03-27 06:56] LABS: ABG BASE EXCESS -10.6 MMOL/L (-2.5-2.5); ABG OXYGEN SATURATION 63 % (94-100); ABG PCO2 59 MMHG (35-45); ABG PO2 84 MMHG (79-93); ABG TCO2 18.7 MMOL/L (21.0-31.0); ALLENS TEST YES-POS; INSPIRED O2 100%
[2021-03-27 06:57] LABS: PATIENT TEMP 37.8; VENTILATOR YES
[2021-03-27] MEDS ORDERED: VASOPRESSIN INJECTION 20 UNIT in NS (IVPB) 100 ML IV SCH (07:45)
[2021-03-27] MEDS ORDERED: RT-ALBUTEROL HFA 8.5 GM INHALER IH PRN (08:15)
[2021-03-27] MEDS ORDERED: NS (IVPB) 100 ML ONE (09:19)
--- NOTE | 2021-03-27 09:53 | Tele-ICU Progress Note ---
Subjective Date Seen by a Provider: Mar 27, 2021 Time Seen by a Provider: 07:50 Subjective/Events-last exam This virtual visit was conducted using real time audio/video. Thank you for asking us to see this patient for respiratory insufficiency due to Covid pna with OOH arrest. Recent events: low grade temp., low UO. PE: sedated on vent. VSS HEENT: No obvious masses, adenopathy or JVD. Chest: clear to auscultation. CV: RRR S1 S2 No murmur or added sounds. Abd: Non-tender. Bowel sounds Y. : Unremarkable. Elizondo Y. [employer] ENGLISH [employer]CTOR/psychiatric: Grossly intact. No obvious focal findings. Extremities: trace edema. Capillary refill < 3 seconds. Skin: unremarkable. Results: Elevated WCC 18.2, BUN 79, Creat 2.93, BG 445. Decreased Hb 12.5. BG: &.. CXR: B infilts.. Available chart/ vitals / labs / images reviewed. Video assessment done using teleICU camera, rest of exam as per RN. A/P: Respiratory insufficiency: Continue present management with alb., vent. Increase TV to 500, RR to 25 Critical Care: critically ill patient. Cont. 3c pressors, insulin drip, vanco, Zosyn. Discussed with GI Bradley. Asked RN to reach out to eICU if any questions or concerns later. Time spent with patient/coordination of care with other health professionals (mins): 25 Review of Systems General: Other HEENT: Other Pulmonary: Other Cardiovascular: Other Gastrointestinal: Other Genitourinary: Other Neurological: Other See free text Sepsis Event Evaluation Height, Weight, BMI Height: 5'2.00" Weight: 150lbs. 11.6oz. 68.140386qd; 26.72 BMI Method:Stated Focused Exam Lactate Level 03/27/21 04:55: Lactic Acid Level 12.07*H 03/27/21 06:22: Lactic Acid Level 6.59*H 03/27/21 08:25: Lactic Acid Level 6.30*H Lactic Acid Level Laboratory Tests Test 03/27/21 06:22 03/27/21 08:25 Lactic Acid Level 6.59 MMOL/L (0.50-2.00) *H 6.30 MMOL/L (0.50-2.00) *H Exam Exam Patient acknowledged, consented, and participated in this virtual visit which was conducted using real time audio/video Vital Signs Date Time Temp Pulse Resp B/P (MAP) Pulse Ox O2 Delivery O2 Flow Rate FiO2 03/27/21 09:00 37.1 98 23 145/66 95 Mechanical Ventilator 100.00 03/27/21 08:12 101 96 90 03/27/21 08:10 107 164/92 03/27/21 08:00 96 Mechanical Ventilator 100 03/27/21 08:00 37.3 03/27/21 08:00 37.3 110 32 164/92 Mechanical Ventilator 100.00 03/27/21 07:17 101 29 96 90 03/27/21 07:00 37.6 109 29 166/78 92 Mechanical Ventilator 100.00 03/27/21 07:00 102 03/27/21 06:00 37.9 112 22 146/67 92 Mechanical Ventilator 100.00 03/27/21 05:00 37.9 116 21 136/68 91 Mechanical Ventilator 100.00 03/27/21 04:56 110 156/91 03/27/21 04:00 96 Mechanical Ventilator 100 03/27/21 04:00 37.6 112 19 153/88 93 Mechanical Ventilator 100.00 03/27/21 03:56 114 140/67 03/27/21 03:00 37.2 110 21 132/74 91 Mechanical Ventilator 100.00 03/27/21 02:48 112 24 85 100 03/27/21 02:42 111 137/75 03/27/21 02:42 111 137/75 03/27/21 02:00 36.6 107 21 142/79 93 Mechanical Ventilator 100.00 03/27/21 01:00 35.8 99 19 137/79 95 Mechanical Ventilator 100.00 03/27/21 01:00 99 03/27/21 00:30 35.4 96 17 142/81 93 Mechanical Ventilator 100.00 03/27/21 00:15 35.3 89 19 156/88 95 Mechanical Ventilator 100.00 03/27/21 00:00 94 Mechanical Ventilator 100 03/27/21 00:00 111 137/75 03/27/21 00:00 35.2 83 17 112/71 93 Mechanical Ventilator 100.00 03/26/21 23:45 35.0 91 18 121/64 94 Mechanical Ventilator 100.00 03/26/21 23:35 55 100 03/26/21 23:30 34.9 89 19 152/76 92 Mechanical Ventilator 100.00 03/26/21 23:25 92 24 89 100 03/26/21 22:24 89 03/26/21 21:46 85 126/78 03/26/21 21:18 55 75/54 I & O 03/27/21 07:00 Intake Total 2201 ml Output Total 150 ml Balance 2051 ml Height & Weight Height: 5'2.00" Weight: 150lbs. 11.6oz. 68.317167dv; 26.72 BMI Method:Stated General Appearance: WD/WN, Severe Distress HEENT: PERRL/EOMI, Pharynx Normal Neck: Full Range of Motion, Normal Inspection Respiratory: Other (Respiratory arrest, LMA in the mouth and high flow oxygen through a bag) Cardiovascular: No Edema, Other (Cool extremities) Extremity: Slow Capillary Refill, Other (Acrocyanosis all 4 extremities) Neurologic/Psychiatric: Other (3T GCS) Skin: Cyanosis, Damp, Diaphoresis Results Lab Laboratory Tests 03/26/21 20:20 03/27/21 02:30 Assessment/Plan Assessment/Plan See free text. Critical Care: Ventilator Management JOHANA LOPEZ MD Mar 27, 2021 09:53
[2021-03-27] MEDS: RT-ALBUTEROL HFA 8.5 GM INHALER IH SCH ×4 (11:08→21:34)
[2021-03-27] MEDS ORDERED: MIDAZOLAM 5 MG/5 ML (VERSED) VIAL IJ ONE (13:19)
[2021-03-27] MEDS ORDERED: NS (IVPB) 250 ML IV ONE (13:19)
[2021-03-27] MEDS ORDERED: CATHETER FLUSH 10 ML SYR IV ONE (13:19)
[2021-03-27] MEDS ORDERED: CALCIUM CHLORIDE 1 GM/10 ML (IMS) SYR INJ ONE (13:19)
[2021-03-27] MEDS ORDERED: AMIODARONE (BOLUS) 150 MG/3 ML IV ONE (13:19)
[2021-03-27] MEDS ORDERED: EPINEPHrine 0.1 MG/ML 10 ML (HOSPIRA) SYR IJ ONE (13:19)
[2021-03-27] MEDS ORDERED: fentaNYL INJ 100 MCG/2 ML AMP IV ONE (13:19)
[2021-03-27] MEDS ORDERED: SODIUM BICARB 8.4% 50 MEQ/50 ML (ABBOTT) SYR INJ ONE (13:19)
[2021-03-27] MEDS: VANCOMYCIN 1 GM/NS 250 ML IVPB IV SCH ×2 (20:03)
[2021-03-27] MEDS ORDERED: DEXTROSE 50% 50 ML (IMS) SYR ONE ×3 (20:38→22:55)
[2021-03-27 21:09] LABS: POTASSIUM 3.5 MMOL/L (3.6-5.0)
[2021-03-27] MEDS ORDERED: D5 1/2 NS 1000 ML IV SOLUTION 1,000 ML IV ONE (22:33)
[2021-03-27] MEDS: D5 1/2 NS 1000 ML IV SOLUTION 1,000 ML IV SCH (22:53)
[2021-03-28] MEDS: NOREPINEPHRINE 8 MG/250 ML 250 ML IV SCH ×5 (00:02→22:06)
[2021-03-28] MEDS: PIPERACILLIN SODIUM/TAZOBACTAM 4.5 GM in NS (IVPB) 100 ML IV SCH ×3 (02:01→22:05)
[2021-03-28 02:37] VITALS: BP 118/63
[2021-03-28] MEDS: RT-ALBUTEROL HFA 8.5 GM INHALER IH SCH ×6 (02:37→22:19)
[2021-03-28] MEDS: SODIUM BICARBONATE 8.4% VIAL 150 MEQ in 1/2 NS IV SOLUTION 1,000 ML IV SCH ×3 (03:51→16:05)
[2021-03-28 05:12] LABS: BASOPHILS # (AUTO) 0.1 10^3/uL (0.0-0.1); BASOPHILS % (AUTO) 0 % (0-10); LYMPHOCYTES % (AUTO) 3 % (12-44)
[2021-03-28] MEDS: D5 1/2 NS 1000 ML IV SOLUTION 1,000 ML IV SCH ×3 (05:12→13:32)
[2021-03-28 05:14] LABS: EOSINOPHILS # (AUTO) 0.4 10^3/uL (0.0-0.3); EOSINOPHILS % (AUTO) 2 % (0-10); HEMATOCRIT 29 % (40-54); HEMOGLOBIN 10.6 g/dL (13.3-17.7); LYMPHOCYTES # (AUTO) 0.7 10^3/uL (1.0-4.0); MEAN CORPUSCULAR HEMOGLOBIN 31 pg (25-34); MEAN CORPUSCULAR HGB CONC 37 g/dL (32-36); MEAN CORPUSCULAR VOLUME 83 fL (80-99); MONOCYTES # (AUTO) 0.5 10^3/uL (0.0-1.0); MONOCYTES % (AUTO) 2 % (0-12); NEUTROPHILS # (AUTO) 18.7 10^3/uL (1.8-7.8); NEUTROPHILS % (AUTO) 90 % (42-75); PLATELET COUNT 56 10^3/uL (130-400); WHITE BLOOD COUNT 20.9 10^3/uL (4.3-11.0)
[2021-03-28 05:45] LABS: ALBUMIN 1.9 GM/DL (3.2-4.5); BILIRUBIN,TOTAL 3.6 MG/DL (0.1-1.0); CALCIUM 6.5 MG/DL (8.5-10.1); CREATININE SERUM 4.43 MG/DL (0.60-1.30); MAGNESIUM 1.8 MG/DL (1.6-2.4); PHOSPHORUS 2.5 MG/DL (2.3-4.7); POTASSIUM 4.2 MMOL/L (3.6-5.0); TOTAL PROTEIN 5.3 GM/DL (6.4-8.2)
[2021-03-28] MEDS: POTASSIUM CL 10MEQ/50ML IVPB 50 ML IV SCH (06:04)
[2021-03-28] MEDS: KCL 20 MEQ TAB (K-DUR) PO SCH (06:04)
[2021-03-28] MEDS: MAGNESIUM 1 GM/100 ML IVPB 100 ML IV SCH (06:04)
[2021-03-28 06:20] LABS: ABG BASE EXCESS 5.5 MMOL/L (-2.5-2.5); ABG OXYGEN SATURATION 89 % (94-100); ABG PCO2 36 MMHG (35-45); ABG PH 7.51 (7.37-7.43); ABG PO2 62 MMHG (79-93); ABG TCO2 29.7 MMOL/L (21.0-31.0)
[2021-03-28 06:21] LABS: INSPIRED O2 50%; PATIENT TEMP 37.5; VENTILATOR YES
[2021-03-28] MEDS: PROPOFOL DRIP (ICU) 100 ML IV SCH ×3 (06:53→22:05)
[2021-03-28] MEDS ORDERED: LISI5TAB20 PO (09:21)
[2021-03-28] MEDS ORDERED: ACET-2267 PO (09:21)
[2021-03-28] MEDS ORDERED: METF-399 PO (09:21)
[2021-03-28] MEDS ORDERED: GLIP10TA13 PO (09:21)
--- NOTE | 2021-03-28 09:36 | Progress Note ---
Subjective Subjective/Events-last exam Afebrile, mechanically ventilated. Focused Exam Lactate Level 03/27/21 06:22: Lactic Acid Level 6.59*H 03/27/21 08:25: Lactic Acid Level 6.30*H 03/27/21 10:30: Lactic Acid Level 4.38*H Objective Exam Last Set of Vital Signs Vital Signs Date Time Temp Pulse Resp B/P (MAP) Pulse Ox O2 Delivery O2 Flow Rate FiO2 03/28/21 09:00 37.7 89 33 105/50 94 Mechanical Ventilator 45.00 03/28/21 08:00 45 Capillary Refill : Less Than 3 Seconds I&O Intake and Output 03/28/21 00:00 Intake Total 2201 ml Output Total 270 ml Balance 1931 ml Intake Oral 0 ml IV Total 2201 ml Output Urine Total 270 ml General: Other (intubated, no response to voice or touch) Lungs: Other (ronchi) Heart: Regular Rate, No Murmurs Abdomen: Normal Bowel Sounds, Soft Extremities: Other (hands and feet cold) Results/Procedures Lab Laboratory Tests 03/27/21 10:06: Glucometer 465*H 03/27/21 10:30: Lactic Acid Level 4.38*H 03/27/21 10:57: Glucometer 383H 03/27/21 12:12: Glucometer 423*H 03/27/21 14:08: Glucometer 343H 03/27/21 15:02: Glucometer 376H 03/27/21 15:56: Glucometer 299H 03/27/21 17:12: Glucometer 301H 03/27/21 18:07: Glucometer 292H 03/27/21 18:51: Glucometer 254H 03/27/21 20:13: Glucometer 285H 03/27/21 20:45: Sodium Level 150H, Potassium Level 3.5L, Chloride Level 107, Carbon Dioxide Lev el 27, Anion Gap 16H, Blood Urea Nitrogen 85H, Creatinine 4.00#H, Estimat Glomerular Filtration Rate 16, BUN/Creatinine Ratio 21, Glucose Level 5*L, Calcium Level 7.0L 03/27/21 21:56: Glucometer 11*L 03/27/21 22:48: Glucometer 34*L 03/27/21 23:57: Glucometer 77 03/28/21 00:57: Glucometer 82 03/28/21 01:57: Glucometer 94 03/28/21 02:57: Glucometer 129H 03/28/21 03:55: Glucometer 137H 03/28/21 04:55: White Blood Count 20.9H, Red Blood Count 3.47L, Hemoglobin 10.6L, Hematocrit 29L , Mean Corpuscular Volume 83, Mean Corpuscular Hemoglobin 31, Mean Corpuscular Hemoglobin Concent 37H, Red Cell Distribution Width 13.2, Platelet Count 56L, Mean Platelet Volume , Immature Granulocyte % (Auto) 3, Neutrophils (%) (Auto) 90H, Lymphocytes (%) (Auto) 3L, Monocytes (%) (Auto) 2, Eosinophils (%) (Auto) 2, Basophils (%) (Auto) 0, Neutrophils # (Auto) 18.7H, Lymphocytes # (Auto) 0.7L , Monocytes # (Auto) 0.5, Eosinophils # (Auto) 0.4H, Basophils # (Auto) 0.1, Immature Granulocyte # (Auto) 0.6H, Percent Immature Platelet Fraction 8.6H, Sodium Level 147H, Potassium Level 4.2, Chloride Level 105, Carbon Dioxide Level 24, Anion Gap 18H, Blood Urea Nitrogen 87H, Creatinine 4.43#H, Estimat Glomerular Filtration Rate 14, BUN/Creatinine Ratio 20, Glucose Level 145H, Calc ium Level 6.5L, Corrected Calcium 8.2L, Phosphorus Level 2.5, Magnesium Level 1.8, Total Bilirubin 3.6H, Aspartate Amino Transf (AST/SGOT) 257H, Alanine Aminotransferase (ALT/SGPT) 214H, Alkaline Phosphatase 115, Total Protein 5.3L, Albumin 1.9L 03/28/21 05:10: Blood Gas Puncture Site RT BRACHIAL, Blood Gas Patient Temperature 37.5, Arterial Blood pH 7.51H, Arterial Blood Partial Pressure CO2 36, Arterial Blood Partial Pressure O2 62L, Arterial Blood HCO3 29H, Arterial Blood Total CO2 29.7, Arterial Blood Oxygen Saturation 89L, Arterial Blood Base Excess 5.5H, Norm Test NA, Blood Gas Ventilator Setting YES, Blood Gas Inspired Oxygen 50% 03/28/21 05:58: Glucometer 156H 03/28/21 06:55: Glucometer 164H 03/28/21 07:57: Glucometer 205H 03/28/21 08:56: Glucometer 207H Microbiology 03/26/21 Blood Culture - Preliminary, Resulted No growth 03/26/21 MRSA Screen - Final, Complete MRSA not isolated Assessment/Plan Assessment/Plan (1) COVID-19 Status: Acute Assessment & Plan: Had Moderna vaccine on 06/22 and 2020. On dexamethasone. (2) Acute respiratory failure Status: Acute Assessment & Plan: Secondary to COVID19 and possibly bacterial pneumonia. Requiring mechanical ventilation, s/p cardiorespiratory arrest. Appreciate [facility] ICU management. Qualifiers: Qualified Codes: J96.01 - Acute respiratory failure with hypoxia; J96.02 - Acute respiratory failure with hypercapnia (3) Cardiopulmonary arrest Status: Acute Assessment & Plan: Witnessed at home, s/p epi x 3 by EMS. Appreciate [facility] ICU recommendations. No meaningful responses to this point. (4) Hyperglycemia Status: Acute Assessment & Plan: On insulin drip initially. Had marked hypoglycemia, now back in the 200s, off of insulin drip for now. (5) Liver injury Status: Acute Assessment & Plan: Secondary to hypoxia/cardiovascular collapse. Improving. Qualifiers: Qualified Codes: S36.119A - Unspecified injury of liver, initial encounter (6) Transaminitis Status: Acute (7) Acute kidney injury Status: Acute Assessment & Plan: Secondary to hypotension/cardiovascular collapse. Baseline creatinine around 1.35-1.40 per labs in May 2020 in clinic. Worsening in spite of blood pressure support and IVF. (8) Lactic acidosis Status: Acute Assessment & Plan: Secondary to cardiovascular collapse. (9) Respiratory acidosis with metabolic acidosis Status: Acute (10) Diabetes mellitus, type 2 Status: Chronic Assessment & Plan: Last A1c in clinic 05/2020 was over 9, lost to follow up per diabetes team. Qualifiers: Qualified Codes: E11.65 - Type 2 diabetes mellitus with hyperglycemia (11) Thrombocytopenia Status: Acute (12) Coagulopathy Status: Acute Assessment & Plan: Elevated INR and markedly elevated D dimer secondary to multiorgan failure. (13) Multifocal pneumonia Status: Acute Assessment & Plan: Possible bacterial component with COVID19, on zosyn and vancomycin (14) CKD (chronic kidney disease) Status: Chronic (15) Hypertension Status: Chronic Assessment & Plan: Hypotensive since arrival. Qualifiers: Qualified Codes: I10 - Essential (primary) hypertension (16) Hypernatremia Status: Acute (17) DVT prophylaxis Status: Acute Assessment & Plan: No pharmacologic due to drastic drop in platelets last 24 hours and decreasing hemoglobin. (18) Goals of care, counseling/discussion Status: Acute Assessment & Plan: Spoke with sister Ashley and updated on status, she expressed the family continued to want to pursue aggressive care (other than they would not want him to be coded again) for 3 days and then at that time will decide on goals of care. MARLEY VELASCO MD Mar 28, 2021 09:36
[2021-03-28] MEDS ORDERED: ACETAMINOPHEN 500 MG TAB (TYLENOL) PO NR (10:00)
--- NOTE | 2021-03-28 10:42 | Tele-ICU Progress Note ---
Subjective Date Seen by a Provider: Mar 28, 2021 Time Seen by a Provider: 10:42 Sepsis Event Evaluation Height, Weight, BMI Height: 5'2.00" Weight: 150lbs. 11.6oz. 68.186262fa; 26.72 BMI Method:Stated Focused Exam Lactate Level 03/27/21 06:22: Lactic Acid Level 6.59*H 03/27/21 08:25: Lactic Acid Level 6.30*H 03/27/21 10:30: Lactic Acid Level 4.38*H Exam Exam Patient acknowledged, consented, and participated in this virtual visit which w as conducted using real time audio/video Vital Signs Date Time Temp Pulse Resp B/P (MAP) Pulse Ox O2 Delivery O2 Flow Rate FiO2 03/28/21 10:00 37.5 81 25 113/54 95 Mechanical Ventilator 45.00 03/28/21 09:00 37.7 89 33 105/50 94 Mechanical Ventilator 45.00 03/28/21 08:00 Mechanical Ventilator 45 03/28/21 08:00 37.8 98 34 105/54 95 Mechanical Ventilator 45.00 03/28/21 07:57 90 03/28/21 07:23 Mechanical Ventilator 45.00 03/28/21 07:13 86 28 96 45 03/28/21 07:00 37.8 86 24 104/53 100 Mechanical Ventilator 50.00 03/28/21 06:53 104/58 03/28/21 06:00 37.7 95 22 123/60 96 Mechanical Ventilator 50.00 03/28/21 05:16 117/62 03/28/21 05:00 37.4 93 22 107/58 96 Mechanical Ventilator 50.00 03/28/21 04:09 Mechanical Ventilator 50 03/28/21 04:00 37.4 82 22 116/57 99 Mechanical Ventilator 50.00 03/28/21 03:50 Mechanical Ventilator 50.00 03/28/21 03:00 37.3 89 22 104/59 88 Mechanical Ventilator 60.00 03/28/21 02:37 87 25 95 50 03/28/21 02:00 37.3 79 22 127/60 85 Mechanical Ventilator 60.00 03/28/21 01:00 37.2 96 22 147/69 95 Mechanical Ventilator 60.00 03/28/21 01:00 96 03/28/21 00:06 Mechanical Ventilator 60.00 03/28/21 00:02 141/72 03/28/21 00:00 37.1 94 22 141/72 87 Mechanical Ventilator 60.00 03/27/21 23:14 Mechanical Ventilator 60 03/27/21 23:00 37.1 96 22 160/74 90 Mechanical Ventilator 60.00 03/27/21 22:15 Mechanical Ventilator 60.00 03/27/21 22:08 102/53 03/27/21 22:00 37.2 97 22 102/53 95 Mechanical Ventilator 100.00 03/27/21 21:35 93 25 100 50 03/27/21 21:00 37.3 92 22 128/64 97 Mechanical Ventilator 100.00 03/27/21 20:08 104/56 03/27/21 20:00 37.4 100 22 104/56 93 Mechanical Ventilator 100.00 03/27/21 20:00 Mechanical Ventilator 60 03/27/21 19:00 92 03/27/21 19:00 37.7 92 22 102/57 97 Mechanical Ventilator 100.00 03/27/21 18:28 92 25 96 60 03/27/21 18:00 37.8 93 24 134/77 98 Mechanical Ventilator 100.00 03/27/21 17:00 37.8 95 24 135/74 96 Mechanical Ventilator 100.00 03/27/21 16:03 92 25 94 60 03/27/21 16:00 96 Mechanical Ventilator 100 03/27/21 16:00 37.7 90 30 121/66 95 Mechanical Ventilator 100.00 03/27/21 15:51 93 117/70 03/27/21 15:00 37.5 96 25 123/76 100 Mechanical Ventilator 100.00 03/27/21 14:00 37.4 90 25 149/75 98 Mechanical Ventilator 100.00 03/27/21 13:00 37.3 86 24 123/70 100 Mechanical Ventilator 100.00 03/27/21 12:47 86 03/27/21 12:00 37.2 85 25 127/66 100 Mechanical Ventilator 100.00 03/27/21 12:00 96 Mechanical Ventilator 100 03/27/21 11:08 80 25 98 90 03/27/21 11:02 82 131/68 03/27/21 11:00 37.0 89 22 131/68 97 Mechanical Ventilator 100.00 I & O 03/28/21 07:00 Intake Total 0 ml Output Total 165 ml Balance -165 ml Height & Weight Height: 5'2.00" Weight: 150lbs. 11.6oz. 68.762053ph; 26.72 BMI Method:Stated General Appearance: Chronically ill, Other (intubated, unresponsive) HEENT: PERRL/EOMI, Pharynx Normal Neck: Full Range of Motion, Normal Inspection Respiratory: Lungs Clear, Normal Breath Sounds Cardiovascular: Regular Rate, Rhythm Capillary Refill: Less Than 3 Seconds Extremity: Slow Capillary Refill, Other (Acrocyanosis all 4 extremities) Neurologic/Psychiatric: Other (3T GCS) Skin: Cyanosis, Damp, Diaphoresis Results Lab Laboratory Tests 03/26/21 20:20 03/27/21 02:30 03/27/21 20:45 03/28/21 04:55 Assessment/Plan Assessment/Plan (Tele-ICU Physician , Progress Note ) Available chart/ vitals / labs / Images reviewed Video assessment done using teleICU camera, rest of exam as per RN Discussed with RN , EXAM PER RN Events overnight : FEBRILE FiO2 - 50 I/O = pos Drips: birarb 150 Pressors: LEVO Sedation gtt: propofol 20 ( RASS -1 ) VENT SETTINGS and ABG reviewed Not candidate for SBT today REVIEWED Cardiovascular Stability / Sedation Score / FI02/PEEP / ABG / CXR Consultants: Hospital course: 03/26- 66 yo M known to have Developmental delay, NIDDM, HTN, arrested at home , on 3 pressors, epi, levo, vaso, severly acidotic A/P Acute resp failure - intubated 03/26 , 45 % Shock - levo 0.27 CHRISSY - bicarb gtt 150/h COVID 19 - decadrone IV -Zosyn / vanco s/p cardiac arrest s/p epinephrine with ROSC - as per cards Encephalopaty - post arrest - decrease sedation - reassess ? anoxic brain damage DM with acute DKA - off insulin drip -ISS Thjrombocytopenia - was not on heparin - will not check HIPA - will order DIC w/up if cont agressibe care -? consulmption - ? PE - will not climate change risk assessor now ( severe thrombocytopenia , ? brain damage , CHRISSY Lines : R IJ (Central Line Necessity Reviewed) Elizondo: + OG: + Nutrition: Analgesia: Anxiety/ delirium VTE Prophylaxis: Stress Ulcer Prophylaxis: Glycemic Control: Plans in collaboration with bedside consultants and IM MDs. Discussed with RN to reach out if any questions or concerns A total of35 minutes of critical care time was devoted to this patient today, required to treat and/or prevent further deterioration of critical care condition ( as above) . SHANIA THACKER MD Mar 28, 2021 10:42
[2021-03-28 11:01] VITALS: BP 85/49
[2021-03-28 15:23] VITALS: BP 104/50
[2021-03-28 18:36] VITALS: BP 113/58
[2021-03-28] MEDS: VANCOMYCIN 1 GM/NS 250 ML IVPB IV SCH ×2 (19:38)
[2021-03-28] MEDS ORDERED: inSUlin ASPART (NovoLOG) 1 UNIT/0.01 ML (CHARGE PER UNIT) ONE (19:57)
[2021-03-28] MEDS: inSUlin ASPART (NovoLOG) 1 UNIT/0.01 ML (CHARGE PER UNIT) SQ SCH (20:12)
[2021-03-28] MEDS ORDERED: inSUlin ASPART (NovoLOG) 1 UNIT/0.01 ML (CHARGE PER UNIT) SC SCH (21:00)
[2021-03-28 22:19] VITALS: BP 113/50
[2021-03-29] MEDS: inSUlin ASPART (NovoLOG) 1 UNIT/0.01 ML (CHARGE PER UNIT) SQ SCH (00:38)
[2021-03-29 02:29] VITALS: BP 107/55
[2021-03-29] MEDS: RT-ALBUTEROL HFA 8.5 GM INHALER IH SCH ×6 (02:29→21:14)
[2021-03-29] MEDS: SODIUM BICARBONATE 8.4% VIAL 150 MEQ in 1/2 NS IV SOLUTION 1,000 ML IV SCH ×3 (03:01→17:50)
[2021-03-29] MEDS: PROPOFOL DRIP (ICU) 100 ML IV SCH ×5 (03:01→19:54)
[2021-03-29] MEDS: NOREPINEPHRINE 8 MG/250 ML 250 ML IV SCH ×3 (04:35→17:51)
[2021-03-29 04:41] LABS: EOSINOPHILS % (AUTO) 0 % (0-10); HEMOGLOBIN 10.1 g/dL (13.3-17.7)
[2021-03-29 04:43] LABS: BASOPHILS # (AUTO) 0.1 10^3/uL (0.0-0.1); BASOPHILS % (AUTO) 0 % (0-10); HEMATOCRIT 29 % (40-54); LYMPHOCYTES # (AUTO) 1.4 10^3/uL (1.0-4.0); LYMPHOCYTES % (AUTO) 5 % (12-44); MEAN CORPUSCULAR HEMOGLOBIN 30 pg (25-34); MEAN CORPUSCULAR HGB CONC 35 g/dL (32-36); MEAN CORPUSCULAR VOLUME 86 fL (80-99); MONOCYTES # (AUTO) 0.7 10^3/uL (0.0-1.0); MONOCYTES % (AUTO) 2 % (0-12); NEUTROPHILS # (AUTO) 27.3 10^3/uL (1.8-7.8); NEUTROPHILS % (AUTO) 89 % (42-75); PLATELET COUNT 59 10^3/uL (130-400)
[2021-03-29 04:48] LABS: WHITE BLOOD COUNT 30.6 10^3/uL (4.3-11.0)
[2021-03-29 05:02] LABS: ABG BASE EXCESS 6.3 MMOL/L (-2.5-2.5); ABG OXYGEN SATURATION 95 % (94-100); ABG PCO2 45 MMHG (35-45); ABG PH 7.45 (7.37-7.43); ABG PO2 81 MMHG (79-93); ABG TCO2 31.8 MMOL/L (21.0-31.0)
[2021-03-29 05:06] LABS: ALBUMIN 1.9 GM/DL (3.2-4.5); POTASSIUM 4.6 MMOL/L (3.6-5.0)
[2021-03-29 05:09] LABS: TOTAL PROTEIN 5.2 GM/DL (6.4-8.2)
[2021-03-29 05:11] LABS: BILIRUBIN,TOTAL 2.2 MG/DL (0.1-1.0)
[2021-03-29 05:12] LABS: CREATININE SERUM 5.93 MG/DL (0.60-1.30)
[2021-03-29 05:13] LABS: ALLENS TEST POSITIVE; INSPIRED O2 90; PATIENT TEMP 37.1; VENTILATOR YES
[2021-03-29 05:15] LABS: CALCIUM 5.6 MG/DL (8.5-10.1)
[2021-03-29] MEDS: MAGNESIUM 1 GM/100 ML IVPB 100 ML IV SCH (05:19)
[2021-03-29] MEDS: KCL 20 MEQ TAB (K-DUR) PO SCH (05:19)
[2021-03-29] MEDS: POTASSIUM CL 10MEQ/50ML IVPB 50 ML IV SCH (05:20)
[2021-03-29] MEDS ORDERED: CALC GLUC 1 GM/100 ML IVPB 100 ML IV ONE (05:30)
[2021-03-29] MEDS ORDERED: inSUlin ASPART (NovoLOG) 1 UNIT/0.01 ML (CHARGE PER UNIT) ONE (05:54)
[2021-03-29] MEDS ORDERED: inSUlin ASPART (NovoLOG) 1 UNIT/0.01 ML (CHARGE PER UNIT) SC SCH (06:00)
[2021-03-29] MEDS: inSUlin ASPART (NovoLOG) 1 UNIT/0.01 ML (CHARGE PER UNIT) SC SCH ×4 (06:00→23:53)
[2021-03-29 07:28] VITALS: BP 127/66
[2021-03-29] MEDS: PANTOPRAZOLE 40 MG (PROTONIX) VIAL IV SCH (07:56)
[2021-03-29 11:19] VITALS: BP 133/49
[2021-03-29] MEDS: PIPERACILLIN SODIUM/TAZOBACTAM 4.5 GM in NS (IVPB) 100 ML IV SCH ×2 (11:29→22:23)
--- NOTE | 2021-03-29 12:44 | Progress Note ---
Subjective Subjective/Events-last exam Afebrile, still not responding when sedation is off, per nurse had some brow furrowing, but no other spontaneous movement, sluggish pupils and no response to painful stimuli. Focused Exam Lactate Level 03/27/21 06:22: Lactic Acid Level 6.59*H 03/27/21 08:25: Lactic Acid Level 6.30*H 03/27/21 10:30: Lactic Acid Level 4.38*H Objective Exam Last Set of Vital Signs Vital Signs Date Time Temp Pulse Resp B/P (MAP) Pulse Ox O2 Delivery O2 Flow Rate FiO2 03/29/21 12:00 Mechanical Ventilator 75 03/29/21 11:35 88 151/64 03/29/21 11:19 25 100 03/29/21 11:00 75.00 03/29/21 09:00 36.7 Capillary Refill : Less Than 3 Seconds I&O Intake and Output 03/29/21 00:00 Intake Total 180 ml Output Total 405 ml Balance -225 ml Intake Oral 0 ml Other 180 ml Output Urine Total 205 ml Gastric Drainage Total 200 ml General: Other (intubated) Lungs: Other (ronchi) Abdomen: Normal Bowel Sounds, Soft, Other (grossly bloody NG drainage) Extremities: Other (edema, cold hands and feet) Results/Procedures Lab Laboratory Tests 03/28/21 14:17: Glucometer 225H 03/28/21 16:17: Glucometer 260H 03/28/21 19:31: Glucometer 253H 03/29/21 00:35: Glucometer 305H 03/29/21 04:30: White Blood Count 30.6*H, Red Blood Count 3.36L, Hemoglobin 10.1L, Hematocrit 29L, Mean Corpuscular Volume 86, Mean Corpuscular Hemoglobin 30, Mean Corpuscular Hemoglobin Concent 35, Red Cell Distribution Width 14.1, Platelet Count 59L, Mean Platelet Volume , Immature Granulocyte % (Auto) 4, Neutrophils (%) (Auto) 89H, Lymphocytes (%) (Auto) 5L, Monocytes (%) (Auto) 2, Eosinophils (%) (Auto) 0, Basophils (%) (Auto) 0, Neutrophils # (Auto) 27.3H, Lymphocytes # (Auto) 1.4, Monocytes # (Auto) 0.7, Eosinophils # (Auto) 0.0, Basophils # (Auto) 0.1, Immature Granulocyte # (Auto) 1.1H, Percent Immature Platelet Fraction 10.9H, Sodium Level 148H, Potassium Level 4.6, Chloride Level 98, Carbon Dioxide Level 25, Anion Gap 25H, Blood Urea Nitrogen 114#*H, Creatinine 5.93#H, Estimat Glomerular Filtration Rate 10, BUN/Creatinine Ratio 19, Glucose Level 330H, Calcium Level 5.6*L, Corrected Calcium 7.3L, Phosphorus Level 5.0H, Magnesium Level 2.0, Total Bilirubin 2.2H, Aspartate Amino Transf (AST/SGOT) 101H, Alanine Aminotransferase (ALT/SGPT) 147H, Alkaline Phosphatase 133, Total Protein 5.2L, Albumin 1.9L, Triglycerides Level 513H 03/29/21 04:53: Blood Gas Puncture Site RIGHT RADIAL, Blood Gas Patient Temperature 37.1, Arterial Blood pH 7.45H, Arterial Blood Partial Pressure CO2 45, Arterial Blood Partial Pressure O2 81, Arterial Blood HCO3 30H, Arterial Blood Total CO2 31.8H, Arterial Blood Oxygen Saturation 95, Arterial Blood Base Excess 6.3H, Norm Test POSITIVE, Blood Gas Ventilator Setting YES, Blood Gas Inspired Oxygen 90 03/29/21 11:24: Glucometer 333H Microbiology 03/26/21 Blood Culture - Preliminary, Resulted No growth 03/26/21 Urine Culture - Final, Complete NO GROWTH 03/26/21 MRSA Screen - Final, Complete MRSA not isolated Assessment/Plan Assessment/Plan (1) Cardiopulmonary arrest Status: Acute Assessment & Plan: Witnessed at home, s/p epi x 3 by EMS. Appreciate [facility] ICU recommendations. No meaningful responses to this point, family requested to wait 3 days after admit and reassess. (2) COVID-19 Status: Acute Assessment & Plan: Had Moderna vaccine on 06/22 and 2020. On dexamethasone day 4. (3) Acute respiratory failure Status: Acute Assessment & Plan: Secondary to COVID19 and possibly bacterial pneumonia. Requiring mechanical ventilation, s/p cardiorespiratory arrest. Appreciate [facility] ICU management. Qualifiers: Qualified Codes: J96.01 - Acute respiratory failure with hypoxia; J96.02 - Acute respiratory failure with hypercapnia (4) Hyperglycemia Status: Acute Assessment & Plan: On insulin drip initially. Had marked hypoglycemia, now back in the 200s, off of insulin drip for now. (5) Liver injury Status: Acute Assessment & Plan: Secondary to hypoxia/cardiovascular collapse. Improving. Qualifiers: Qualified Codes: S36.119A - Unspecified injury of liver, initial encounter (6) Transaminitis Status: Acute (7) Acute kidney injury Status: Acute Assessment & Plan: Secondary to hypotension/cardiovascular collapse. Baseline creatinine around 1.35-1.40 per labs in May 2020 in clinic. Worsening in spite of blood pressure support and IVF. 03/29- continued worsening, creatinine up to 5.93 today, without hyperkalemia. (8) Lactic acidosis Status: Acute Assessment & Plan: Secondary to cardiovascular collapse. (9) Respiratory acidosis with metabolic acidosis Status: Acute (10) Diabetes mellitus, type 2 Status: Chronic Assessment & Plan: Last A1c in clinic 05/2020 was over 9, lost to follow up per diabetes team. Qualifiers: Qualified Codes: E11.65 - Type 2 diabetes mellitus with hyperglycemia (11) Thrombocytopenia Status: Acute (12) Coagulopathy Status: Acute Assessment & Plan: Elevated INR and markedly elevated D dimer secondary to multiorgan failure. (13) Multifocal pneumonia Status: Acute Assessment & Plan: Possible bacterial component with COVID19, on zosyn and vancomycin (14) CKD (chronic kidney disease) Status: Chronic (15) Hypertension Status: Chronic Assessment & Plan: Hypotensive since arrival. Qualifiers: Qualified Codes: I10 - Essential (primary) hypertension (16) Hypernatremia Status: Acute (17) DVT prophylaxis Status: Acute Assessment & Plan: No pharmacologic due to drastic drop in platelets, decreasing hemoglobin and grossly bloody NG drainage. (18) Goals of care, counseling/discussion Status: Acute Assessment & Plan: 03/28- Spoke with sister Ashley and updated on status, she expressed the family continued to want to pursue aggressive care (other than they would not want him to be coded again) for 3 days and then at that time will decide on goals of care. 03/29- updated Ashley on continued poor condition and worsening kidney function, etc, she states family is not ready to change goals to comfort, offered to have family meeting and scheduled for 11 am tomorrow. MARLEY VELASCO MD Mar 29, 2021 12:44
[2021-03-29 14:44] VITALS: BP 123/60
--- NOTE | 2021-03-29 17:41 | Tele-ICU Progress Note ---
Subjective Date Seen by a Provider: Mar 29, 2021 Time Seen by a Provider: 09:22 Sepsis Event Evaluation Height, Weight, BMI Height: 5'2.00" Weight: 150lbs. 11.6oz. 68.149108nj; 26.72 BMI Method:Stated Focused Exam Lactate Level 03/27/21 06:22: Lactic Acid Level 6.59*H 03/27/21 08:25: Lactic Acid Level 6.30*H 03/27/21 10:30: Lactic Acid Level 4.38*H Exam Exam Patient acknowledged, consented, and participated in this virtual visit which wa s conducted using real time audio/video Vital Signs Date Time Temp Pulse Resp B/P (MAP) Pulse Ox O2 Delivery O2 Flow Rate FiO2 03/29/21 17:00 89 24 145/71 100 Mechanical Ventilator 60.00 03/29/21 16:00 90 25 142/68 100 Mechanical Ventilator 60.00 03/29/21 16:00 Mechanical Ventilator 75 03/29/21 15:00 84 24 124/55 100 Mechanical Ventilator 60.00 03/29/21 14:49 Mechanical Ventilator 60.00 03/29/21 14:44 87 25 100 75 03/29/21 14:00 90 25 138/70 100 Mechanical Ventilator 75.00 03/29/21 13:00 89 24 148/64 100 Mechanical Ventilator 75.00 03/29/21 12:45 88 03/29/21 12:00 Mechanical Ventilator 75 03/29/21 12:00 89 25 147/78 100 Mechanical Ventilator 75.00 03/29/21 11:35 88 151/64 03/29/21 11:34 88 151/64 03/29/21 11:33 88 151/64 03/29/21 11:19 90 25 100 75 03/29/21 11:00 90 24 124/42 100 Mechanical Ventilator 75.00 03/29/21 10:00 89 25 122/52 100 Mechanical Ventilator 75.00 03/29/21 09:00 36.7 86 26 118/55 100 Mechanical Ventilator 75.00 03/29/21 08:00 Mechanical Ventilator 75 03/29/21 08:00 36.9 90 25 104/57 100 Mechanical Ventilator 75.00 03/29/21 07:57 91 117/55 03/29/21 07:49 Mechanical Ventilator 75.00 03/29/21 07:28 87 25 100 80 03/29/21 07:00 85 03/29/21 07:00 36.9 89 25 128/60 100 Mechanical Ventilator 80.00 03/29/21 06:00 36.9 87 25 132/59 100 Mechanical Ventilator 80.00 03/29/21 05:57 Mechanical Ventilator 80.00 03/29/21 05:00 36.9 87 25 137/59 100 Mechanical Ventilator 90.00 03/29/21 04:35 107/43 03/29/21 04:34 Mechanical Ventilator 90 03/29/21 04:00 37.1 87 25 129/58 100 Mechanical Ventilator 90.00 03/29/21 03:01 122/64 03/29/21 03:00 37.1 90 35 122/64 93 Mechanical Ventilator 90.00 03/29/21 02:29 90 27 92 90 03/29/21 02:00 37.0 90 25 108/58 90 Mechanical Ventilator 90.00 03/29/21 01:00 91 03/29/21 01:00 37.0 91 25 108/49 93 Mechanical Ventilator 90.00 03/29/21 00:30 Mechanical Ventilator 90 03/29/21 00:00 37.0 85 25 109/57 95 Mechanical Ventilator 90.00 03/28/21 23:00 37.1 92 25 106/58 93 Mechanical Ventilator 90.00 03/28/21 22:19 83 27 98 90 03/28/21 22:06 117/61 03/28/21 22:05 117/61 03/28/21 22:00 37.1 90 25 117/61 97 Mechanical Ventilator 90.00 03/28/21 21:00 37.1 89 25 116/58 94 Mechanical Ventilator 100.00 03/28/21 20:32 Mechanical Ventilator 100 03/28/21 20:00 37.3 80 25 109/53 98 Mechanical Ventilator 100.00 03/28/21 19:00 37.5 82 25 111/55 100 Mechanical Ventilator 100.00 03/28/21 19:00 82 03/28/21 18:36 98 25 92 100 03/28/21 18:05 Mechanical Ventilator 100.00 03/28/21 18:00 37.7 82 25 106/46 100 Mechanical Ventilator 45.00 I & O 03/29/21 07:00 Intake Total 180 ml Output Total 705 ml Balance -525 ml Height & Weight Height: 5'2.00" Weight: 150lbs. 11.6oz. 68.594014ml; 26.72 BMI Method:Stated General Appearance: Chronically ill, Other (intubated, unresponsive) HEENT: PERRL/EOMI, Pharynx Normal Neck: Full Range of Motion, Normal Inspection Respiratory: Lungs Clear, Normal Breath Sounds Cardiovascular: Regular Rate, Rhythm Capillary Refill: Less Than 3 Seconds Extremity: Slow Capillary Refill, Other (Acrocyanosis all 4 extremities) Neurologic/Psychiatric: Other (3T GCS) Skin: Cyanosis, Damp, Diaphoresis Results Lab Laboratory Tests 03/27/21 20:45 03/28/21 04:55 03/29/21 04:30 Assessment/Plan Assessment/Plan (Tele-ICU Physician , Progress Note ) Available chart/ vitals / labs / Images reviewed Video assessment done using teleICU camera, rest of exam as per RN Discussed with RN , EXAM PER RN Events overnight : FEBRILE FiO2 - 80 I/O = pos Drips: bicarb 150 Pressors: LEVO Sedation gtt: propofol 20 ( RASS -1 ) VENT SETTINGS and ABG reviewed Not candidate for SBT today REVIEWED Cardiovascular Stability / Sedation Score / FI02/PEEP / ABG / CXR Consultants: Hospital course: 03/26- 66 yo M known to have Developmental delay, NIDDM, HTN, arrested at home , on 3 pressors, epi, levo, vaso, severly acidotic A/P Acute resp failure - intubated 03/26 , 80% today - WORSENING Shock - levo 0.22 CHRISSY - bicarb gtt 150/h - ct 6 today - WORSENING , ANURIC COVID 19 - decadrone IV -Zosyn / vanco - WORSENING of leukocytosis , Blood cx MSSA - s/p cardiac arrest s/p epinephrine with ROSC - as per cards Encephalopaty - post arrest - decrease sedation - attempts leads to significant tachycardia and vent asynchrony - but no respons on minimal sedation ( prop 50 ) ? anoxic brain damage DM with acute DKA - off insulin drip -ISS Thjrombocytopenia - was not on heparin - will not check HIPA - will order DIC w/up if cont agressibe care -? consulmption - ? PE - will not changer fixer now ( severe thrombocytopenia , ? brain damage , CHRISSY - coffee ground in NG Lines : R IJ (Central Line Necessity Reviewed) Elizondo: + OG: + Nutrition: Analgesia: Anxiety/ delirium VTE Prophylaxis: Stress Ulcer Prophylaxis: ppi Glycemic Control: Plans in collaboration with bedside consultants and IM MDs. Discussed with RN to reach out if any questions or concerns A total of35 minutes of critical care time was devoted to this patient today, required to treat and/or prevent further deterioration of critical care condi tion ( as above) . SHANIA THACKER MD Mar 29, 2021 17:41
[2021-03-29 18:46] VITALS: BP 119/57
[2021-03-29 21:14] VITALS: BP 117/60
[2021-03-30] MEDS: SODIUM BICARBONATE 8.4% VIAL 150 MEQ in 1/2 NS IV SOLUTION 1,000 ML IV SCH (00:46)
[2021-03-30 03:00] VITALS: BP 107/52
[2021-03-30] MEDS: RT-ALBUTEROL HFA 8.5 GM INHALER IH SCH ×6 (03:00→21:40)
[2021-03-30] MEDS: PROPOFOL DRIP (ICU) 100 ML IV SCH (03:48)
[2021-03-30] MEDS: NOREPINEPHRINE 8 MG/250 ML 250 ML IV SCH (04:32)
[2021-03-30 04:45] LABS: EOSINOPHILS % (AUTO) 0 % (0-10); HEMOGLOBIN 8.4 g/dL (13.3-17.7); MONOCYTES % (AUTO) 2 % (0-12); NEUTROPHILS % (AUTO) 93 % (42-75)
[2021-03-30 04:47] LABS: BASOPHILS % (AUTO) 0 % (0-10); HEMATOCRIT 24 % (40-54); LYMPHOCYTES # (AUTO) 0.6 10^3/uL (1.0-4.0); LYMPHOCYTES % (AUTO) 3 % (12-44); MEAN CORPUSCULAR HEMOGLOBIN 30 pg (25-34); MEAN CORPUSCULAR HGB CONC 35 g/dL (32-36); MEAN CORPUSCULAR VOLUME 86 fL (80-99); MONOCYTES # (AUTO) 0.5 10^3/uL (0.0-1.0); PLATELET COUNT 45 10^3/uL (130-400); WHITE BLOOD COUNT 22.7 10^3/uL (4.3-11.0)
[2021-03-30 04:50] LABS: ABG BASE EXCESS 14.6 MMOL/L (-2.5-2.5); ABG OXYGEN SATURATION 88 % (94-100); ABG PCO2 43 MMHG (35-45); ABG PH 7.56 (7.37-7.43); ABG PO2 52 MMHG (79-93); ABG TCO2 39.7 MMOL/L (21.0-31.0)
[2021-03-30 04:51] LABS: ALLENS TEST POSITIVE; INSPIRED O2 50; VENTILATOR YES
[2021-03-30 04:55] LABS: ALBUMIN 1.8 GM/DL (3.2-4.5); POTASSIUM 4.2 MMOL/L (3.6-5.0)
[2021-03-30 04:58] LABS: TOTAL PROTEIN 4.6 GM/DL (6.4-8.2)
[2021-03-30 04:59] LABS: BILIRUBIN,TOTAL 1.4 MG/DL (0.1-1.0)
[2021-03-30 05:01] LABS: CREATININE SERUM 6.56 MG/DL (0.60-1.30); PHOSPHORUS 4.8 MG/DL (2.3-4.7)
[2021-03-30 05:04] LABS: MAGNESIUM 2.1 MG/DL (1.6-2.4)
[2021-03-30] MEDS: MAGNESIUM 1 GM/100 ML IVPB 100 ML IV SCH (05:20)
[2021-03-30] MEDS: POTASSIUM CL 10MEQ/50ML IVPB 50 ML IV SCH (05:20)
[2021-03-30] MEDS: KCL 20 MEQ TAB (K-DUR) PO SCH (05:20)
[2021-03-30] MEDS: CALC GLUC 1 GM/100 ML IVPB 100 ML IV SCH (06:25)
[2021-03-30] MEDS: inSUlin ASPART (NovoLOG) 1 UNIT/0.01 ML (CHARGE PER UNIT) SC SCH ×3 (06:25→18:33)
[2021-03-30 06:49] VITALS: BP 129/63
[2021-03-30] MEDS: PANTOPRAZOLE 40 MG (PROTONIX) VIAL IV SCH (08:29)
[2021-03-30 10:24] VITALS: BP 114/55
--- NOTE | 2021-03-30 10:39 | Tele-ICU Progress Note ---
Subjective Date Seen by a Provider: Mar 30, 2021 Time Seen by a Provider: 09:13 Sepsis Event Evaluation Height, Weight, BMI Height: 5'2.00" Weight: 150lbs. 11.6oz. 68.859969jp; 26.72 BMI Method:Stated Exam Exam Patient acknowledged, consented, and participated in this virtual visit which was conducted using real time audio/video Vital Signs Date Time Temp Pulse Resp B/P (MAP) Pulse Ox O2 Delivery O2 Flow Rate FiO2 03/30/21 10:24 78 25 92 60 03/30/21 09:00 78 26 108/55 94 Mechanical Ventilator 60.00 03/30/21 08:48 36.2 Mechanical Ventilator 60.00 03/30/21 08:30 86 Mechanical Ventilator 50 03/30/21 08:00 76 24 107/54 89 Mechanical Ventilator 50.00 03/30/21 07:00 80 25 130/55 92 Mechanical Ventilator 50.00 03/30/21 07:00 81 03/30/21 06:49 80 26 92 50 03/30/21 06:27 36.9 80 25 116/60 97 Mechanical Ventilator 50.00 03/30/21 05:00 36.9 84 25 113/54 97 Mechanical Ventilator 50.00 03/30/21 04:32 115/56 03/30/21 04:00 37.1 87 25 116/58 97 Mechanical Ventilator 50.00 03/30/21 03:48 87 03/30/21 03:48 110/57 03/30/21 03:45 Mechanical Ventilator 50 03/30/21 03:00 91 25 94 50 03/30/21 03:00 37.1 89 25 107/52 93 Mechanical Ventilator 50.00 03/30/21 02:00 37.0 90 25 108/49 93 Mechanical Ventilator 50.00 03/30/21 01:00 36.9 86 25 111/53 94 Mechanical Ventilator 50.00 03/30/21 01:00 86 03/30/21 00:00 36.8 86 25 108/51 94 Mechanical Ventilator 50.00 03/30/21 00:00 Mechanical Ventilator 50 03/29/21 22:00 36.6 85 25 108/59 96 Mechanical Ventilator 50.00 03/29/21 21:14 89 25 95 50 03/29/21 21:00 36.5 85 25 123/64 97 Mechanical Ventilator 50.00 03/29/21 20:00 36.5 89 25 109/56 96 Mechanical Ventilator 50.00 03/29/21 19:58 Mechanical Ventilator 50 03/29/21 19:57 36.5 87 25 136/66 98 Mechanical Ventilator 50.00 03/29/21 19:54 136/66 03/29/21 19:54 136/66 03/29/21 19:00 36.5 89 25 134/67 99 Mechanical Ventilator 60.00 03/29/21 19:00 89 03/29/21 18:46 86 25 99 60 03/29/21 18:00 36.6 89 25 132/72 100 Mechanical Ventilator 60.00 03/29/21 17:51 89 100/63 03/29/21 17:00 89 24 145/71 100 Mechanical Ventilator 60.00 03/29/21 16:00 90 25 142/68 100 Mechanical Ventilator 60.00 03/29/21 16:00 Mechanical Ventilator 75 03/29/21 15:00 84 24 124/55 100 Mechanical Ventilator 60.00 03/29/21 14:49 Mechanical Ventilator 60.00 03/29/21 14:44 87 25 100 75 03/29/21 14:00 90 25 138/70 100 Mechanical Ventilator 75.00 03/29/21 13:00 89 24 148/64 100 Mechanical Ventilator 75.00 03/29/21 12:45 88 03/29/21 12:00 Mechanical Ventilator 75 03/29/21 12:00 89 25 147/78 100 Mechanical Ventilator 75.00 03/29/21 11:35 88 151/64 03/29/21 11:34 88 151/64 03/29/21 11:33 88 151/64 03/29/21 11:19 90 25 100 75 03/29/21 11:00 90 24 124/42 100 Mechanical Ventilator 75.00 I & O 03/30/21 06:59 Intake Total 60 ml Output Total 920 ml Balance -860 ml Height & Weight Height: 5'2.00" Weight: 150lbs. 11.6oz. 68.780339ob; 26.72 BMI Method:Stated General Appearance: Chronically ill, Other (intubated, unresponsive) HEENT: PERRL/EOMI, Pharynx Normal Neck: Full Range of Motion, Normal Inspection Respiratory: Lungs Clear, Normal Breath Sounds Cardiovascular: Regular Rate, Rhythm Capillary Refill: Less Than 3 Seconds Extremity: Slow Capillary Refill, Other (Acrocyanosis all 4 extremities) Neurologic/Psychiatric: Other (3T GCS) Skin: Cyanosis, Damp, Diaphoresis Results Lab Laboratory Tests 03/29/21 04:30 03/30/21 04:30 Assessment/Plan Assessment/Plan (Tele-ICU Physician , Progress Note ) Available chart/ vitals / labs / Images reviewed Video assessment done using teleICU camera, rest of exam as per RN Discussed with RN , EXAM PER RN Events overnight : FEBRILE FiO2 - 80 I/O = pos Drips: bicarb 150 Pressors: LEVO Sedation gtt: propofol 20 ( RASS -1 ) VENT SETTINGS and ABG reviewed Not candidate for SBT today REVIEWED Cardiovascular Stability / Sedation Score / FI02/PEEP / ABG / CXR Consultants: Hospital course: 03/26- 66 yo M known to have Developmental delay, NIDDM, HTN, arrested at home , on 3 pressors, epi, levo, vaso, severly acidotic A/P Acute resp failure - intubated 03/26 , 60 % today Shock - levo 0.06 CHRISSY - bicarb gtt 150/h - ct 6 today - WORSENING UO 250 ml COVID 19 - decadrone IV -Zosyn / vanco - WORSENING of leukocytosis , Blood cx MSSA - s/p cardiac arrest s/p epinephrine with ROSC - as per cards Encephalopaty - post arrest - decrease sedation - attempts leads to significant tachycardia and vent asynchrony - but no respons on minimal sedation ( prop 50 ) ? anoxic brain damage DM with acute DKA - off insulin drip -ISS Thjrombocytopenia - was not on heparin - will not check HIPA - will order DIC w/up if cont agressibe care -? consulmption - ? PE - will not knife changer now ( severe thrombocytopenia , ? brain damage , CHRISSY - coffee ground in NG PROGNOSIS POOR WITH MOF PER RN , FAMIL;Y MEETING IS SCHEDULED FOR 11 - WILL FOLLOW Lines : R IJ (Central Line Necessity Reviewed) Elizondo: + OG: + Nutrition: Analgesia: Anxiety/ delirium VTE Prophylaxis: Stress Ulcer Prophylaxis: ppi Glycemic Control: Plans in collaboration with bedside consultants and IM MDs. Discussed with RN to reach out if any questions or concerns A total of35 minutes of critical care time was devoted to this patient today, required to treat and/or prevent further deterioration of critical care condition ( as above) . SHANIA THACKER MD Mar 30, 2021 10:39
--- NOTE | 2021-03-30 11:13 | Progress Note ---
Subjective Subjective/Events-last exam Afebrile, remains unresponsive when not sedated. Worsening renal failure. Objective Exam Last Set of Vital Signs Vital Signs Date Time Temp Pulse Resp B/P (MAP) Pulse Ox O2 Delivery O2 Flow Rate FiO2 03/30/21 10:24 78 25 92 60 03/30/21 09:00 108/55 Mechanical Ventilator 60.00 03/30/21 08:48 36.2 Capillary Refill : Less Than 3 Seconds I&O Intake and Output 03/29/21 23:59 Intake Total 60 ml Output Total 845 ml Balance -785 ml Intake Oral 0 ml Other 60 ml Output Urine Total 445 ml Gastric Drainage Total 400 ml # Bowel Movements 2 General: Other (sedated, intubated) Lungs: Other (ronchi) Heart: Regular Rate, No Murmurs Abdomen: Other (distneded, bilious drainage from NG) Extremities: Other (cold, acrocyanotic hands and feet) Results/Procedures Lab Laboratory Tests 03/29/21 11:24: Glucometer 333H 03/29/21 17:44: Glucometer 368H 03/29/21 23:48: Glucometer 316H 03/30/21 04:27: Blood Gas Puncture Site RIGHT RADIAL, Blood Gas Patient Temperature 37.0, Arterial Blood pH 7.56H, Arterial Blood Partial Pressure CO2 43, Arterial Blood Partial Pressure O2 52L, Arterial Blood HCO3 38H, Arterial Blood Total CO2 39.7H , Arterial Blood Oxygen Saturation 88L, Arterial Blood Base Excess 14.6H, Norm Test POSITIVE, Blood Gas Ventilator Setting YES, Blood Gas Inspired Oxygen 50 03/30/21 04:30: White Blood Count 22.7H, Red Blood Count 2.79L, Hemoglobin 8.4L, Hematocrit 24L, Mean Corpuscular Volume 86, Mean Corpuscular Hemoglobin 30, Mean Corpuscular Hemoglobin Concent 35, Red Cell Distribution Width 13.8, Platelet Count 45L, Mean Platelet Volume , Immature Granulocyte % (Auto) 3, Neutrophils (%) (Auto) 93H, Lymphocytes (%) (Auto) 3L, Monocytes (%) (Auto) 2, Eosinophils (%) (Auto) 0, Basophils (%) (Auto) 0, Neutrophils # (Auto) 21.0H, Lymphocytes # (Auto) 0.6L , Monocytes # (Auto) 0.5, Eosinophils # (Auto) 0.0, Basophils # (Auto) 0.0, Immature Granulocyte # (Auto) 0.6H, Percent Immature Platelet Fraction 11.2H, Sodium Level 150H, Potassium Level 4.2, Chloride Level 96L, Carbon Dioxide Level 34H, Anion Gap 20H, Blood Urea Nitrogen 126*H, Creatinine 6.56#H, Estimat Glomerular Filtration Rate 9, BUN/Creatinine Ratio 19, Glucose Level 333H, Calcium Level 5.0*L, Corrected Calcium 6.8L, Phosphorus Level 4.8H, Magnesium Level 2.1, Total Bilirubin 1.4H, Aspartate Amino Transf (AST/SGOT) 63H, Alanine Aminotransferase (ALT/SGPT) 96H, Alkaline Phosphatase 115, Total Protein 4.6L, Albumin 1.8L Microbiology 03/26/21 Blood Culture - Preliminary, Resulted No growth 03/26/21 Urine Culture - Final, Complete NO GROWTH 03/26/21 MRSA Screen - Final, Complete MRSA not isolated Assessment/Plan Assessment/Plan (1) Cardiopulmonary arrest Status: Acute Assessment & Plan: Witnessed at home, s/p epi x 3 by EMS. Appreciate [facility] ICU recommendations. No meaningful responses to this point, family initially requested to wait 3 days after admit and reassess. 2/2- no change in status, has vital sign abnormalities/vent asynchrony when sedation is decreased, but no meaningful movement or response. (2) COVID-19 Status: Acute Assessment & Plan: Had Moderna vaccine on 06/22 and 2020. On dexamethasone day 5. (3) Acute respiratory failure Status: Acute Assessment & Plan: Secondary to COVID19 and possibly bacterial pneumonia. Requiring mechanical ventilation, s/p cardiorespiratory arrest. Appreciate [facility] ICU management. Qualifiers: Qualified Codes: J96.01 - Acute respiratory failure with hypoxia; J96.02 - Acute respiratory failure with hypercapnia (4) Hyperglycemia Status: Acute Assessment & Plan: On insulin drip initially. Had marked hypoglycemia, now back in the 200s, off of insulin drip for now. (5) Liver injury Status: Acute Assessment & Plan: Secondary to hypoxia/cardiovascular collapse. Improving. Qualifiers: Qualified Codes: S36.119A - Unspecified injury of liver, initial encounter (6) Transaminitis Status: Acute (7) Acute kidney injury Status: Acute Assessment & Plan: Secondary to hypotension/cardiovascular collapse. Baseline creatinine around 1.35-1.40 per labs in May 2020 in clinic. Worsening in spite of blood pressure support and IVF. 03/29- continued worsening, creatinine up to 5.93 today, without hyperkalemia. 2- persistent worsening, creatinine above 6, still making some urine and no hyperkalemia as yet. Continued on bicarb. (8) Lactic acidosis Status: Acute Assessment & Plan: Secondary to cardiovascular collapse. (9) Respiratory acidosis with metabolic acidosis Status: Acute (10) Diabetes mellitus, type 2 Status: Chronic Assessment & Plan: Last A1c in clinic 05/2020 was over 9, lost to follow up per diabetes team. Qualifiers: Qualified Codes: E11.65 - Type 2 diabetes mellitus with hyperglycemia (11) Thrombocytopenia Status: Acute (12) Coagulopathy Status: Acute Assessment & Plan: Elevated INR and markedly elevated D dimer secondary to multiorgan failure. (13) Multifocal pneumonia Status: Acute Assessment & Plan: Possible bacterial component with COVID19, on zosyn and vancomycin (14) CKD (chronic kidney disease) Status: Chronic (15) Hypertension Status: Chronic Assessment & Plan: Hypotensive since arrival. Qualifiers: Qualified Codes: I10 - Essential (primary) hypertension (16) Hypernatremia Status: Acute (17) DVT prophylaxis Status: Acute Assessment & Plan: No pharmacologic due to drastic drop in platelets, decreasing hemoglobin and grossly bloody NG drainage. (18) Goals of care, counseling/discussion Status: Acute Assessment & Plan: 03/28- Spoke with sister Ashley and updated on status, she expressed the family continued to want to pursue aggressive care (other than they would not want him to be coded again) for 3 days and then at that time will decide on goals of care. 03/29- updated Ashley on continued poor condition and worsening kidney function, etc, she states family is not ready to change goals to comfort, offered to have family meeting and scheduled for 11 am tomorrow. 03/30- family meeting today, met with multiple sisters, brother and [id number], discussed current status and they state they understand the situation and agree comfort care is likely the best plan, but his mother has asked them to wait longer and they want to respect her wishes. They will continue to discuss with her. Brother to visit patient shortly to have a better idea of how he is doing to help with decision making. Discussed the risk that he may have an acute event that leads to before changing to comfort care which may preclude the ability to see him prior to , and they stated they understand and will let us know if they are ready to change his status. MARLEY VELASCO MD Mar 30, 2021 11:13
[2021-03-30] MEDS: PIPERACILLIN SODIUM/TAZOBACTAM 4.5 GM in NS (IVPB) 100 ML IV SCH (12:06)
[2021-03-30 14:35] VITALS: BP 100/71
[2021-03-30 18:36] VITALS: BP 105/51
[2021-03-30 21:40] VITALS: BP 112/52
[2021-03-31] MEDS: PROPOFOL DRIP (ICU) 100 ML IV SCH ×4 (00:19→22:50)
[2021-03-31] MEDS: PIPERACILLIN SODIUM/TAZOBACTAM 4.5 GM in NS (IVPB) 100 ML IV SCH ×3 (00:19→22:00)
[2021-03-31] MEDS: inSUlin ASPART (NovoLOG) 1 UNIT/0.01 ML (CHARGE PER UNIT) SC SCH ×4 (00:41→18:20)
[2021-03-31 02:25] VITALS: BP 107/55
[2021-03-31] MEDS: RT-ALBUTEROL HFA 8.5 GM INHALER IH SCH ×6 (02:25→22:24)
[2021-03-31 04:59] LABS: EOSINOPHILS % (AUTO) 0 % (0-10); HEMATOCRIT 25 % (40-54)
[2021-03-31 05:00] LABS: ABG OXYGEN SATURATION 83 % (94-100); ABG PCO2 36 MMHG (35-45); ABG PH 7.59 (7.37-7.43); ABG PO2 42 MMHG (79-93); ABG TCO2 36.4 MMOL/L (21.0-31.0)
[2021-03-31 05:01] LABS: BASOPHILS % (AUTO) 0 % (0-10); HEMOGLOBIN 8.5 g/dL (13.3-17.7); LYMPHOCYTES # (AUTO) 0.6 10^3/uL (1.0-4.0); LYMPHOCYTES % (AUTO) 3 % (12-44); MEAN CORPUSCULAR HEMOGLOBIN 30 pg (25-34); MEAN CORPUSCULAR HGB CONC 34 g/dL (32-36); MEAN CORPUSCULAR VOLUME 89 fL (80-99); MONOCYTES # (AUTO) 0.4 10^3/uL (0.0-1.0); MONOCYTES % (AUTO) 2 % (0-12); NEUTROPHILS # (AUTO) 19.4 10^3/uL (1.8-7.8); NEUTROPHILS % (AUTO) 93 % (42-75); PLATELET COUNT 46 10^3/uL (130-400); WHITE BLOOD COUNT 20.8 10^3/uL (4.3-11.0)
[2021-03-31 05:05] LABS: INSPIRED O2 40
[2021-03-31 05:06] LABS: ALLENS TEST POSITIVE; PATIENT TEMP 35.9; VENTILATOR YES
[2021-03-31 05:17] LABS: ALBUMIN 1.8 GM/DL (3.2-4.5)
[2021-03-31 05:19] LABS: TOTAL PROTEIN 4.7 GM/DL (6.4-8.2)
[2021-03-31 05:21] LABS: BILIRUBIN,TOTAL 1.1 MG/DL (0.1-1.0)
[2021-03-31 05:23] LABS: CREATININE SERUM 7.52 MG/DL (0.60-1.30); PHOSPHORUS 6.8 MG/DL (2.3-4.7)
[2021-03-31 05:26] LABS: MAGNESIUM 2.3 MG/DL (1.6-2.4)
[2021-03-31] MEDS: MAGNESIUM 1 GM/100 ML IVPB 100 ML IV SCH (06:29)
[2021-03-31] MEDS: POTASSIUM CL 10MEQ/50ML IVPB 50 ML IV SCH (06:29)
[2021-03-31] MEDS: KCL 20 MEQ TAB (K-DUR) PO SCH (06:30)
[2021-03-31] MEDS: NOREPINEPHRINE 8 MG/250 ML 250 ML IV SCH ×2 (07:02→13:20)
[2021-03-31 07:08] VITALS: BP 123/59
[2021-03-31] MEDS: PANTOPRAZOLE 40 MG (PROTONIX) VIAL IV SCH (09:11)
[2021-03-31 10:38] VITALS: BP 107/52
--- NOTE | 2021-03-31 11:30 | Tele-ICU Progress Note ---
Subjective Date Seen by a Provider: Mar 31, 2021 Time Seen by a Provider: 11:29 Sepsis Event Evaluation Height, Weight, BMI Height: 5'2.00" Weight: 150lbs. 11.6oz. 68.951612mn; 26.72 BMI Method:Stated Exam Exam Patient acknowledged, consented, and participated in this virtual visit which was conducted using real time audio/video Vital Signs Date Time Temp Pulse Resp B/P (MAP) Pulse Ox O2 Delivery O2 Flow Rate FiO2 03/31/21 10:38 63 25 91 40 03/31/21 10:00 65 25 92/44 90 Mechanical Ventilator 45.00 03/31/21 09:08 96 Mechanical Ventilator 40 03/31/21 09:00 64 24 89/43 95 Mechanical Ventilator 45.00 03/31/21 08:00 70 25 106/54 96 Mechanical Ventilator 45.00 03/31/21 08:00 35.9 03/31/21 07:08 68 25 94 40 03/31/21 07:00 65 25 104/53 95 Mechanical Ventilator 45.00 03/31/21 07:00 64 03/31/21 06:00 70 25 108/56 97 Mechanical Ventilator 45.00 03/31/21 05:00 66 25 100/52 95 Mechanical Ventilator 45.00 03/31/21 04:00 72 24 101/52 95 Mechanical Ventilator 45.00 03/31/21 04:00 95 Mechanical Ventilator 40 03/31/21 03:00 71 25 114/50 93 Mechanical Ventilator 45.00 03/31/21 02:25 69 25 94 40 03/31/21 02:00 72 24 110/54 96 Mechanical Ventilator 45.00 03/31/21 01:00 68 25 114/53 95 Mechanical Ventilator 45.00 03/31/21 01:00 68 03/31/21 00:42 97/47 03/31/21 00:42 35.9 96 Mechanical Ventilator 45.00 03/31/21 00:19 109/53 03/31/21 00:00 73 25 109/53 97 Mechanical Ventilator 50.00 03/31/21 00:00 97 Mechanical Ventilator 50 03/30/21 23:00 73 25 109/53 95 Mechanical Ventilator 50.00 03/30/21 22:00 73 25 112/53 97 Mechanical Ventilator 50.00 03/30/21 21:40 72 25 96 50 03/30/21 21:19 36.0 95 Mechanical Ventilator 50.00 03/30/21 21:00 73 25 108/58 96 Mechanical Ventilator 60.00 03/30/21 20:00 95 Mechanical Ventilator 50 03/30/21 20:00 70 25 112/50 96 Mechanical Ventilator 60.00 03/30/21 19:00 67 03/30/21 19:00 67 25 107/66 96 Mechanical Ventilator 60.00 03/30/21 18:53 Mechanical Ventilator 50.00 03/30/21 18:36 67 26 95 50 03/30/21 18:01 74 25 113/56 95 Mechanical Ventilator 60.00 03/30/21 17:00 73 25 115/57 100 Mechanical Ventilator 60.00 03/30/21 16:27 94 Mechanical Ventilator 60 03/30/21 16:00 73 25 119/57 100 Mechanical Ventilator 60.00 03/30/21 15:37 36.3 03/30/21 15:00 75 24 111/55 100 Mechanical Ventilator 60.00 03/30/21 14:35 73 25 96 60 03/30/21 14:00 76 24 113/56 97 Mechanical Ventilator 60.00 03/30/21 13:00 75 25 109/54 94 Mechanical Ventilator 60.00 03/30/21 13:00 77 03/30/21 12:00 76 25 120/57 95 Mechanical Ventilator 60.00 03/30/21 12:00 94 Mechanical Ventilator 60 03/30/21 12:00 36.0 I & O 03/31/21 07:00 Intake Total 1400 ml Output Total 1775 ml Balance -375 ml Height & Weight Height: 5'2.00" Weight: 150lbs. 11.6oz. 68.887116xz; 26.72 BMI Method:Stated General Appearance: Chronically ill, Other (intubated, unresponsive) HEENT: PERRL/EOMI, Pharynx Normal Neck: Full Range of Motion, Normal Inspection Respiratory: Lungs Clear, Normal Breath Sounds Cardiovascular: Regular Rate, Rhythm Capillary Refill: Less Than 3 Seconds Extremity: Slow Capillary Refill, Other (Acrocyanosis all 4 extremities) Neurologic/Psychiatric: Other (3T GCS) Skin: Cyanosis, Damp, Diaphoresis Results Lab Laboratory Tests 03/30/21 04:30 03/31/21 04:43 Assessment/Plan Assessment/Plan (Tele-ICU Physician , Progress Note ) Available chart/ vitals / labs / Images reviewed Video assessment done using teleICU camera, rest of exam as per RN Discussed with RN , EXAM PER RN Events overnight : FEBRILE FiO2 - 80 I/O = pos Drips: bicarb 150 Pressors: LEVO Sedation gtt: propofol 20 ( RASS -1 ) VENT SETTINGS and ABG reviewed Not candidate for SBT today REVIEWED Cardiovascular Stability / Sedation Score / FI02/PEEP / ABG / CXR Consultants: Hospital course: 03/26- 66 yo M known to have Developmental delay, NIDDM, HTN, arrested at home , on 3 pressors, epi, levo, vaso, severly acidotic A/P Acute resp failure - intubated 03/26 , 40 % today Shock - levo , to wean CHRISSY - off bicarb - WORSENING, Cr> 7 - K is not elevated ( GI loss with diarrhea - monitor , HD is not available COVID 19 - decadrone IV -Zosyn / vanco - WORSENING of leukocytosis , Blood cx MSSA - s/p cardiac arrest s/p epinephrine with ROSC - as per cards Encephalopaty - post arrest - decrease sedation - attempts leads to significant tachycardia and vent asynchrony - but no respons on minimal sedation ? anoxic brain damage DM with acute DKA - off insulin drip -ISS Thrombocytopenia - was not on heparin - will not check HIPA - will order DIC w/up if cont agressibe care-? consulmption - ? PE - will not change management coordinator now ( severe thrombocytopenia , ? brain damage , CHRISSY - coffee ground in NG - better , no acute bleed PROGNOSIS POOR WITH MOF PER RN , FAMIL;Y MEETING IS SCHEDULED FOR 11 - WILL FOLLOW Lines : R IJ (Central Line Necessity Reviewed) Elizondo: + OG: + Nutrition: Analgesia: Anxiety/ delirium VTE Prophylaxis: Stress Ulcer Prophylaxis: ppi Glycemic Control: Plans in collaboration with bedside consultants and IM MDs. Discussed with RN to reach out if any questions or concerns A total of35 minutes of critical care time was devoted to this patient today, required to treat and/or prevent further deterioration of critical care condition ( as above) . SHANIA THACKER MD Mar 31, 2021 11:30
[2021-03-31 14:33] VITALS: BP 108/55
--- NOTE | 2021-03-31 14:56 | Progress Note ---
Subjective Subjective/Events-last exam Afebrile, no meaningful reponses, even when brother visited yesterday. Having worsening diarrhea. Objective Exam Last Set of Vital Signs Vital Signs Date Time Temp Pulse Resp B/P (MAP) Pulse Ox O2 Delivery O2 Flow Rate FiO2 03/31/21 14:41 Mechanical Ventilator 40.00 03/31/21 14:38 40 03/31/21 14:33 69 25 92 03/31/21 14:00 108/55 03/31/21 11:30 36.2 Capillary Refill : Less Than 3 Seconds I&O Intake and Output 03/31/21 00:00 Intake Total 1200 ml Output Total 1320 ml Balance -120 ml Intake Oral 0 ml IV Total 1200 ml Output Urine Total 720 ml Gastric Drainage Total 600 ml # Bowel Movements 3 General: Other (sedated, intubated) Lungs: Clear to Auscultation, Normal Air Movement Heart: Regular Rate, No Murmurs Abdomen: Other (hypoactive bowel sounds, distended) Extremities: Other (cold, cyanotic hands and feet) Results/Procedures Lab Laboratory Tests 03/30/21 18:30: Glucometer 260H 03/31/21 00:14: Glucometer 283H 03/31/21 04:43: White Blood Count 20.8H, Red Blood Count 2.81L, Hemoglobin 8.5L, Hematocrit 25L, Mean Corpuscular Volume 89, Mean Corpuscular Hemoglobin 30, Mean Corpuscular Hemoglobin Concent 34, Red Cell Distribution Width 14.3, Platelet Count 46L, Mean Platelet Volume , Immature Granulocyte % (Auto) 2, Neutrophils (%) (Auto) 93H, Lymphocytes (%) (Auto) 3L, Monocytes (%) (Auto) 2, Eosinophils (%) (Auto) 0, Basophils (%) (Auto) 0, Neutrophils # (Auto) 19.4H, Lymphocytes # (Auto) 0.6L , Monocytes # (Auto) 0.4, Eosinophils # (Auto) 0.0, Basophils # (Auto) 0.0, Imm ature Granulocyte # (Auto) 0.4H, Percent Immature Platelet Fraction 13.3H, Sodium Level 152H, Potassium Level 4.0, Chloride Level 97L, Carbon Dioxide Level 30, Anion Gap 25H, Blood Urea Nitrogen 126*H, Creatinine 7.52#H, Estimat Glomerular Filtration Rate 7, BUN/Creatinine Ratio 17, Glucose Level 345H, Calcium Level 5.0*L, Corrected Calcium 6.8L, Phosphorus Level 6.8H, Magnesium Level 2.3, Total Bilirubin 1.1H, Aspartate Amino Transf (AST/SGOT) 52H, Alanine Aminotransferase (ALT/SGPT) 78H, Alkaline Phosphatase 120, Total Protein 4.7L, Albumin 1.8L 03/31/21 04:45: Blood Gas Puncture Site RIGHT RADIAL, Blood Gas Patient Temperature 35.9, Arterial Blood pH 7.59H, Arterial Blood Partial Pressure CO2 36, Arterial Blood Partial Pressure O2 42L, Arterial Blood HCO3 35H, Arterial Blood Total CO2 36.4H , Arterial Blood Oxygen Saturation 83L, Arterial Blood Base Excess 12.0H, Norm Test POSITIVE, Blood Gas Ventilator Setting YES, Blood Gas Inspired Oxygen 40 03/31/21 11:24: Glucometer 260H Microbiology 03/26/21 Blood Culture - Preliminary, Resulted No growth 03/26/21 Urine Culture - Final, Complete NO GROWTH 03/26/21 MRSA Screen - Final, Complete MRSA not isolated Assessment/Plan Assessment/Plan (1) Cardiopulmonary arrest Status: Acute Assessment & Plan: Witnessed at home, s/p epi x 3 by EMS. Appreciate [facility] ICU recommendations. No meaningful responses to this point, family initially requested to wait 3 days after admit and reassess. 2/2- no change in status, has vital sign abnormalities/vent asynchrony when sedation is decreased, but no meaningful movement or response. 2/3- no change in neurologic status (2) COVID-19 Status: Acute Assessment & Plan: Had Moderna vaccine on 06/22 and 2020. On dexamethasone day 6. (3) Acute respiratory failure Status: Acute Assessment & Plan: Secondary to COVID19 and possibly bacterial pneumonia. Requiring mechanical ventilation, s/p cardiorespiratory arrest. Appreciate [facility] ICU management. Qualifiers: Qualified Codes: J96.01 - Acute respiratory failure with hypoxia; J96.02 - Acute respiratory failure with hypercapnia (4) Hyperglycemia Status: Acute Assessment & Plan: On insulin drip initially. Had marked hypoglycemia, now back in the 200s, off of insulin drip for now. (5) Liver injury Status: Acute Assessment & Plan: Secondary to hypoxia/cardiovascular collapse. Improving. Qualifiers: Qualified Codes: S36.119A - Unspecified injury of liver, initial encounter (6) Transaminitis Status: Acute (7) Acute kidney injury Status: Acute Assessment & Plan: Secondary to hypotension/cardiovascular collapse. Baseline creatinine around 1.35-1.40 per labs in May 2020 in clinic. Worsening in spite of blood pressure support and IVF. 03/29- continued worsening, creatinine up to 5.93 today, without hyperkalemia. 03/30- persistent worsening, creatinine above 6, still making some urine and no hyperkalemia as yet. Continued on bicarb. 03/31- persistently worsening, creatinine now above 7, bicarb discontinued, has metabolic alkalosis, likely related to diarrhea. Potassium remains normal. (8) Lactic acidosis Status: Acute Assessment & Plan: Secondary to cardiovascular collapse. (9) Respiratory acidosis with metabolic acidosis Status: Resolved (10) Diabetes mellitus, type 2 Status: Chronic Assessment & Plan: Last A1c in clinic 05/2020 was over 9, lost to follow up per diabetes team. Qualifiers: Qualified Codes: E11.65 - Type 2 diabetes mellitus with hyperglycemia (11) Thrombocytopenia Status: Acute (12) Coagulopathy Status: Acute Assessment & Plan: Elevated INR and markedly elevated D dimer secondary to multiorgan failure. (13) Multifocal pneumonia Status: Acute Assessment & Plan: Possible bacterial component with COVID19, on zosyn and vancomycin (14) CKD (chronic kidney disease) Status: Chronic (15) Hypertension Status: Chronic Assessment & Plan: Hypotensive since arrival. Qualifiers: Qualified Codes: I10 - Essential (primary) hypertension (16) Hypernatremia Status: Acute Assessment & Plan: Persistently worsening, in renal failure. (17) Metabolic alkalosis Status: Acute Assessment & Plan: Daily elevating pH, up to 7.52 today, suspect due to diarrhea. (18) Diarrhea Status: Acute Assessment & Plan: Suspect secondary to multiorgan failure and intestinal gigi bsorption. Qualifiers: Qualified Codes: K90.9 - Intestinal malabsorption, unspecified; R19.7 - Diarrhea, unspecified (19) DVT prophylaxis Status: Acute Assessment & Plan: No pharmacologic due to drastic drop in platelets, decreasing hemoglobin and grossly bloody NG drainage. (20) Goals of care, counseling/discussion Status: Acute Assessment & Plan: 03/28- Spoke with sister Ashley and updated on status, she expressed the family continued to want to pursue aggressive care (other than they would not want him to be coded again) for 3 days and then at that time will decide on goals of care. 03/29- updated Ashley on continued poor condition and worsening kidney function, etc, she states family is not ready to change goals to comfort, offered to have family meeting and scheduled for 11 am tomorrow. 03/30- family meeting today, met with multiple sisters, brother and brothers-in- law, discussed current status and they state they understand the situation and agree comfort care is likely the best plan, but his mother has asked them to wait longer and they want to respect her wishes. They will continue to discuss with her. Brother to visit patient shortly to have a better idea of how he is doing to help with decision making. Discussed the risk that he may have an acute event that leads to before changing to comfort care which may preclude the ability to see him prior to , and they stated they understand and will let us know if they are ready to change his status. 03/31- updated Ashley this morning on persistently worsening kidney failure, GI system failure, neurologic abnormalities, she stated she will talk to his mother today and let us know. MARLEY VELASCO MD Mar 31, 2021 14:56
[2021-03-31 18:45] VITALS: BP 108/55
[2021-03-31 22:24] VITALS: BP 106/51
[2021-04-01] MEDS: inSUlin ASPART (NovoLOG) 1 UNIT/0.01 ML (CHARGE PER UNIT) SC SCH ×4 (00:07→18:25)
[2021-04-01 02:26] VITALS: BP 114/60
[2021-04-01] MEDS: RT-ALBUTEROL HFA 8.5 GM INHALER IH SCH ×6 (02:26→22:21)
[2021-04-01 04:05] LABS: ABG BASE EXCESS 9.7 MMOL/L (-2.5-2.5); ABG OXYGEN SATURATION 91 % (94-100); ABG PCO2 36 MMHG (35-45); ABG PH 7.57 (7.37-7.43); ABG PO2 60 MMHG (79-93); ABG TCO2 33.6 MMOL/L (21.0-31.0); BASOPHILS % (AUTO) 0 % (0-10); EOSINOPHILS % (AUTO) 0 % (0-10); HEMOGLOBIN 8.2 g/dL (13.3-17.7); MONOCYTES # (AUTO) 0.3 10^3/uL (0.0-1.0); MONOCYTES % (AUTO) 1 % (0-12)
[2021-04-01 04:07] LABS: ALLENS TEST POSITIVE; EOSINOPHILS # (AUTO) 0.1 10^3/uL (0.0-0.3); HEMATOCRIT 25 % (40-54); INSPIRED O2 6; LYMPHOCYTES # (AUTO) 0.8 10^3/uL (1.0-4.0); LYMPHOCYTES % (AUTO) 4 % (12-44); MEAN CORPUSCULAR HEMOGLOBIN 30 pg (25-34); MEAN CORPUSCULAR HGB CONC 33 g/dL (32-36); MEAN CORPUSCULAR VOLUME 90 fL (80-99); NEUTROPHILS # (AUTO) 18.9 10^3/uL (1.8-7.8); NEUTROPHILS % (AUTO) 92 % (42-75); PATIENT TEMP 37.7; PLATELET COUNT 53 10^3/uL (130-400); VENTILATOR YES; WHITE BLOOD COUNT 20.5 10^3/uL (4.3-11.0)
[2021-04-01 04:15] LABS: POTASSIUM 4.1 MMOL/L (3.6-5.0)
[2021-04-01 04:16] LABS: ALBUMIN 1.8 GM/DL (3.2-4.5)
[2021-04-01 04:19] LABS: TOTAL PROTEIN 4.6 GM/DL (6.4-8.2)
[2021-04-01 04:20] LABS: BILIRUBIN,TOTAL 1.1 MG/DL (0.1-1.0)
[2021-04-01 04:21] LABS: PHOSPHORUS 7.3 MG/DL (2.3-4.7)
[2021-04-01 04:22] LABS: CREATININE SERUM 8.72 MG/DL (0.60-1.30)
[2021-04-01 04:25] LABS: MAGNESIUM 2.6 MG/DL (1.6-2.4)
[2021-04-01 04:37] LABS: CALCIUM 4.6 MG/DL (8.5-10.1)
[2021-04-01] MEDS: KCL 20 MEQ TAB (K-DUR) PO SCH (04:46)
[2021-04-01] MEDS: MAGNESIUM 1 GM/100 ML IVPB 100 ML IV SCH (04:46)
[2021-04-01] MEDS: POTASSIUM CL 10MEQ/50ML IVPB 50 ML IV SCH (04:46)
[2021-04-01 07:28] VITALS: BP 97/48
[2021-04-01] MEDS: PANTOPRAZOLE 40 MG (PROTONIX) VIAL IV SCH (08:10)
--- NOTE | 2021-04-01 10:36 | Tele-ICU Progress Note ---
Subjective Date Seen by a Provider: Apr 01, 2021 Time Seen by a Provider: 10:35 Sepsis Event Evaluation Height, Weight, BMI Height: 5'2.00" Weight: 150lbs. 11.6oz. 68.902099xs; 26.72 BMI Method:Stated Exam Exam Patient acknowledged, consented, and participated in this virtual visit which was conducted using real time audio/video Vital Signs Date Time Temp Pulse Resp B/P (MAP) Pulse Ox O2 Delivery O2 Flow Rate FiO2 04/01/21 10:00 80 25 133/58 96 Mechanical Ventilator 50.00 04/01/21 09:00 80 24 119/56 100 Mechanical Ventilator 50.00 04/01/21 08:16 100 Mechanical Ventilator 50 04/01/21 08:16 50 04/01/21 08:00 38.1 04/01/21 08:00 78 24 96/49 98 Mechanical Ventilator 50.00 04/01/21 07:28 77 25 88 50 04/01/21 07:00 77 04/01/21 07:00 76 25 104/50 89 Mechanical Ventilator 50.00 04/01/21 06:00 75 24 106/49 90 Mechanical Ventilator 50.00 04/01/21 05:00 74 25 102/52 96 Mechanical Ventilator 50.00 04/01/21 04:03 Mechanical Ventilator 50.00 04/01/21 04:00 97 Mechanical Ventilator 50 04/01/21 04:00 50 04/01/21 04:00 78 25 104/48 98 Mechanical Ventilator 60.00 04/01/21 03:15 37.7 Mechanical Ventilator 60.00 04/01/21 03:00 78 24 98/46 98 Mechanical Ventilator 60.00 04/01/21 02:26 75 25 96 60 04/01/21 02:00 77 25 114/60 94 Mechanical Ventilator 60.00 04/01/21 01:00 77 25 104/50 93 Mechanical Ventilator 60.00 04/01/21 01:00 77 04/01/21 00:00 60 04/01/21 00:00 79 26 104/49 93 Mechanical Ventilator 60.00 04/01/21 00:00 93 Mechanical Ventilator 60 03/31/21 23:50 37.4 Mechanical Ventilator 60.00 03/31/21 23:00 78 26 108/51 94 Mechanical Ventilator 60.00 2/3/22 22:50 79 106/51 03/31/21 22:50 79 106/51 03/31/21 22:24 79 26 94 70 03/31/21 22:00 78 25 106/51 95 Mechanical Ventilator 60.00 03/31/21 21:00 76 25 106/51 96 Mechanical Ventilator 60.00 03/31/21 20:20 60 03/31/21 20:00 96 Mechanical Ventilator 60 03/31/21 20:00 37.0 03/31/21 20:00 37.0 73 25 109/53 94 Mechanical Ventilator 60.00 03/31/21 19:00 Mechanical Ventilator 60.00 03/31/21 19:00 72 03/31/21 19:00 72 25 104/52 96 Mechanical Ventilator 60.00 03/31/21 18:45 71 25 94 70 03/31/21 18:30 Mechanical Ventilator 60.00 03/31/21 18:00 71 25 102/47 91 Mechanical Ventilator 40.00 03/31/21 17:00 73 25 104/46 91 Mechanical Ventilator 40.00 03/31/21 16:15 88 Mechanical Ventilator 50 03/31/21 16:00 72 25 96/47 88 Mechanical Ventilator 40.00 03/31/21 16:00 36.5 03/31/21 15:00 73 24 97/49 88 Mechanical Ventilator 40.00 03/31/21 14:41 Mechanical Ventilator 40.00 03/31/21 14:38 40 03/31/21 14:33 69 25 92 45 03/31/21 14:04 Mechanical Ventilator 45.00 03/31/21 14:00 68 25 108/55 92 Mechanical Ventilator 50.00 03/31/21 13:20 65 87/44 03/31/21 13:20 65 87/44 03/31/21 13:20 65 87/44 03/31/21 13:00 66 25 113/57 95 Mechanical Ventilator 50.00 03/31/21 13:00 66 03/31/21 12:00 67 24 108/55 92 Mechanical Ventilator 50.00 03/31/21 11:31 Mechanical Ventilator 50.00 03/31/21 11:31 88 Mechanical Ventilator 50 03/31/21 11:30 36.2 03/31/21 11:00 65 26 111/56 90 Mechanical Ventilator 45.00 03/31/21 10:38 63 25 91 40 I & O 04/01/21 07:00 Intake Total 360 ml Output Total 2050 ml Balance -1690 ml Height & Weight Height: 5'2.00" Weight: 150lbs. 11.6oz. 68.697553cg; 26.72 BMI Method:Stated General Appearance: Chronically ill, Other (intubated, unresponsive) HEENT: PERRL/EOMI, Pharynx Normal Neck: Full Range of Motion, Normal Inspection Respiratory: Lungs Clear, Normal Breath Sounds Cardiovascular: Regular Rate, Rhythm Capillary Refill: Greater Than 3 Seconds Extremity: Slow Capillary Refill, Other (Acrocyanosis all 4 extremities) Neurologic/Psychiatric: Other (3T GCS) Skin: Cyanosis, Damp, Diaphoresis Results Lab Laboratory Tests 03/31/21 04:43 04/01/21 03:55 Assessment/Plan Assessment/Plan (Tele-ICU Physician , Progress Note ) Available chart/ vitals / labs / Images reviewed Video assessment done using teleICU camera, rest of exam as per RN Discussed with RN , EXAM PER RN Events overnight : FEBRILE FiO2 - 50 I/O = pos Drips: Pressors: LEVO Sedation gtt: propofol 20 ( RASS -1 ) VENT SETTINGS and ABG reviewed Not candidate for SBT today REVIEWED Cardiovascular Stability / Sedation Score / FI02/PEEP / ABG / CXR Consultants: Hospital course: 03/26- 66 yo M known to have Developmental delay, NIDDM, HTN, arrested at home , on 3 pressors, epi, levo, vaso, severly acidotic A/P Acute resp failure - intubated 03/26 , 50 % today Shock - levo , to wean CHRISSY - off bicarb - WORSENING CR - K is not elevated ( GI loss with diarrhea ? - monitor , HD is not available COVID 19 - decadrone IV -Zosyn / vanco - WORSENING of leukocytosis , Blood cx MSSA - s/p cardiac arrest s/p epinephrine with ROSC - as per cards Encephalopaty - post arrest - decrease sedation - attempts leads to significant tachycardia and vent asynchrony - but no respons on minimal sedation ? anoxic brain damage + uremia DM with acute DKA - off insulin drip -ISS Thrombocytopenia - was not on heparin - will not check HIPA -stable 50s - coffee ground in NG - better , no acute bleed PROGNOSIS POOR WITH MOF PER RN , FAMIL;Y MEETING IS SCHEDULED FOR - FOLLOW Lines : R IJ (Central Line Necessity Reviewed) Elizondo: + OG: + Nutrition: Analgesia: Anxiety/ delirium VTE Prophylaxis: Stress Ulcer Prophylaxis: ppi Glycemic Control: Plans in collaboration with bedside consultants and IM MDs. Discussed with RN to reach out if any questions or concerns A total of35 minutes of critical care time was devoted to this patient today, required to treat and/or prevent further deterioration of critical care condition ( as above) . SHANIA THACKER MD Apr 01, 2021 10:36
[2021-04-01 10:40] VITALS: BP 128/59
[2021-04-01] MEDS: PIPERACILLIN SODIUM/TAZOBACTAM 4.5 GM in NS (IVPB) 100 ML IV SCH (12:12)
--- NOTE | 2021-04-01 12:20 | Progress Note ---
Subjective Subjective/Events-last exam Afebrile, no change in neurologic status. Worsening diarrhea, worsening hypotension. Objective Exam Last Set of Vital Signs Vital Signs Date Time Temp Pulse Resp B/P (MAP) Pulse Ox O2 Delivery O2 Flow Rate FiO2 04/01/21 12:00 38.0 04/01/21 11:00 82 27 139/60 100 Mechanical Ventilator 40.00 04/01/21 10:40 40 Capillary Refill : Greater Than 3 Seconds I&O Intake and Output 04/01/21 00:00 Intake Total 430 ml Output Total 2165 ml Balance -1735 ml Intake Oral 0 ml IV Total 400 ml Other 30 ml Output Urine Total 490 ml Stool Total 1100 ml Gastric Drainage Total 575 ml General: Other (sedated, intubated) Lungs: Clear to Auscultation Heart: Regular Rate, No Murmurs Extremities: Other (cyanotic, cold, fingernails black) Results/Procedures Lab Laboratory Tests 03/31/21 18:17: Glucometer 260H 03/31/21 23:52: Glucometer 215H 04/01/21 03:55: White Blood Count 20.5H, Red Blood Count 2.72L, Hemoglobin 8.2L, Hematocrit 25L, Mean Corpuscular Volume 90, Mean Corpuscular Hemoglobin 30, Mean Corpuscular Hem oglobin Concent 33, Red Cell Distribution Width 14.8H, Platelet Count 53L, Mean Platelet Volume , Immature Granulocyte % (Auto) 2, Neutrophils (%) (Auto) 92H, Lymphocytes (%) (Auto) 4L, Monocytes (%) (Auto) 1, Eosinophils (%) (Auto) 0, Basophils (%) (Auto) 0, Neutrophils # (Auto) 18.9H, Lymphocytes # (Auto) 0.8L, Monocytes # (Auto) 0.3, Eosinophils # (Auto) 0.1, Basophils # (Auto) 0.0, Immature Granulocyte # (Auto) 0.5H, Percent Immature Platelet Fraction 10.4H, Blood Gas Puncture Site RIGHT RADIAL, Blood Gas Patient Temperature 37.7, Arterial Blood pH 7.57H, Arterial Blood Partial Pressure CO2 36, Arterial Blood Partial Pressure O2 60L, Arterial Blood HCO3 33H, Arterial Blood Total CO2 33.6H , Arterial Blood Oxygen Saturation 91L, Arterial Blood Base Excess 9.7H, Norm Test POSITIVE, Blood Gas Ventilator Setting YES, Blood Gas Inspired Oxygen 6, Sodium Level 153H, Potassium Level 4.1, Chloride Level 99, Carbon Dioxide Level 29, Anion Gap 25H, Blood Urea Nitrogen 167#*H, Creatinine 8.72#H, Estimat Glomerular Filtration Rate 6, BUN/Creatinine Ratio 19, Glucose Level 215H, Calcium Level 4.6*L, Corrected Calcium 6.4L, Phosphorus Level 7.3H, Magnesium Level 2.6H, Total Bilirubin 1.1H, Aspartate Amino Transf (AST/SGOT) 74H, Alanine Aminotransferase (ALT/SGPT) 68H, Alkaline Phosphatase 115, Total Protein 4.6L, Albumin 1.8L 04/01/21 12:11: Glucometer 141H Microbiology 03/26/21 Blood Culture - Preliminary, Resulted No growth 03/26/21 Urine Culture - Final, Complete NO GROWTH 03/26/21 MRSA Screen - Final, Complete MRSA not isolated Assessment/Plan Assessment/Plan (1) Cardiopulmonary arrest Status: Acute Assessment & Plan: Witnessed at home, s/p epi x 3 by EMS. Appreciate [facility] ICU recommendations. No meaningful responses to this point, family initially requested to wait 3 days after admit and reassess. 2/2- no change in status, has vital sign abnormalities/vent asynchrony when sedation is decreased, but no meaningful movement or response. 2/3- no change in neurologic status (2) COVID-19 Status: Acute Assessment & Plan: Had Moderna vaccine on 06/22 and 2020. On dexamethasone day 7. (3) Acute respiratory failure Status: Acute Assessment & Plan: Secondary to COVID19 and possibly bacterial pneumonia. Requiring mechanical ventilation, s/p cardiorespiratory arrest. Appreciate [facility] ICU management. Qualifiers: Qualified Codes: J96.01 - Acute respiratory failure with hypoxia; J96.02 - Acute respiratory failure with hypercapnia (4) Hyperglycemia Status: Acute Assessment & Plan: On insulin drip initially. Had marked hypoglycemia, now back in the 200s, off of insulin drip for now. (5) Liver injury Status: Acute Assessment & Plan: Secondary to hypoxia/cardiovascular collapse. Improved somewhat, stable with mild elevation. Qualifiers: Qualified Codes: S36.119A - Unspecified injury of liver, initial encounter (6) Transaminitis Status: Acute (7) Acute kidney injury Status: Acute Assessment & Plan: Secondary to hypotension/cardiovascular collapse. Baseline creatinine around 1.35-1.40 per labs in May 2020 in clinic. Worsening in spite of blood pressure support and IVF. 2/- continued worsening, creatinine up to 5.93 today, without hyperkalemia. 2/2- persistent worsening, creatinine above 6, still making some urine and no hyperkalemia as yet. Continued on bicarb. 2/3- persistently worsening, creatinine now above 7, bicarb discontinued, has metabolic alkalosis, likely related to diarrhea. Potassium remains normal. 2/- creatinine above 8, phosphorous and magnesium high, see goals of care. (8) Lactic acidosis Status: Acute Assessment & Plan: Secondary to cardiovascular collapse. (9) Respiratory acidosis with metabolic acidosis Status: Resolved (10) Diabetes mellitus, type 2 Status: Chronic Assessment & Plan: Last A1c in clinic 05/2020 was over 9, lost to follow up per diabetes team. Qualifiers: Qualified Codes: E11.65 - Type 2 diabetes mellitus with hyperglycemia (11) Thrombocytopenia Status: Acute (12) Coagulopathy Status: Acute Assessment & Plan: Elevated INR and markedly elevated D dimer secondary to multiorgan failure. (13) Multifocal pneumonia Status: Acute Assessment & Plan: Possible bacterial component with COVID19, on zosyn (14) CKD (chronic kidney disease) Status: Chronic (15) Hypertension Status: Chronic Assessment & Plan: Hypotensive since arrival. Qualifiers: Qualified Codes: I10 - Essential (primary) hypertension (16) Hypernatremia Status: Acute Assessment & Plan: Persistently worsening, in renal failure. (17) Metabolic alkalosis Status: Acute Assessment & Plan: Daily elevating pH, suspect due to diarrhea. (18) Diarrhea Status: Acute Assessment & Plan: Suspect secondary to multiorgan failure and intestinal malabsorption. Qualifiers: Qualified Codes: K90.9 - Intestinal malabsorption, unspecified; R19.7 - Diarrhea, unspecified (19) DVT prophylaxis Status: Acute Assessment & Plan: No pharmacologic due to drastic drop in platelets, decreasing hemoglobin and grossly bloody NG drainage. (20) Goals of care, counseling/discussion Status: Acute Assessment & Plan: 03/28- Spoke with sister Ashley and updated on status, she expressed the family continued to want to pursue aggressive care (other than they would not want him to be coded again) for 3 days and then at that time will decide on goals of care. 03/29- updated Ashley on continued poor condition and worsening kidney function, etc, she states family is not ready to change goals to comfort, offered to have family meeting and scheduled for 11 am tomorrow. 03/30- family meeting today, met with multiple sisters, brother and [id number], discussed current status and they state they understand the s ituation and agree comfort care is likely the best plan, but his mother has asked them to wait longer and they want to respect her wishes. They will continue to discuss with her. Brother to visit patient shortly to have a better idea of how he is doing to help with decision making. Discussed the risk that he may have an acute event that leads to before changing to comfort care which may preclude the ability to see him prior to , and they stated they understand and will let us know if they are ready to change his status. 03/31- updated Ashley this morning on persistently worsening kidney failure, GI system failure, neurologic abnormalities, she stated she will talk to his mother today and let us know. 04/01- updated Ashley on persistent worsening multi system failure and his cyanotic hands and feet and that I believe it is in his best interest to pursue comfort goals, and I am concerned that we are prolonging suffering and rather than making any improvements, she states she understands and will talk with his mother again today. (21) Hyperphosphatemia associated with renal failure Status: Acute (22) Hypermagnesemia Status: Acute (23) Hypocalcemia Status: Acute MARLEY VELASCO MD Apr 01, 2021 12:20
[2021-04-01 14:24] VITALS: BP 119/52
[2021-04-01] MEDS: NOREPINEPHRINE 8 MG/250 ML 250 ML IV SCH (16:25)
[2021-04-01 18:23] VITALS: BP 131/59
[2021-04-01 22:21] VITALS: BP 106/46
[2021-04-02] MEDS: PIPERACILLIN SODIUM/TAZOBACTAM 4.5 GM in NS (IVPB) 100 ML IV SCH ×2 (00:19→13:47)
[2021-04-02] MEDS: inSUlin ASPART (NovoLOG) 1 UNIT/0.01 ML (CHARGE PER UNIT) SC SCH ×4 (00:21→17:17)
[2021-04-02 02:52] VITALS: BP 104/53
[2021-04-02] MEDS: RT-ALBUTEROL HFA 8.5 GM INHALER IH SCH ×6 (02:52→22:24)
[2021-04-02] MEDS: NOREPINEPHRINE 8 MG/250 ML 250 ML IV SCH ×2 (03:42→18:36)
[2021-04-02 04:24] LABS: ABG BASE EXCESS 3.8 MMOL/L (-2.5-2.5); ABG OXYGEN SATURATION 69 % (94-100); ABG PCO2 39 MMHG (35-45); ABG PH 7.47 (7.37-7.43); ABG PO2 44 MMHG (79-93); ABG TCO2 28.3 MMOL/L (21.0-31.0)
[2021-04-02 04:26] LABS: BASOPHILS % (AUTO) 0 % (0-10); EOSINOPHILS # (AUTO) 0.6 10^3/uL (0.0-0.3); EOSINOPHILS % (AUTO) 2 % (0-10); HEMATOCRIT 26 % (40-54); HEMOGLOBIN 8.4 g/dL (13.3-17.7); LYMPHOCYTES # (AUTO) 1.2 10^3/uL (1.0-4.0); LYMPHOCYTES % (AUTO) 5 % (12-44); MEAN CORPUSCULAR HEMOGLOBIN 30 pg (25-34); MEAN CORPUSCULAR HGB CONC 33 g/dL (32-36); MEAN CORPUSCULAR VOLUME 93 fL (80-99); MONOCYTES # (AUTO) 0.3 10^3/uL (0.0-1.0); MONOCYTES % (AUTO) 1 % (0-12); NEUTROPHILS # (AUTO) 22.1 10^3/uL (1.8-7.8); NEUTROPHILS % (AUTO) 90 % (42-75); PLATELET COUNT 80 10^3/uL (130-400); WHITE BLOOD COUNT 24.6 10^3/uL (4.3-11.0)
[2021-04-02 04:27] LABS: ALLENS TEST YES-POS; INSPIRED O2 40%; PATIENT TEMP 38.1; VENTILATOR YES
[2021-04-02 04:39] LABS: ALBUMIN 1.8 GM/DL (3.2-4.5)
[2021-04-02 04:42] LABS: TOTAL PROTEIN 4.8 GM/DL (6.4-8.2)
[2021-04-02 04:43] LABS: BILIRUBIN,TOTAL 1.6 MG/DL (0.1-1.0)
[2021-04-02 04:45] LABS: CALCIUM 4.5 MG/DL (8.5-10.1); PHOSPHORUS 9.6 MG/DL (2.3-4.7)
[2021-04-02 04:46] LABS: CREATININE SERUM 10.67 MG/DL (0.60-1.30)
[2021-04-02 04:48] LABS: MAGNESIUM 2.8 MG/DL (1.6-2.4)
[2021-04-02 05:07] LABS: POTASSIUM 4.1 MMOL/L (3.6-5.0)
[2021-04-02] MEDS: POTASSIUM CL 10MEQ/50ML IVPB 50 ML IV SCH (05:59)
[2021-04-02] MEDS: MAGNESIUM 1 GM/100 ML IVPB 100 ML IV SCH (05:59)
[2021-04-02] MEDS: PROPOFOL DRIP (ICU) 100 ML IV SCH ×2 (05:59→15:15)
[2021-04-02] MEDS: KCL 20 MEQ TAB (K-DUR) PO SCH (05:59)
[2021-04-02] MEDS ORDERED: APAP 325 MG/10.15 ML LIQ (TYLENOL) UDC PO ONE (06:15)
[2021-04-02] MEDS ORDERED: APAP 325 MG/10.15 ML LIQ (TYLENOL) UDC ONE (06:18)
[2021-04-02 06:41] LABS: BILIRUBIN,URINE NEGATIVE (NEGATIVE); CLARITY,URINE CLEAR; COLOR,URINE YELLOW; GLUCOSE, URINE (UA) NEGATIVE (NEGATIVE); KETONES,URINE NEGATIVE (NEGATIVE); LEUKOCYTE ESTERASE ,URINE NEGATIVE (NEGATIVE); NITRITE,URINE NEGATIVE (NEGATIVE); PROTEIN,URINE 1+ (NEGATIVE)
[2021-04-02 06:48] VITALS: BP 96/42
--- NOTE | 2021-04-02 06:53 | Diagnostic Imaging Report ---
EXAMINATION: Chest radiograph, portable AP view. DATE: 04/02/2021 6:48 AM INDICATION: 66-year-old male, shortness of breath, cough. COVID positive. COMPARISON: March 26, 2021. FINDINGS: The endotracheal tube is approximately 3.7 cm above the sherif. The right internal jugular central venous line overlies the mid SVC. The nasogastric tube is in the stomach. Heart size and mediastinal contours are grossly unremarkable. There is no identified pneumothorax. There is multifocal alveolar consolidation bilaterally which is likely unchanged. There are right upper quadrant surgical clips. IMPRESSION: 1. Grossly unchanged multifocal bilateral lung consolidation. 2. Support lines and tubes as above. Dictated by: Dictated on workstation # [id number]
[2021-04-02 07:06] LABS: BACTERIA,URINE NEGATIVE /HPF; RBC,URINE 0-2 /HPF; WBC,URINE RARE /HPF
[2021-04-02] MEDS: PANTOPRAZOLE 40 MG (PROTONIX) VIAL IV SCH (08:26)
--- NOTE | 2021-04-02 09:54 | Progress Note - Hospitalist ---
Subjective HPI/CC On Admission Date Seen by Provider: Apr 02, 2021 Time Seen by Provider: 08:30 CC: Multi-system organ failure s/o cardiac arrest in ER s/p epinephrine HPI: This is a 66yoHM who presented to the ER in respiratory failure and elevated sugar and COVID-19 PNA. Patient had a cardiac arrest in the ER and ER obtained ROSC. Anoxia brain injury suspected since he has been off sedation and no spontaneous movement. Severely elevated sugars noted requiring insulin drip. Patient appears to be mottling and requiring 3 pressors to maintain MAP 60. I did speak to sister and she told me the family wants us to "wait 3 days to see if he comes out of it" and I explained that although he is DNR he appears to be mottling and likely will not survive another 3 days. We decided to maintain care as is. Subjective/Events-last exam Patient sedated on ventilator appears to be in no acute distress. Objective Exam Vital Signs Vital Signs Date Time Temp Pulse Resp B/P (MAP) Pulse Ox O2 Delivery O2 Flow Rate FiO2 04/02/21 09:00 38.4 86 25 107/50 95 Mechanical Ventilator 50.00 04/02/21 08:28 50 Capillary Refill : Greater Than 3 Seconds General Appearance: No Apparent Distress, Chronically ill Respiratory: Other (Coarse breath sounds throughout diminishment in the bases with rales) Cardiovascular: Regular Rate, Rhythm, No Murmur Results/Procedures Lab Laboratory Tests 04/02/21 04:15 Patient resulted labs reviewed. Assessment/Plan Assessment and Plan Assess & Plan/Chief Complaint Assessment & Plan: Secondary to hypotension/cardiovascular collapse. Baseline creatinine around 1.35-1.40 per labs in May 2020 in clinic. Worsening in spite of blood pressure support and IVF. 2/- continued worsening, creatinine up to 5.93 today, without hyperkalemia. 2/2- persistent worsening, creatinine above 6, still making some urine and no hyperkalemia as yet. Continued on bicarb. 2/3- persistently worsening, creatinine now above 7, bicarb discontinued, has metabolic alkalosis, likely related to diarrhea. Potassium remains normal. 2/- creatinine above 8, phosphorous and magnesium high, see goals of care. 04/02: Progressive multiorgan failure with acute kidney injury and underlying u remia patient actively dying with 0 chance for recovery this has been communicated with family for which comfort care and extubation were recommended mother has been resistant thus far but did advocate to DNR status. (8) Lactic acidosis Status: Acute Assessment & Plan: Secondary to cardiovascular collapse. (9) Respiratory acidosis with metabolic acidosis Status: Resolved (10) Diabetes mellitus, type 2 Status: Chronic Assessment & Plan: Last A1c in clinic 05/2020 was over 9, lost to follow up per diabetes team. Qualifiers: Qualified Codes: E11.65 - Type 2 diabetes mellitus with hyperglycemia (11) Thrombocytopenia Status: Acute (12) Coagulopathy Status: Acute Assessment & Plan: Elevated INR and markedly elevated D dimer secondary to multiorgan failure. (13) Multifocal pneumonia Status: Acute Assessment & Plan: Possible bacterial component with COVID19, on zosyn (14) CKD (chronic kidney disease) Status: Chronic (15) Hypertension Status: Chronic Assessment & Plan: Hypotensive since arrival. Qualifiers: Qualified Codes: I10 - Essential (primary) hypertension (16) Hypernatremia Status: Acute Assessment & Plan: Persistently worsening, in renal failure. (17) Metabolic alkalosis Status: Acute Assessment & Plan: Daily elevating pH, suspect due to diarrhea. (18) Diarrhea Status: Acute Assessment & Plan: Suspect secondary to multiorgan failure and intestinal malabsorption. Qualifiers: Qualified Codes: K90.9 - Intestinal malabsorption, unspecified; R19.7 - Diarrhea, unspecified (19) DVT prophylaxis Status: Acute Assessment & Plan: No pharmacologic due to drastic drop in platelets, decreasing hemoglobin and grossly bloody NG drainage. (20) Goals of care, counseling/discussion Status: Acute Assessment & Plan: 03/28- Spoke with sister Ashley and updated on status, she expressed the family continued to want to pursue aggressive care (other than they would not want him to be coded again) for 3 days and then at that time will decide on goals of care. 03/29- updated Ashley on continued poor condition and worsening kidney function, etc, she states family is not ready to change goals to comfort, offered to have family meeting and scheduled for 11 am tomorrow. 03/30- family meeting today, met with multiple sisters, brother and [id number], discussed current status and they state they understand the situation and agree comfort care is likely the best plan, but his mother has asked them to wait longer and they want to respect her wishes. They will continue to discuss with her. Brother to visit patient shortly to have a better idea of how he is doing to help with decision making. Discussed the risk that he may have an acute event that leads to before changing to comfort care which may preclude the ability to see him prior to , and they stated they understand and will let us know if they are ready to change his status. 2- updated Ashley this morning on persistently worsening kidney failure, GI system failure, neurologic abnormalities, she stated she will talk to his mother today and let us know. 04/01- updated Ashley on persistent worsening multi system failure and his cyanotic hands and feet and that I believe it is in his best interest to pursue comfort goals, and I am concerned that we are prolonging suffering and rather than making any improvements, she states she understands and will talk with his mother again today. (21) Hyperphosphatemia associated with renal failure Status: Acute (22) Hypermagnesemia Status: Acute (23) Hypocalcemia Status: Acute Critical Care Ventilator Management PADMINI BACA MD Apr 02, 2021 09:54
--- NOTE | 2021-04-02 10:03 | Tele-ICU Progress Note ---
Subjective Date Seen by a Provider: Apr 02, 2021 Time Seen by a Provider: 07:25 Subjective/Events-last exam This virtual visit was conducted using real time audio/video. Thank you for asking us to see this patient for respiratory insufficiency due to Covid pna with OOH arrest. Recent events: Levo increased. PE: sedated on vent. VSS HEENT: No obvious masses, adenopathy or JVD. Chest: clear to auscultation. CV: RRR S1 S2 No murmur or added sounds. Abd: Non-tender. Bowel sounds Y. : Unremarkable. Elizondo Y. INSTRUCTIONAL SYSTEMS SPECIALIST/psychiatric: Grossly intact. No obvious focal findings. Extremities: acrocyanosis Skin: unremarkable. Results: Elevated WCC 24.6, BUN 186, Creat 10.67. Decreased Hb 8.4. Alb 1.8, Ca 4.5. B.47/39/44. CXR: B infilts.. Available chart/ vitals / labs / images reviewed. Video assessment done using teleICU camera, rest of exam as per RN. A/P: Respiratory insufficiency: Continue present management with alb., vent. propofol Critical Care: Cont pressor, SSI, PPI, Zosyn, Dex. Agree patient should have comfort care status. D/W RN Marleni. Asked RN to reach out to eICU if any questions or concerns later. Time spent with patient/coordination of care with other health professionals (mins): 25 Review of Systems See free text Sepsis Event Evaluation Height, Weight, BMI Height: 5'2.00" Weight: 150lbs. 11.6oz. [id number]; 26.72 BMI Method:Stated Exam Exam Patient acknowledged, consented, and participated in this virtual visit which was conducted using real time audio/video Vital Signs Date Time Temp Pulse Resp B/P (MAP) Pulse Ox O2 Delivery O2 Flow Rate FiO2 04/02/21 09:00 38.4 86 25 107/50 95 Mechanical Ventilator 50.00 04/02/21 08:28 92 Mechanical Ventilator 50 04/02/21 08:28 50 04/02/21 08:00 38.5 85 25 105/46 93 Mechanical Ventilator 50.00 04/02/21 07:54 38.5 04/02/21 07:00 38.5 84 25 105/47 92 Mechanical Ventilator 50.00 04/02/21 07:00 83 04/02/21 06:49 38.6 04/02/21 06:48 81 25 92 50 04/02/21 06:19 38.4 04/02/21 06:08 90 Mechanical Ventilator 50.00 04/02/21 06:00 77 25 105/46 92 Mechanical Ventilator 40.00 04/02/21 05:00 79 24 102/46 97 Mechanical Ventilator 40.00 04/02/21 04:23 45 04/02/21 04:00 79 25 108/47 97 Mechanical Ventilator 40.00 04/02/21 04:00 95 Mechanical Ventilator 40 04/02/21 03:42 74/39 04/02/21 03:17 38.4 04/02/21 03:00 80 26 104/53 95 Mechanical Ventilator 40.00 04/02/21 02:52 80 27 95 40 04/02/21 02:00 80 26 108/50 93 Mechanical Ventilator 40.00 04/02/21 01:00 77 25 98/44 93 Mechanical Ventilator 40.00 04/02/21 01:00 81 04/02/21 00:42 38.6 04/02/21 00:40 40 04/02/21 00:39 95 Mechanical Ventilator 40 04/02/21 00:00 76 26 125/51 95 Mechanical Ventilator 40.00 04/01/21 23:00 80 26 123/51 95 Mechanical Ventilator 40.00 04/01/21 22:21 75 25 94 40 04/01/21 22:00 80 25 111/50 94 Mechanical Ventilator 40.00 04/01/21 22:00 40 04/01/21 21:00 81 26 118/51 84 Mechanical Ventilator 40.00 04/01/21 20:00 97 Mechanical Ventilator 40 04/01/21 20:00 40 04/01/21 20:00 78 24 118/53 88 Mechanical Ventilator 40.00 04/01/21 20:00 37.4 04/01/21 19:00 83 27 115/50 92 Mechanical Ventilator 40.00 04/01/21 19:00 84 04/01/21 18:23 78 25 97 40 04/01/21 18:00 73 24 109/49 100 Mechanical Ventilator 40.00 04/01/21 17:00 80 28 125/54 100 Mechanical Ventilator 40.00 04/01/21 16:10 37.5 04/01/21 16:00 80 26 106/52 94 Mechanical Ventilator 40.00 04/01/21 16:00 40 04/01/21 16:00 100 Mechanical Ventilator 40 04/01/21 15:00 77 26 114/49 98 Mechanical Ventilator 40.00 04/01/21 14:24 77 26 99 40 04/01/21 14:00 76 25 118/51 100 Mechanical Ventilator 40.00 04/01/21 13:00 77 25 127/53 100 Mechanical Ventilator 40.00 04/01/21 12:37 81 04/01/21 12:30 50 04/01/21 12:00 81 25 136/58 100 Mechanical Ventilator 40.00 04/01/21 12:00 38.0 04/01/21 12:00 100 Mechanical Ventilator 40 04/01/21 11:00 82 27 139/60 100 Mechanical Ventilator 40.00 04/01/21 10:45 Mechanical Ventilator 40.00 04/01/21 10:40 80 25 100 40 04/01/21 10:00 80 25 133/58 96 Mechanical Ventilator 50.00 I & O 04/02/21 07:00 Intake Total 350 ml Output Total 1490 ml Balance -1140 ml Height & Weight Height: 5'2.00" Weight: 150lbs. 11.6oz. 68.289111yu; 26.72 BMI Method:Stated General Appearance: No Apparent Distress, Chronically ill HEENT: PERRL/EOMI, Pharynx Normal Neck: Full Range of Motion, Normal Inspection Respiratory: Other (Coarse breath sounds throughout diminishment in the bases with rales) Cardiovascular: Regular Rate, Rhythm, No Murmur Capillary Refill: Greater Than 3 Seconds Extremity: Slow Capillary Refill, Other (Acrocyanosis all 4 extremities) Neurologic/Psychiatric: Other (3T GCS) Skin: Cyanosis, Damp, Diaphoresis Results Lab Laboratory Tests 04/01/21 03:55 04/02/21 04:15 Assessment/Plan Assessment/Plan See free text. Critical Care: Ventilator Management JOHANA LOPEZ MD Apr 02, 2021 10:03
[2021-04-02 11:34] VITALS: BP 108/52
[2021-04-02 15:07] VITALS: BP 106/47
[2021-04-02 18:32] VITALS: BP 73/39
[2021-04-02 22:24] VITALS: BP 109/48
[2021-04-03] MEDS: inSUlin ASPART (NovoLOG) 1 UNIT/0.01 ML (CHARGE PER UNIT) SC SCH ×4 (01:11→18:34)
[2021-04-03] MEDS: PROPOFOL DRIP (ICU) 100 ML IV SCH ×3 (01:11→22:07)
[2021-04-03] MEDS: RT-ALBUTEROL HFA 8.5 GM INHALER IH SCH ×6 (02:42→21:40)
[2021-04-03 02:43] VITALS: BP 102/46
[2021-04-03] MEDS: KCL 20 MEQ TAB (K-DUR) PO SCH (05:50)
[2021-04-03] MEDS: POTASSIUM CL 10MEQ/50ML IVPB 50 ML IV SCH (05:50)
[2021-04-03] MEDS: MAGNESIUM 1 GM/100 ML IVPB 100 ML IV SCH (05:50)
[2021-04-03 05:53] LABS: ABG BASE EXCESS 2.9 MMOL/L (-2.5-2.5); ABG OXYGEN SATURATION 97 % (94-100); ABG PCO2 33 MMHG (35-45); ABG PH 7.51 (7.37-7.43); ABG PO2 86 MMHG (79-93); ABG TCO2 26.7 MMOL/L (21.0-31.0)
[2021-04-03 05:58] LABS: ALLENS TEST YES-POS; INSPIRED O2 45%; PATIENT TEMP 37.8; VENTILATOR YES
[2021-04-03 06:01] LABS: BASOPHILS % (AUTO) 0 % (0-10)
[2021-04-03 06:03] LABS: EOSINOPHILS # (AUTO) 0.5 10^3/uL (0.0-0.3); EOSINOPHILS % (AUTO) 2 % (0-10); HEMATOCRIT 24 % (40-54); HEMOGLOBIN 7.9 g/dL (13.3-17.7); LYMPHOCYTES % (AUTO) 3 % (12-44); MEAN CORPUSCULAR HEMOGLOBIN 31 pg (25-34); MEAN CORPUSCULAR HGB CONC 33 g/dL (32-36); MEAN CORPUSCULAR VOLUME 92 fL (80-99); MONOCYTES # (AUTO) 0.5 10^3/uL (0.0-1.0); MONOCYTES % (AUTO) 2 % (0-12); NEUTROPHILS # (AUTO) 25.8 10^3/uL (1.8-7.8); NEUTROPHILS % (AUTO) 91 % (42-75); PLATELET COUNT 105 10^3/uL (130-400); WHITE BLOOD COUNT 28.3 10^3/uL (4.3-11.0)
[2021-04-03 06:11] LABS: ALBUMIN 1.8 GM/DL (3.2-4.5)
[2021-04-03 06:16] LABS: BILIRUBIN,TOTAL 1.6 MG/DL (0.1-1.0); CALCIUM 4.5 MG/DL (8.5-10.1)
[2021-04-03 06:17] LABS: CREATININE SERUM 12.35 MG/DL (0.60-1.30)
[2021-04-03 06:20] LABS: ANISOCYTOSIS MODERATE; EOSINOPHILS % (MANUAL) 4 %; HYPOCHROMASIA SLIGHT; LYMPHOCYTES % (MANUAL) 2 %; MONOCYTES % (MANUAL) 3 %; NEUTROPHILS % (MANUAL) 91 %
[2021-04-03 06:21] LABS: HELMET/BITE CELLS SLIGHT; MAGNESIUM 3.2 MG/DL (1.6-2.4)
[2021-04-03 06:58] VITALS: BP 84/41
[2021-04-03] MEDS: PANTOPRAZOLE 40 MG (PROTONIX) VIAL IV SCH (08:39)
--- NOTE | 2021-04-03 08:53 | Progress Note - Hospitalist ---
Subjective HPI/CC On Admission Date Seen by Provider: Apr 03, 2021 Time Seen by Provider: 07:00 CC: Multi-system organ failure s/o cardiac arrest in ER s/p epinephrine HPI: This is a 66yoHM who presented to the ER in respiratory failure and elevated sugar and COVID-19 PNA. Patient had a cardiac arrest in the ER and ER obtained ROSC. Anoxia brain injury suspected since he has been off sedation and no spontaneous movement. Severely elevated sugars noted requiring insulin drip. Patient appears to be mottling and requiring 3 pressors to maintain MAP 60. I did speak to sister and she told me the family wants us to "wait 3 days to see if he comes out of it" and I explained that although he is DNR he appears to be mottling and likely will not survive another 3 days. We decided to maintain care as is. Subjective/Events-last exam Patient sedated on vent appears to be in no acute distress Objective Exam Vital Signs Vital Signs Date Time Temp Pulse Resp B/P (MAP) Pulse Ox O2 Delivery O2 Flow Rate FiO2 04/03/21 08:00 37.3 79 25 88/43 96 Mechanical Ventilator 45.00 04/03/21 06:58 45 Capillary Refill : Greater Than 3 Seconds General Appearance: No Apparent Distress, Chronically ill Respiratory: Other (Coarse breath sounds anteriorly) Cardiovascular: Regular Rate, Rhythm, No Murmur Extremity: Other (2-3+ edema of all extremities lower extremities cool some early mottling indicative of progressive decline compared to yesterday) Results/Procedures Lab Laboratory Tests 04/03/21 05:40 Patient resulted labs reviewed. Assessment/Plan Assessment and Plan Assess & Plan/Chief Complaint Assessment & Plan: Secondary to hypotension/cardiovascular collapse. Baseline creatinine around 1.35-1.40 per labs in May 2020 in clinic. Worsening in spite of blood pressure support and IVF. 2/1- continued worsening, creatinine up to 5.93 today, without hyperkalemia. 2/2- persistent worsening, creatinine above 6, still making some urine and no hyperkalemia as yet. Continued on bicarb. 2/3- persistently worsening, creatinine now above 7, bicarb discontinued, has metabolic alkalosis, likely related to diarrhea. Potassium remains normal. 2/4- creatinine above 8, phosphorous and magnesium high, see goals of care. 2/5: Progressive multiorgan failure with acute kidney injury and underlying uremia patient actively dying with 0 chance for recovery this has been commu nicated with family for which comfort care and extubation were recommended mother has been resistant thus far but did advocate to DNR status. /6: Progressive uremia with all the attendant lab abnormalities to go along with this in the active stage of dying family still have not signed off on comfort care but are in agreement with DNR status. (8) Lactic acidosis Status: Acute Assessment & Plan: Secondary to cardiovascular collapse. (9) Respiratory acidosis with metabolic acidosis Status: Resolved (10) Diabetes mellitus, type 2 Status: Chronic Assessment & Plan: Last A1c in clinic 05/2020 was over 9, lost to follow up per diabetes team. Qualifiers: Qualified Codes: E11.65 - Type 2 diabetes mellitus with hyperglycemia (11) Thrombocytopenia Status: Acute (12) Coagulopathy Status: Acute Assessment & Plan: Elevated INR and markedly elevated D dimer secondary to multiorgan failure. (13) Multifocal pneumonia Status: Acute Assessment & Plan: Possible bacterial component with COVID19, on zosyn (14) CKD (chronic kidney disease) Status: Chronic (15) Hypertension Status: Chronic Assessment & Plan: Hypotensive since arrival. Qualifiers: Qualified Codes: I10 - Essential (primary) hypertension (16) Hypernatremia Status: Acute Assessment & Plan: Persistently worsening, in renal failure. (17) Metabolic alkalosis Status: Acute Assessment & Plan: Daily elevating pH, suspect due to diarrhea. (18) Diarrhea Status: Acute Assessment & Plan: Suspect secondary to multiorgan failure and intestinal malabsorption. Qualifiers: Qualified Codes: K90.9 - Intestinal malabsorption, unspecified; R19.7 - Diarrhea, unspecified (19) DVT prophylaxis Status: Acute Assessment & Plan: No pharmacologic due to drastic drop in platelets, decreasing hemoglobin and grossly bloody NG drainage. (20) Goals of care, counseling/discussion Status: Acute Assessment & Plan: 03/28- Spoke with sister Ashley and updated on status, she expressed the family continued to want to pursue aggressive care (other than they would not want him to be coded again) for 3 days and then at that time will decide on goals of care. 03/29- updated Ashley on continued poor condition and worsening kidney function, etc, she states family is not ready to change goals to comfort, offered to have family meeting and scheduled for 11 am tomorrow. 03/30- family meeting today, met with multiple sisters, brother and [id number], discussed current status and they state they understand the situation and agree comfort care is likely the best plan, but his mother has asked them to wait longer and they want to respect her wishes. They will continue to discuss with her. Brother to visit patient shortly to have a better idea of how he is doing to help with decision making. Discussed the risk that he may have an acute event that leads to before changing to comfort care which may preclude the ability to see him prior to , and they stated they understand and will let us know if they are ready to change his status. 03/31- updated Ashley this morning on persistently worsening kidney failure, GI system failure, neurologic abnormalities, she stated she will talk to his mother today and let us know. 04/01- updated Ashley on persistent worsening multi system failure and his cyanotic hands and feet and that I believe it is in his best interest to pursue comfort goals, and I am concerned that we are prolonging suffering and rather than making any improvements, she states she understands and will talk with his mother again today. (21) Hyperphosphatemia associated with renal failure Status: Acute (22) Hypermagnesemia Status: Acute (23) Hypocalcemia Status: Acute Critical Care Ventilator Management PADMINI BACA MD Apr 03, 2021 08:53
--- NOTE | 2021-04-03 08:59 | Tele-ICU Progress Note ---
Subjective Date Seen by a Provider: Apr 03, 2021 Time Seen by a Provider: 07:30 Subjective/Events-last exam This virtual visit was conducted using real time audio/video. Thank you for asking us to see this patient for respiratory insufficiency due to Covid pna with OOH arrest. Recent events: Levo increased. PE: sedated on vent. VSS. O2 sat 94% on 40%/+8 HEENT: No obvious masses, adenopathy or JVD. Chest: clear to auscultation. CV: RRR S1 S2 No murmur or added sounds. Abd: Non-tender. Bowel sounds Y. : Unremarkable. Elizondo Y. BUSINESS COORDINATOR/psychiatric: Grossly intact. No obvious focal findings. Extremities: acrocyanosis Skin: unremarkable. Results: Elevated WCC 28.3, BUN 213, Creat 12.35. Decreased Hb 7.9. Alb 1.8, Ca 4.5. B.51/33/86. CXR: B infilts.. Available chart/ vitals / labs / images reviewed. Video assessment done using teleICU camera, rest of exam as per RN. A/P: Respiratory insufficiency: Continue present management with alb., vent. propofol Critical Care: Cont pressor, SSI, PPI, Zosyn, Dex. Agree patient should have comfort care status. D/W RN Tisha. Asked RN to reach out to eICU if any questions or concerns later. Time spent with patient/coordination of care with other health p rofessionals (mins): 15 Review of Systems See free text Sepsis Event Evaluation Height, Weight, BMI Height: 5'2.00" Weight: 150lbs. 11.6oz. 68.030385to; 26.72 BMI Method:Stated Exam Exam Patient acknowledged, consented, and participated in this virtual visit which was conducted using real time audio/video Vital Signs Date Time Temp Pulse Resp B/P (MAP) Pulse Ox O2 Delivery O2 Flow Rate FiO2 04/03/21 08:00 37.3 79 25 88/43 96 Mechanical Ventilator 45.00 04/03/21 07:58 37.5 04/03/21 07:00 78 04/03/21 07:00 37.4 75 25 84/41 96 Mechanical Ventilator 45.00 04/03/21 06:58 77 25 96 45 2/6/22 06:00 37.6 75 25 100/47 96 Mechanical Ventilator 45.00 04/03/21 05:00 37.9 78 25 102/45 96 Mechanical Ventilator 45.00 04/03/21 04:15 Mechanical Ventilator 45.00 04/03/21 04:00 45 04/03/21 04:00 95 Mechanical Ventilator 50 04/03/21 04:00 37.4 78 24 106/46 96 Mechanical Ventilator 50.00 04/03/21 03:00 37.6 79 25 107/46 96 Mechanical Ventilator 50.00 04/03/21 02:43 79 25 97 50 04/03/21 02:00 38.4 75 25 110/49 97 Mechanical Ventilator 50.00 04/03/21 01:00 80 04/03/21 01:00 38.5 78 24 110/54 96 Mechanical Ventilator 50.00 04/03/21 00:30 50 04/03/21 00:00 38.5 78 25 115/47 96 Mechanical Ventilator 50.00 04/03/21 00:00 95 Mechanical Ventilator 50 04/02/21 23:00 38.5 79 24 115/49 96 Mechanical Ventilator 50.00 04/02/21 22:24 81 25 96 50 04/02/21 22:00 38.5 82 25 117/48 96 Mechanical Ventilator 50.00 04/02/21 21:00 38.5 82 25 117/50 95 Mechanical Ventilator 50.00 04/02/21 20:00 50 04/02/21 20:00 94 Mechanical Ventilator 50 04/02/21 20:00 38.5 83 25 110/49 96 Mechanical Ventilator 50.00 04/02/21 19:00 38.3 80 25 111/45 95 Mechanical Ventilator 50.00 04/02/21 19:00 81 04/02/21 18:36 80 73/39 04/02/21 18:32 78 27 92 50 04/02/21 18:00 38.2 83 30 121/49 94 Mechanical Ventilator 50.00 04/02/21 17:00 38.3 84 25 115/48 94 Mechanical Ventilator 50.00 04/02/21 16:30 50 04/02/21 16:00 38.3 84 26 112/51 95 Mechanical Ventilator 50.00 04/02/21 16:00 94 Mechanical Ventilator 50 04/02/21 15:07 82 26 94 50 04/02/21 15:00 38.3 83 25 106/47 94 Mechanical Ventilator 50.00 04/02/21 14:00 38.3 85 25 97/44 93 Mechanical Ventilator 50.00 04/02/21 13:00 38.5 85 24 120/55 97 Mechanical Ventilator 50.00 04/02/21 12:51 84 04/02/21 12:00 50 04/02/21 12:00 38.5 86 25 111/54 96 Mechanical Ventilator 50.00 04/02/21 12:00 94 Mechanical Ventilator 50 04/02/21 11:59 38.5 04/02/21 11:34 84 25 95 50 04/02/21 11:00 38.5 87 25 122/54 95 Mechanical Ventilator 50.00 04/02/21 10:00 38.5 88 24 118/51 96 Mechanical Ventilator 50.00 04/02/21 09:00 38.4 86 25 107/50 95 Mechanical Ventilator 50.00 I & O 04/03/21 07:00 Intake Total 250 ml Output Total 1320 ml Balance -1070 ml Height & Weight Height: 5'2.00" Weight: 150lbs. 11.6oz. 68.003896mt; 26.72 BMI Method:Stated General Appearance: No Apparent Distress, Chronically ill HEENT: PERRL/EOMI, Pharynx Normal Neck: Full Range of Motion, Normal Inspection Respiratory: Other (Coarse breath sounds anteriorly) Cardiovascular: Regular Rate, Rhythm, No Murmur Capillary Refill: Greater Than 3 Seconds Extremity: Other (2-3+ edema of all extremities lower extremities cool some early mottling indicative of progressive decline compared to yesterday) Neurologic/Psychiatric: Other (3T GCS) Skin: Cyanosis, Damp, Diaphoresis Results Lab Laboratory Tests 04/02/21 04:15 04/03/21 05:40 Assessment/Plan Assessment/Plan See free text Critical Care: Ventilator Management JOHANA LOPEZ MD Apr 03, 2021 08:59
[2021-04-03] MEDS: NOREPINEPHRINE 8 MG/250 ML 250 ML IV SCH ×2 (10:06→21:36)
[2021-04-03 10:35] VITALS: BP 133/56
[2021-04-03 14:49] VITALS: BP 123/52
[2021-04-03 18:52] VITALS: BP 106/42
[2021-04-03 21:40] VITALS: BP 105/44
[2021-04-04] MEDS: inSUlin ASPART (NovoLOG) 1 UNIT/0.01 ML (CHARGE PER UNIT) SC SCH ×5 (00:35→23:30)
[2021-04-04 02:35] VITALS: BP 102/40
[2021-04-04] MEDS: RT-ALBUTEROL HFA 8.5 GM INHALER IH SCH ×6 (02:35→22:31)
[2021-04-04 04:09] LABS: ABG BASE EXCESS -8.3 MMOL/L (-2.5-2.5); ABG OXYGEN SATURATION 96 % (94-100); ABG PCO2 29 MMHG (35-45); ABG PH 7.36 (7.37-7.43); ABG PO2 87 MMHG (79-93); ABG TCO2 17.1 MMOL/L (21.0-31.0)
[2021-04-04 04:12] LABS: ALLENS TEST YES-POS; INSPIRED O2 45%; PATIENT TEMP 36.6; VENTILATOR YES
[2021-04-04 04:57] LABS: BASOPHILS # (AUTO) 0.1 10^3/uL (0.0-0.1); BASOPHILS % (AUTO) 0 % (0-10); EOSINOPHILS % (AUTO) 0 % (0-10); HEMOGLOBIN 7.3 g/dL (13.3-17.7); MEAN PLATELET VOLUME 13.4 fL (9.0-12.2)
[2021-04-04] MEDS: NOREPINEPHRINE 8 MG/250 ML 250 ML IV SCH ×3 (04:58→18:21)
[2021-04-04 04:59] LABS: HEMATOCRIT 23 % (40-54); LYMPHOCYTES # (AUTO) 0.6 10^3/uL (1.0-4.0); LYMPHOCYTES % (AUTO) 2 % (12-44); MEAN CORPUSCULAR HEMOGLOBIN 30 pg (25-34); MEAN CORPUSCULAR HGB CONC 32 g/dL (32-36); MEAN CORPUSCULAR VOLUME 96 fL (80-99); MONOCYTES # (AUTO) 0.8 10^3/uL (0.0-1.0); MONOCYTES % (AUTO) 3 % (0-12); NEUTROPHILS # (AUTO) 26.7 10^3/uL (1.8-7.8); NEUTROPHILS % (AUTO) 93 % (42-75); PLATELET COUNT 138 10^3/uL (130-400); WHITE BLOOD COUNT 28.8 10^3/uL (4.3-11.0)
[2021-04-04 05:16] LABS: ALBUMIN 1.8 GM/DL (3.2-4.5)
[2021-04-04 05:19] LABS: TOTAL PROTEIN 4.9 GM/DL (6.4-8.2)
[2021-04-04 05:21] LABS: BILIRUBIN,TOTAL 1.6 MG/DL (0.1-1.0)
[2021-04-04 05:22] LABS: CREATININE SERUM 13.62 MG/DL (0.60-1.30); PHOSPHORUS 18.1 MG/DL (2.3-4.7)
[2021-04-04 05:26] LABS: MAGNESIUM 3.4 MG/DL (1.6-2.4)
[2021-04-04 05:37] LABS: POTASSIUM 7.5 MMOL/L (3.6-5.0)
[2021-04-04 05:38] LABS: CALCIUM 4.3 MG/DL (8.5-10.1)
[2021-04-04] MEDS ORDERED: CALCIUM GLUC. 10% 4.65 MEQ/10 ML VIAL IV ONE (06:00)
[2021-04-04] MEDS ORDERED: inSUlin (REGULAR) HUMAN 1 UNIT/0.01 ML (CHARGE PER UNIT) IV ONE (06:00)
[2021-04-04] MEDS ORDERED: DEXTROSE 50% 50 ML (IMS) SYR IV ONE (06:00)
[2021-04-04] MEDS ORDERED: SODIUM BICARB 8.4% 50 MEQ/50 ML (ABBOTT) SYR IV ONE (06:00)
[2021-04-04] MEDS ORDERED: SOD POLYSTERENE 15 GM/60 ML (KAYEXALATE) UNIT DOSE PR ONE (06:00)
[2021-04-04] MEDS: MAGNESIUM 1 GM/100 ML IVPB 100 ML IV SCH (06:05)
[2021-04-04] MEDS: POTASSIUM CL 10MEQ/50ML IVPB 50 ML IV SCH (06:05)
[2021-04-04] MEDS: KCL 20 MEQ TAB (K-DUR) PO SCH (06:05)
[2021-04-04] MEDS ORDERED: CALCIUM GLUC. 10% 4.65 MEQ/10 ML VIAL ONE (06:06)
[2021-04-04] MEDS ORDERED: inSUlin (REGULAR) HUMAN 1 UNIT/0.01 ML (CHARGE PER UNIT) ONE (06:07)
[2021-04-04] MEDS ORDERED: NS (IVPB) 50 ML ONE (06:07)
[2021-04-04] MEDS ORDERED: SODIUM BICARB 8.4% 50 MEQ/50 ML (ABBOTT) SYR ONE (06:08)
[2021-04-04 06:38] VITALS: BP 110/38
[2021-04-04] MEDS: PROPOFOL DRIP (ICU) 100 ML IV SCH ×2 (08:22→18:22)
[2021-04-04] MEDS: PANTOPRAZOLE 40 MG (PROTONIX) VIAL IV SCH (09:51)
[2021-04-04 09:55] VITALS: BP 219/52
[2021-04-04] MEDS ORDERED: fentaNYL DRIP PRE-MIX 250 ML IV ONE (10:00)
[2021-04-04] MEDS: fentaNYL DRIP PRE-MIX 250 ML IV SCH ×2 (10:30→22:58)
--- NOTE | 2021-04-04 11:57 | Tele-ICU Progress Note ---
Subjective Date Seen by a Provider: Apr 04, 2021 Time Seen by a Provider: 11:57 Sepsis Event Evaluation Height, Weight, BMI Height: 5'2.00" Weight: 150lbs. 11.6oz. [id number]; 26.72 BMI Method:Stated Exam Exam Patient acknowledged, consented, and participated in this virtual visit which was conducted using real time audio/video Vital Signs Date Time Temp Pulse Resp B/P (MAP) Pulse Ox O2 Delivery O2 Flow Rate FiO2 04/04/21 11:00 71 25 83/36 93 Mechanical Ventilator 45.00 04/04/21 10:00 76 25 112/51 92 Mechanical Ventilator 45.00 04/04/21 09:55 76 25 93 45 04/04/21 09:00 76 26 131/47 94 Mechanical Ventilator 45.00 04/04/21 08:23 45 04/04/21 08:00 92 Mechanical Ventilator 45 04/04/21 07:00 77 25 122/47 94 Mechanical Ventilator 45.00 04/04/21 07:00 76 04/04/21 06:45 Mechanical Ventilator 45.00 04/04/21 06:38 75 23 90 45 04/04/21 06:00 36.7 73 24 118/46 96 Mechanical Ventilator 40.00 04/04/21 05:00 37.0 74 26 132/44 98 Mechanical Ventilator 40.00 04/04/21 04:58 122/43 04/04/21 04:52 Mechanical Ventilator 40.00 04/04/21 04:20 45 04/04/21 04:00 97 Mechanical Ventilator 45 04/04/21 04:00 36.4 75 26 122/43 98 Mechanical Ventilator 45.00 04/04/21 03:00 36.6 75 25 106/40 98 Mechanical Ventilator 45.00 04/04/21 02:35 75 26 98 45 04/04/21 02:00 37.0 79 26 122/43 97 Mechanical Ventilator 45.00 04/04/21 01:00 80 04/04/21 01:00 36.7 75 24 118/36 97 Mechanical Ventilator 45.00 04/04/21 00:30 45 04/04/21 00:00 36.8 76 25 114/44 95 Mechanical Ventilator 45.00 04/04/21 00:00 97 Mechanical Ventilator 45 04/03/21 23:00 36.8 80 23 125/42 94 Mechanical Ventilator 45.00 04/03/21 22:00 36.8 80 26 122/44 93 Mechanical Ventilator 45.00 04/03/21 21:40 79 26 93 45 04/03/21 21:36 105/44 04/03/21 21:00 37.2 78 16 116/44 92 Mechanical Ventilator 45.00 04/03/21 20:00 45 04/03/21 20:00 94 Mechanical Ventilator 45 04/03/21 20:00 37.0 78 28 97/40 91 Mechanical Ventilator 45.00 04/03/21 19:00 36.9 78 30 101/40 91 Mechanical Ventilator 45.00 04/03/21 18:59 78 04/03/21 18:52 75 26 92 45 04/03/21 18:00 36.9 75 28 93/38 90 Mechanical Ventilator 45.00 04/03/21 17:00 36.7 76 25 89/37 90 Mechanical Ventilator 45.00 04/03/21 16:00 45 04/03/21 16:00 36.9 73 26 109/45 97 Mechanical Ventilator 45.00 04/03/21 16:00 94 Mechanical Ventilator 50 04/03/21 15:00 37.3 73 24 100/46 96 Mechanical Ventilator 45.00 04/03/21 14:49 72 25 95 45 04/03/21 14:00 37.1 73 25 128/55 96 Mechanical Ventilator 45.00 04/03/21 13:00 74 04/03/21 13:00 37.2 71 26 133/54 96 Mechanical Ventilator 45.00 04/03/21 12:09 36.8 04/03/21 12:00 36.8 73 25 129/55 96 Mechanical Ventilator 45.00 I & O 04/04/21 07:00 Intake Total 370 ml Output Total 900 ml Balance -530 ml Height & Weight Height: 5'2.00" Weight: 150lbs. 11.6oz. [id number]; 26.72 BMI Method:Stated General Appearance: No Apparent Distress, Chronically ill HEENT: PERRL/EOMI, Pharynx Normal Neck: Full Range of Motion, Normal Inspection Respiratory: Other (Coarse breath sounds anteriorly) Cardiovascular: Regular Rate, Rhythm, No Murmur Capillary Refill: Greater Than 3 Seconds Extremity: Other (2-3+ edema of all extremities lower extremities cool some early mottling indicative of progressive decline compared to yesterday) Neurologic/Psychiatric: Other (3T GCS) Skin: Cyanosis, Damp, Diaphoresis Results Lab Laboratory Tests 04/03/21 05:40 04/04/21 04:42 Assessment/Plan Assessment/Plan (Tele-ICU Physician , Progress Note ) Available chart/ vitals / labs / Images reviewed Video assessment done using teleICU camera, rest of exam as per RN Discussed with RN , EXAM PER RN Events overnight : FEBRILE FiO2 - 50 I/O = pos Drips: Pressors: LEVO Sedation gtt: propofol 20 ( RASS -1 ) VENT SETTINGS and ABG reviewed Not candidate for SBT today REVIEWED Cardiovascular Stability / Sedation S core / FI02/PEEP / ABG / CXR Consultants: Hospital course: 03/26- 66 yo M known to have Developmental delay, NIDDM, HTN, arrested at home , on 3 pressors, epi, levo, vaso, severly acidotic A/P Acute resp failure - intubated 03/26 , 45 % today Shock - levo , to wean CHRISSY - off bicarb - WORSENING CR - K is NOW elevated - tX-ED , CONT TO MONITOR - monitor , HD is not available COVID 19 - decadrone IV -Zosyn OFf 04/02 ,/ vanco off s/p cardiac arrest s/p epinephrine with ROSC - as per cards Encephalopaty - post arrest - decrease sedation - attempts leads to significant tachycardia and vent asynchrony - but no respons on minimal sedation ? anoxic brain damage + uremia DM with acute DKA - off insulin drip -ISS Thrombocytopenia - RESOLVED - coffee ground in NG - none now , no acute bleed PROGNOSIS POOR WITH CHRISSY Lines : R IJ (Central Line Necessity Reviewed) Elizondo: + OG: + Nutrition: Analgesia: Anxiety/ delirium VTE Prophylaxis: Stress Ulcer Prophylaxis: ppi Glycemic Control: Plans in collaboration with bedside consultants and IM MDs. Discussed with RN to reach out if any questions or concerns A total of35 minutes of critical care time was devoted to this patient today, required to treat and/or prevent further deterioration of critical care condition ( as above) . SHANIA THACKER MD Apr 04, 2021 11:57
[2021-04-04 14:21] VITALS: BP 146/60
[2021-04-04 16:36] LABS: POTASSIUM 5.6 MMOL/L (3.6-5.0)
[2021-04-04 16:42] LABS: CREATININE SERUM 13.76 MG/DL (0.60-1.30)
[2021-04-04 17:13] LABS: CALCIUM 4.6 MG/DL (8.5-10.1)
[2021-04-04 18:26] VITALS: BP 131/49
--- NOTE | 2021-04-04 19:45 | Progress Note ---
Subjective Subjective/Events-last exam Patient Intubated and Sedated. 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 Review of Systems Unable to obtain Objective Exam Last Set of Vital Signs Vital Signs Date Time Temp Pulse Resp B/P (MAP) Pulse Ox O2 Delivery O2 Flow Rate FiO2 04/04/21 18:26 75 25 92 45 04/04/21 18:21 131/49 04/04/21 18:00 Mechanical Ventilator 45.00 04/04/21 06:00 36.7 Capillary Refill : Greater Than 3 Seconds I&O Intake and Output 04/04/21 00:00 Intake Total 250 ml Output Total 1070 ml Balance -820 ml Intake Oral 0 ml IV Total 250 ml Output Urine Total 720 ml Stool Total 50 ml Gastric Drainage Total 300 ml General: Other (Intubated and Sedated) Lungs: Other (Diminished breath sounds, diffuse crackles and shallow breathing) Heart: Regular Rate Abdomen: Normal Bowel Sounds, Other (distended abdomen) Extremities: Other (auto infarcting fingers and toes bilaterally, large area of necrotic tissue on upper right thigh (new)) Results/Procedures Lab Laboratory Tests 04/04/21 00:26: Glucometer 315H 04/04/21 03:55: Blood Gas Puncture Site RIGHT RADIAL, Blood Gas Patient Temperature 36.6, Arterial Blood pH 7.36L, Arterial Blood Partial Pressure CO2 29L, Arterial Blood Partial Pressure O2 87, Arterial Blood HCO3 16*L, Arterial Blood Total CO2 17.1L , Arterial Blood Oxygen Saturation 96, Arterial Blood Base Excess -8.3L, Norm Test YES-POS, Blood Gas Ventilator Setting YES, Blood Gas Inspired Oxygen 45% 04/04/21 04:42: White Blood Count 28.8H, Red Blood Count 2.43L, Hemoglobin 7.3L, Hematocrit 23L, Mean Corpuscular Volume 96, Mean Corpuscular Hemoglobin 30, Mean Corpuscular Hemoglobin Concent 32, Red Cell Distribution Width 17.4H, Platelet Count 138, Mean Platelet Volume 13.4H, Immature Granulocyte % (Auto) 2, Neutrophils (%) (Au to) 93H, Lymphocytes (%) (Auto) 2L, Monocytes (%) (Auto) 3, Eosinophils (%) (Auto) 0, Basophils (%) (Auto) 0, Neutrophils # (Auto) 26.7H, Lymphocytes # (Auto) 0.6L, Monocytes # (Auto) 0.8, Eosinophils # (Auto) 0.0, Basophils # (Auto) 0.1, Immature Granulocyte # (Auto) 0.6H, Percent Immature Platelet Fraction 7.9H, Sodium Level 156H, Potassium Level 7.5#*H, Chloride Level 103, Carbon Dioxide Level 13L, Anion Gap 40H, Blood Urea Nitrogen 235#*H, Creatinine 13.62#H, Estimat Glomerular Filtration Rate 4, BUN/Creatinine Ratio 9, Glucose Level 383H, Calcium Level 4.3*L, Corrected Calcium 6.1L, Phosphorus Level 18.1H, Magnesium Level 3.4H, Total Bilirubin 1.6H, Aspartate Amino Transf (AST/SGOT) 98H, Alanine Aminotransferase (ALT/SGPT) 49, Alkaline Phosphatase 108, Total Protein 4.9L, Albumin 1.8L 04/04/21 12:12: Glucometer 251H 04/04/21 16:15: Sodium Level 160*H, Potassium Level 5.6H, Chloride Level 106, Carbon Dioxide Level 20L, Anion Gap 34H, Blood Urea Nitrogen 234*H, Creatinine 13.76H, Estimat Glomerular Filtration Rate 4, BUN/Creatinine Ratio 17, Glucose Level 227H, Calcium Level 4.6*L 04/04/21 18:08: Glucometer 198H Microbiology 04/02/21 Blood Culture - Preliminary, Resulted No growth 03/26/21 Urine Culture - Final, Complete NO GROWTH 03/26/21 MRSA Screen - Final, Complete MRSA not isolated Assessment/Plan Assessment/Plan (1) Acute on chronic renal failure Status: Acute Assessment & Plan: 04/04: patient is uremic, still making some urine BUN 230 Cr 13 Qualifiers: Qualified Codes: N17.9 - Acute kidney failure, unspecified; N18.5 - Chronic kidney disease, stage 5 (2) Acute respiratory failure Status: Acute Assessment & Plan: Secondary to COVID19 and possibly bacterial pneumonia. Requiring mechanical ventilation, s/p cardiorespiratory arrest. Appreciate [facility] ICU management. 04/04: Patient continues to be ventilator dependent Qualifiers: Qualified Codes: J96.01 - Acute respiratory failure with hypoxia; J96.02 - Acute respiratory failure with hypercapnia (3) Cardiopulmonary arrest Status: Acute Assessment & Plan: Witnessed at home, s/p epi x 3 by EMS. Appreciate [facility] ICU recommendations. No meaningful responses to this point, family initially requested to wait 3 days after admit and reassess. 2/2- no change in status, has vital sign abnormalities/vent asynchrony when sedation is decreased, but no meaningful movement or response. 2/3- no change in neurologic status (4) COVID-19 Status: Acute Assessment & Plan: Had Moderna vaccine on 06/22 and 2020. On dexamethasone day 7. (5) Hyperglycemia Status: Acute Assessment & Plan: On insulin drip initially. Had marked hypoglycemia, now back in the 200s, off of insulin drip for now. (6) Liver injury Status: Acute Assessment & Plan: Secondary to hypoxia/cardiovascular collapse. Improved somewhat, stable with mild elevation. Qualifiers: Qualified Codes: S36.119A - Unspecified injury of liver, initial encounter (7) Transaminitis Status: Acute (8) Acute kidney injury Status: Acute Assessment & Plan: Secondary to hypotension/cardiovascular collapse. Baseline creatinine around 1.35-1.40 per labs in May 2020 in clinic. Worsening in spite of blood pressure support and IVF. 2/- continued worsening, creatinine up to 5.93 today, without hyperkalemia. 2/2- persistent worsening, creatinine above 6, still making some urine and no hyperkalemia as yet. Continued on bicarb. 2/3- persistently worsening, creatinine now above 7, bicarb discontinued, has metabolic alkalosis, likely related to diarrhea. Potassium remains normal. 2- creatinine above 8, phosphorous and magnesium high, see goals of care. 2: Cr continues to climb, very grave prognosis, family to decide on comfort care tomorrow (9) Lactic acidosis Status: Acute Assessment & Plan: Secondary to cardiovascular collapse. (10) Respiratory acidosis with metabolic acidosis Status: Resolved (11) Diabetes mellitus, type 2 Status: Chronic Assessment & Plan: Last A1c in clinic 05/2020 was over 9, lost to follow up per diabetes team. Qualifiers: Qualified Codes: E11.65 - Type 2 diabetes mellitus with hyperglycemia (12) Thrombocytopenia Status: Acute (13) Coagulopathy Status: Acute Assessment & Plan: Elevated INR and markedly elevated D dimer secondary to multiorgan failure. (14) Multifocal pneumonia Status: Acute Assessment & Plan: Possible bacterial component with COVID19, on zosyn (15) Hypertension Status: Chronic Assessment & Plan: Hypotensive since arrival. Qualifiers: Qualified Codes: I10 - Essential (primary) hypertension (16) Hypernatremia Status: Acute Assessment & Plan: Persistently worsening, in renal failure. (17) Metabolic alkalosis Status: Acute Assessment & Plan: Daily elevating pH, suspect due to diarrhea. (18) Diarrhea Status: Acute Assessment & Plan: Suspect secondary to multiorgan failure and intestinal malabsorption. Qualifiers: Qualified Codes: K90.9 - Intestinal malabsorption, unspecified; R19.7 - Diarrhea, unspecified (19) DVT prophylaxis Status: Acute Assessment & Plan: No pharmacologic due to drastic drop in platelets, decreasing hemoglobin and grossly bloody NG drainage. (20) Goals of care, counseling/discussion Status: Acute Assessment & Plan: 03/28- Spoke with sister Ashley and updated on status, she expressed the family continued to want to pursue aggressive care (other than they would not want him to be coded again) for 3 days and then at that time will decide on goals of care. 03/29- updated Ashley on continued poor condition and worsening kidney function, etc, she states family is not ready to change goals to comfort, offered to have family meeting and scheduled for 11 am tomorrow. 2/2- family meeting today, met with multiple sisters, brother and [id number], discussed current status and they state they understand the situation and agree comfort care is likely the best plan, but his mother has asked them to wait longer and they want to respect her wishes. They will continue to discuss with her. Brother to visit patient shortly to have a better idea of how he is doing to help with decision making. Discussed the risk that he may have an acute event that leads to before changing to comfort care which may preclude the ability to see him prior to , and they stated they understand and will let us know if they are ready to change his status. 03/31- updated Ashley this morning on persistently worsening kidney failure, GI system failure, neurologic abnormalities, she stated she will talk to his mother today and let us know. 04/01- updated Ashley on persistent worsening multi system failure and his cyanotic hands and feet and that I believe it is in his best interest to pursue comfort goals, and I am concerned that we are prolonging suffering and rather than making any improvements, she states she understands and will talk with his mother again today. 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
[2021-04-04 22:31] VITALS: BP 121/50
[2021-04-05 02:20] VITALS: BP 127/52
[2021-04-05] MEDS: RT-ALBUTEROL HFA 8.5 GM INHALER IH SCH ×4 (02:20→14:08)
[2021-04-05 04:15] LABS: BASOPHILS # (AUTO) 0.1 10^3/uL (0.0-0.1); BASOPHILS % (AUTO) 0 % (0-10); EOSINOPHILS % (AUTO) 0 % (0-10); HEMATOCRIT 23 % (40-54); HEMOGLOBIN 7.5 g/dL (13.3-17.7); LYMPHOCYTES # (AUTO) 0.6 10^3/uL (1.0-4.0); LYMPHOCYTES % (AUTO) 2 % (12-44); MEAN CORPUSCULAR HEMOGLOBIN 30 pg (25-34); MEAN CORPUSCULAR HGB CONC 33 g/dL (32-36); MEAN CORPUSCULAR VOLUME 92 fL (80-99); MEAN PLATELET VOLUME 12.8 fL (9.0-12.2); MONOCYTES # (AUTO) 0.7 10^3/uL (0.0-1.0); MONOCYTES % (AUTO) 3 % (0-12); NEUTROPHILS # (AUTO) 25.6 10^3/uL (1.8-7.8); NEUTROPHILS % (AUTO) 93 % (42-75); PLATELET COUNT 177 10^3/uL (130-400); WHITE BLOOD COUNT 27.5 10^3/uL (4.3-11.0)
[2021-04-05 04:32] LABS: POTASSIUM 5.5 MMOL/L (3.6-5.0)
[2021-04-05 04:34] LABS: TOTAL PROTEIN 5.4 GM/DL (6.4-8.2)
[2021-04-05 04:36] LABS: BILIRUBIN,TOTAL 1.3 MG/DL (0.1-1.0)
[2021-04-05 04:38] LABS: CREATININE SERUM 13.92 MG/DL (0.60-1.30)
[2021-04-05 04:41] LABS: MAGNESIUM 3.5 MG/DL (1.6-2.4)
[2021-04-05 04:54] LABS: CALCIUM 4.4 MG/DL (8.5-10.1)
[2021-04-05] MEDS: inSUlin ASPART (NovoLOG) 1 UNIT/0.01 ML (CHARGE PER UNIT) SC SCH ×2 (05:48→11:57)
[2021-04-05] MEDS: PROPOFOL DRIP (ICU) 100 ML IV SCH ×2 (05:49→11:17)
[2021-04-05] MEDS: MAGNESIUM 1 GM/100 ML IVPB 100 ML IV SCH (05:49)
[2021-04-05] MEDS: KCL 20 MEQ TAB (K-DUR) PO SCH (05:49)
[2021-04-05] MEDS: POTASSIUM CL 10MEQ/50ML IVPB 50 ML IV SCH (05:49)
[2021-04-05] MEDS: NOREPINEPHRINE 8 MG/250 ML 250 ML IV SCH (05:51)
[2021-04-05 08:07] VITALS: BP 126/51
[2021-04-05] MEDS: PANTOPRAZOLE 40 MG (PROTONIX) VIAL IV SCH (08:29)
--- NOTE | 2021-04-05 13:45 | Progress Note ---
Subjective Subjective/Events-last exam Patient intubated and sedated. No acute ON events: Hands and feet continue to blacken and dehydrate Review of Systems Unable to obtain Objective Exam Last Set of Vital Signs Vital Signs Date Time Temp Pulse Resp B/P (MAP) Pulse Ox O2 Delivery O2 Flow Rate FiO2 04/05/21 13:00 72 26 124/51 94 Mechanical Ventilator 45.00 04/05/21 10:11 45 04/05/21 07:43 36.8 Capillary Refill : Greater Than 3 Seconds I&O Intake and Output 04/05/21 00:00 Intake Total 120 ml Output Total 1390 ml Balance -1270 ml Intake Oral 0 ml Other 120 ml Output Urine Total 1240 ml Stool Total 100 ml Gastric Drainage Total 50 ml General: Other (Patient intubated and sedated) Lungs: Clear to Auscultation Heart: Regular Rate, No Murmurs Abdomen: Soft Extremities: Other (Dry gangrene present bilateral hands and feet) Results/Procedures Lab Laboratory Tests 04/04/21 16:15: Sodium Level 160*H, Potassium Level 5.6H, Chloride Level 106, Carbon Dioxide Level 20L, Anion Gap 34H, Blood Urea Nitrogen 234*H, Creatinine 13.76H, Estimat Glomerular Filtration Rate 4, BUN/Creatinine Ratio 17, Glucose Level 227H, Calcium Level 4.6*L 04/04/21 18:08: Glucometer 198H 04/04/21 23:24: Glucometer 219H 04/05/21 04:05: Sodium Level 159H, Potassium Level 5.5H, Chloride Level 108H, Carbon Dioxide Level 19L, Anion Gap 32H, Blood Urea Nitrogen 236*H, Creatinine 13.92H, Estimat Glomerular Filtration Rate 4, BUN/Creatinine Ratio 9, Glucose Level 255H, Calcium Level 4.4*L, White Blood Count 27.5H, Red Blood Count 2.48L, Hemoglobin 7.5L, Hematocrit 23L, Mean Corpuscular Volume 92, Mean Corpuscular Hemoglobin 30, Mean Corpuscular Hemoglobin Concent 33, Red Cell Distribution Width 17.4H, Platelet Count 177, Mean Platelet Volume 12.8H, Immature Granulocyte % (Auto) 2, Neutrophils (%) (Auto) 93H, Lymphocytes (%) (Auto) 2L, Monocytes (%) (Auto) 3, Eosinophils (%) (Auto) 0, Basophils (%) (Auto) 0, Neutrophils # (Auto) 25.6H, Lymphocytes # (Auto) 0.6L, Monocytes # (Auto) 0.7, Eosinophils # (Auto) 0.0, Basophils # (Auto) 0.1, Immature Granulocyte # (Auto) 0.6H, Corrected Calcium 6.0L, Phosphorus Level 15.0H, Magnesium Level 3.5H, Total Bilirubin 1.3H, Aspartate Amino Transf (AST/SGOT) 101H, Alanine Aminotransferase (ALT/SGPT) 49, Alkaline Phosphatase 112, Total Protein 5.4L, Albumin 2.0L 04/05/21 11:54: Glucometer 247H Microbiology 04/02/21 Blood Culture - Preliminary, Resulted No growth 03/26/21 Urine Culture - Final, Complete NO GROWTH 03/26/21 MRSA Screen - Final, Complete MRSA not isolated Assessment/Plan Assessment/Plan (1) Acute on chronic renal failure Status: Acute Assessment & Plan: 04/04: patient is uremic, still making some urine BUN 230 Cr 13 Qualifiers: Qualified Codes: N17.9 - Acute kidney failure, unspecified; N18.5 - Chronic kidney disease, stage 5 (2) Acute respiratory failure Status: Acute Assessment & Plan: Secondary to COVID19 and possibly bacterial pneumonia. Requiring mechanical ventilation, s/p cardiorespiratory arrest. Appreciate [facility] ICU management. 04/04: Patient continues to be ventilator dependent Qualifiers: Qualified Codes: J96.01 - Acute respiratory failure with hypoxia; J96.02 - Acute respiratory failure with hypercapnia (3) Cardiopulmonary arrest Status: Acute Assessment & Plan: Witnessed at home, s/p epi x 3 by EMS. Appreciate [facility] ICU recommendations. No meaningful responses to this point, family initially requested to wait 3 days after admit and reassess. 2/2- no change in status, has vital sign abnormalities/vent asynchrony when sedation is decreased, but no meaningful movement or response. 2/3- no change in neurologic status (4) COVID-19 Status: Acute Assessment & Plan: Had Moderna vaccine on 06/22 and 2020. On dexamethasone day 7. (5) Hyperglycemia Status: Acute Assessment & Plan: On insulin drip initially. Had marked hypoglycemia, now back in the 200s, off of insulin drip for now. (6) Liver injury Status: Acute Assessment & Plan: Secondary to hypoxia/cardiovascular collapse. Improved somewhat, stable with mild elevation. Qualifiers: Qualified Codes: S36.119A - Unspecified injury of liver, initial encounter (7) Transaminitis Status: Acute (8) Acute kidney injury Status: Acute Assessment & Plan: Secondary to hypotension/cardiovascular collapse. Baseline creatinine around 1.35-1.40 per labs in May 2020 in clinic. Worsening in spite of blood pressure support and IVF. 03/29- continued worsening, creatinine up to 5.93 today, without hyperkalemia. 2/- persistent worsening, creatinine above 6, still making some urine and no hyperkalemia as yet. Continued on bicarb. 03/31- persistently worsening, creatinine now above 7, bicarb discontinued, has metabolic alkalosis, likely related to diarrhea. Potassium remains normal. 04/01- creatinine above 8, phosphorous and magnesium high, see goals of care. 04/04: Cr continues to climb, very grave prognosis, family to decide on comfort care tomorrow (9) Lactic acidosis Status: Acute Assessment & Plan: Secondary to cardiovascular collapse. (10) Respiratory acidosis with metabolic acidosis Status: Resolved (11) Diabetes mellitus, type 2 Status: Chronic Assessment & Plan: Last A1c in clinic 05/2020 was over 9, lost to follow up per diabetes team. Qualifiers: Qualified Codes: E11.65 - Type 2 diabetes mellitus with hyperglycemia (12) Thrombocytopenia Status: Acute (13) Coagulopathy Status: Acute Assessment & Plan: Elevated INR and markedly elevated D dimer secondary to multiorgan failure. (14) Multifocal pneumonia Status: Acute Assessment & Plan: Possible bacterial component with COVID19, on zosyn (15) Hypertension Status: Chronic Assessment & Plan: Hypotensive since arrival. Qualifiers: Qualified Codes: I10 - Essential (primary) hypertension (16) Hypernatremia Status: Acute Assessment & Plan: Persistently worsening, in renal failure. (17) Metabolic alkalosis Status: Acute Assessment & Plan: Daily elevating pH, suspect due to diarrhea. (18) Diarrhea Status: Acute Assessment & Plan: Suspect secondary to multiorgan failure and intestinal malabsorption. Qualifiers: Qualified Codes: K90.9 - Intestinal malabsorption, unspecified; R19.7 - Diarrhea, unspecified (19) DVT prophylaxis Status: Acute Assessment & Plan: No pharmacologic due to drastic drop in platelets, decreasing hemoglobin and grossly bloody NG drainage. (20) Goals of care, counseling/discussion Status: Acute Assessment & Plan: 03/28- Spoke with sister Ashley and updated on status, she expressed the family continued to want to pursue aggressive care (other than they would not want him to be coded again) for 3 days and then at that time will decide on goals of care. 03/29- updated Ashley on continued poor condition and worsening kidney function, etc, she states family is not ready to change goals to comfort, offered to have family meeting and scheduled for 11 am tomorrow. 03/30- family meeting today, met with multiple sisters, brother and [id number], discussed current status and they state they understand the situation and agree comfort care is likely the best plan, but his mother has asked them to wait longer and they want to respect her wishes. They will continue to discuss with her. Brother to visit patient shortly to have a better idea of how he is doing to help with decision making. Discussed the risk that he may have an acute event that leads to before changing to comfort care which may preclude the ability to see him prior to , and they stated they understand and will let us know if they are ready to change his status. 03/31- updated Ashley this morning on persistently worsening kidney failure, GI system failure, neurologic abnormalities, she stated she will talk to his mother today and let us know. 04/01- updated Ashley on persistent worsening multi system failure and his cyanotic hands and feet and that I believe it is in his best interest to pursue comfort goals, and I am concerned that we are prolonging suffering and rather than making any improvements, she states she understands and will talk with his mother again today. 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
[2021-04-05 13:56] VITALS: BP 105/42
[2021-04-05] MEDS ORDERED: SALIVA STIMULANT MOUTH SPRAY (BIOTENE) 1.5 OZ MM PRN (14:00)
[2021-04-05] MEDS ORDERED: ARTIFICAL TEARS 0.4 ML UNIT DOSE (REFRESH PLUS) OU PRN (14:00)
[2021-04-05] MEDS ORDERED: LORazepam INJ 2 MG/ML (ATIVAN) VIAL IVP PRN (14:00)
[2021-04-05] MEDS ORDERED: PROMETHAZINE INJ 25 MG/ML (PHENERGAN) AMP IVP PRN (14:00)
[2021-04-05] MEDS ORDERED: GLYCOPYRROLATE 0.2 MG/ML (ROBINUL) 2 ML VIAL IV PRN (14:00)
[2021-04-05] MEDS ORDERED: ONDANSETRON 4 MG/2 ML (SDV) Z0FRAN IVP PRN (14:00)
[2021-04-05] MEDS: fentaNYL DRIP PRE-MIX 250 ML IV SCH (14:36)
== END 2021-04-05 19:20 | disposition expired | DRG 207 ==
LOC: EDUNIT# 19:32 → ER 19:34 → ICU 21:30
PROVIDERS: ADMIT Internal Medicine; ATTEND Family Medicine
PROC: 0BH17EZ Insertion of Endotracheal Airway into Trachea, Via Natural or Artificial Opening (ICD-10-PCS; principal; 2021-03-26)
PROC: 5A1955Z Respiratory Ventilation, Greater than 96 Consecutive Hours (ICD-10-PCS; 2021-03-26)
DX: U07.1 COVID-19 (principal); J12.82 Pneumonia due to coronavirus disease 2019; J96.01 Acute respiratory failure with hypoxia; K72.00 Acute and subacute hepatic failure without coma; E11.10 Type 2 diabetes mellitus with ketoacidosis without coma; J96.02 Acute respiratory failure with hypercapnia; N17.9 Acute kidney failure, unspecified; R57.9 Shock, unspecified; I47.2 Ventricular tachycardia; E87.0 Hyperosmolality and hypernatremia; G93.1 Anoxic brain damage, not elsewhere classified; E87.2 Acidosis; E87.4 Mixed disorder of acid-base balance; I96 Gangrene, not elsewhere classified; Z66 Do not resuscitate; Z51.5 Encounter for palliative care; I46.9 Cardiac arrest, cause unspecified; Z79.84 Long term (current) use of oral hypoglycemic drugs; I12.9 Hypertensive chronic kidney disease with stage 1 through stage 4 chronic kidney disease, or unspecified chronic kidney disease; E11.22 Type 2 diabetes mellitus with diabetic chronic kidney disease; N18.9 Chronic kidney disease, unspecified; E78.00 Pure hypercholesterolemia, unspecified; R41.89 Other symptoms and signs involving cognitive functions and awareness; K21.9 Gastro-esophageal reflux disease without esophagitis; I73.89 Other specified peripheral vascular diseases; I49.3 Ventricular premature depolarization; I45.10 Unspecified right bundle-branch block; R62.50 Unspecified lack of expected normal physiological development in childhood; H91.90 Unspecified hearing loss, unspecified ear; D69.6 Thrombocytopenia, unspecified; R19.7 Diarrhea, unspecified; E83.39 Other disorders of phosphorus metabolism; E83.41 Hypermagnesemia; E83.51 Hypocalcemia
CPT/HCPCS: 31500; 36415; 71045; 80048; 80053; 81000; 82805; 82947; 83036; 83605; 83735; 84100; 84145; 84478; 84484; 85007; 85025; 85027; 85379; 85610; 85730; 86141; 87040; 87081; 87088; 87186; 87636; 87804; 93005; 94003; 94640; 94799; 96361; 96365; 96366; 96367; 96368; 96375; 99291